=== PATIENT | male | born 1940 | race Caucasian/White ===

== ENCOUNTER → 2016-05-26 | Outpatient (CLI) | payer OTHER ==
[~2016-05-26] MED LIST: CARV6.252 PO; CHOL1TAB42 PO; CHOL20009 PO; CHOLCAP5 PO; ESCI1TAB10 PO; FURO20TA PO; GLC/500 PO; GLIM4TAB PO; GLIM4TAB2 PO; LPT/40 PO; METF1TAB53 PO; RAMI5CAP PO; ZLF/50 PO
--- NOTE | 2016-05-26 15:14 | DIAGNOSTIC IMAGING REPORT ---
TWO VIEW CHEST CLINICAL HISTORY: Hypertension. Diabetes. Cardiomyopathy. FINDINGS: PA and lateral chest radiographs are compared to study dated 02/04/2016. The PA view is degraded by patient rotation. The heart is enlarged and there is atherosclerotic calcification of the thoracic aorta. The pulmonary vasculature is noncongested. Chronic interstitial thickening is similar to previous. There is mild eventration of the right hemidiaphragm. Minimal bibasilar atelectasis is observed. There is no airspace consolidation or pleural effusion. There is no pneumothorax. The skeletal structures are osteopenic. The bony thorax appears intact. IMPRESSION: Cardiomegaly with no active disease in the chest. Electronically signed by: Yousif Basilio M.D. 05/26/2016 3:12 PM Dictated Date/Time: 05/26/2016 3:11 PM
[2016-05-26 17:19] LABS: BLOOD UREA NITROGEN 18 mg/dl (7-18); BUN/CREATININE RATIO 16.1 (10-20); CALCIUM 9.2 mg/dl (8.5-10.1); CARBON DIOXIDE 32 mmol/L (21-32); CHLORIDE 101 mmol/L (98-107); GLUCOSE 165 mg/dl (70-99); SODIUM 139 mmol/L (136-145)
== END | disposition home or self-care (01) ==
LOC: C.RADBC 14:48
PROVIDERS: ATTEND Internal Medicine Geriatric Medicine
DX: E11.9 Type 2 diabetes mellitus without complications (principal); I10 Essential (primary) hypertension; I42.9 Cardiomyopathy, unspecified; R06.02 Shortness of breath; I51.7 Cardiomegaly

== ENCOUNTER 2016-06-14 03:13 | Emergency (ER) | payer OTHER ==
[~2016-06-14] VITALS: Ht 185.4 cm; Wt 109.0 kg
[~2016-06-14 03:13] MED LIST changes: -CHOL1TAB42 PO; -CHOLCAP5 PO; -ESCI1TAB10 PO; -GLIM4TAB2 PO; -METF1TAB53 PO
[2016-06-14 03:19] VITALS: TEMP 36.8; Ht 185.4 cm; Wt 109.0 kg
[2016-06-14] MEDS ORDERED: HYDROCODONE/HOMATROPINE SYRUP 5MG/1.5MG 5ML UDP PO STA (03:29)
[2016-06-14] MEDS ORDERED: ALBUT/IPRATROP 3MG/0.5MG NEB 3 ML VIAL INH STA (03:29)
--- NOTE | 2016-06-14 03:33 | EMERGENCY ROOM VISIT NOTE ---
History Report prepared by Jeremías: Carina Dorantes Under the Supervision of: Dr. Vinh Pelayo M.D. 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 The patient states that he saw his PCP about 1 week ago for a cough and had a chest x-ray with no pneumonia seen on the X-Ray. The patient states he saw his PCP again today and he believed that the patient has pneumonia and prescribe him a Z-pac. The patient states that due to his coughing and wheezing he has been unable to sleep the last 2-3 days causing him to come into the ED tonight. The patient denies any chest pain or swelling or pain in his legs. The patient denies any history of bronchitis or asthma. Source of History: patient Onset: 1 week DELIVERY STOCK CLERK Position: chest Timing: worsening Associated Symptoms: No chest pain Note: Associated symptoms: unable to sleep. Patient denies swelling or pain in legs. Review of Systems See HPI for pertinent positives & negatives. A total of 10 systems reviewed and were otherwise negative. Past Medical & Surgical Medical Problems: (1) Benign hypertension (2) Diabetes mellitus (3) Hyperlipidemia (4) Kidney stone Family History Diabetes mellitus Hypertension Kidney disease Kidney stones Social History Smoking Status: Never Smoker Alcohol Use: none Marital Status: Housing Status: lives with family Occupation Status: retired Current/Historical Medications Scheduled Atorvastatin (Lipitor), 40 MG PO QPM Carvedilol (Coreg), 1 TAB PO DAILY Cholecalciferol (Vitamin D), 2,000 MG PO BID Furosemide (Lasix), 1 TAB PO DAILY Glimepiride (Amaryl), 4 MG PO QAM Metformin Hcl (Glucophage), 500 MG PO QPM Ramipril (Ramipril), 5 MG PO DAILY AT NOON Sertraline HCl (Sertraline HCl), 50 MG PO DAILY Allergies Coded Allergies: Penicillins (Verified Allergy, Mild, 35 YRS AGO DEVELOPED RASH, 07/13/15) Physical Exam Vital Signs Date Time Temp Pulse Resp B/P Pulse Ox O2 Delivery O2 Flow Rate FiO2 06/14/16 03:58 106 18 123/75 94 Room Air 06/14/16 03:19 36.8 92 18 142/78 92 Room Air Physical Exam GENERAL: Patient is well appearing and in no acute distress. HEENT: No acute trauma, normocephalic atraumatic, mucous membranes moist, no nasal congestion, no scleral icterus. NECK: No stridor, no adenopathy, no meningismus, trachea is midline. LUNGS: Bilateral expiratory wheezing in both bases. HEART: Regular rate and rhythm. No murmurs, rubs, gallops appreciated. ABDOMEN: Soft, nontender, bowel sounds positive, no masses appreciated, no peritonitis. BACK: No midline tenderness, no CVA tenderness EXTREMITIES: Normal motion all extremities, no cyanosis, no edema. NEUROLOGIC: Alert and oriented, no acute motor or sensory deficits, no focal weakness, cranial nerves grossly intact. SKIN: No rash, no jaundice, no diaphoresis. Medical Decision & Procedures Medications Administered Medications (Trade) Dose Ordered Sig/Anastasiya Route Start Time Stop Time Status Last Admin Dose Admin Hydrocodone Bit/ Homatropine Methylb (Hycodan Syrup) 10 ml NOW STAT PO 06/14/16 03:29 06/14/16 03:30 DC 06/14/16 03:34 10 ML Albuterol/ Ipratropium (Duoneb) 6 ml NOW STAT INH 06/14/16 03:29 06/14/16 03:30 DC 06/14/16 03:34 6 ML Hydrocodone Bit/ Homatropine Methylb (Hycodan Elix Homepack 5/1.5MG/ 5ML) 1 homepack UD ONCE PO 06/14/16 04:15 06/14/16 04:16 DC 06/14/16 04:15 1 HOMEPACK ED Course 0323: The patient was evaluated in room A4. A complete history and physical exam was performed. 0329: Ordered DuoNeb 6 ml INH, Hycodan Syrup 10 ml PO. 0410: I reevaluated the patient and he states he is feeling much better and his breathing has improved. He has no more wheezing and wants to go home to sleep. The patient states he will follow up with his primary doctor in a few days. I discussed the discharge instructions: He verbalized understanding and agreement. The patient is ready for discharge. 0415: Ordered Albuterol 2 puffs INH, Hydrocodone Bit/ Homatropine methylb1 homepack PO. Medical Decision Differential: Infectious, Reactive Airway Disease, Pneumonia, Pneumothorax, COPD , CHF, ACS, Pulmonary Embolism, MSK, GI, Dissection, amongst other etiologies entertained. 75 yr old male arrives with persistent shob despite use of Tessalon pearls. Clearly bronchitis by exam though just started zpack. Hold steroids as he is diabetic. vast improvement with neb thus will send home with inhaler. He has great improvement in cough with hycodan. Discussed use and restrictions of both of these. No indication nor history to work up for PE and he has no hallmark of CHF. As he is feeling much improved will hold on any testing as he plans on following up with PCP in next few days. Discussed rted if worsening or other concerns. Impression Primary Impression: Acute bronchitis Scribe Attestation The scribe's documentation has been prepared under my direction and personally reviewed by me in its entirety. I confirm that the note above accurately reflects all work, treatment, procedures, and medical decision making performed by me. Departure Information Dispostion Home / Self-Care Referrals No Doctor, Assigned (PCP) Forms HOME CARE DOCUMENTATION FORM, IMPORTANT VISIT INFORMATION, WORK / SCHOOL INSTRUCTIONS Patient Instructions Bronchitis Acute, My [facility] Additional Instructions You have received a sedative cough medication. These medications may cause drowsiness and should not be used with other sedative medications. Do not drive , drink alcohol, perform dangerous activities, nor make important decisions after taking these medications. Problem Qualifiers Primary Impression: Acute bronchitis Bronchitis organism: unspecified organism Qualified Codes: J20.9 - Acute bronchitis, unspecified
[2016-06-14 03:58] VITALS: BP 123/75; PULSE 106; O2SAT 94
[2016-06-14] MEDS ORDERED: ALBUTEROL HFA 8 GM INHALER INH ONE (04:15)
[2016-06-14] MEDS ORDERED: HYCODAN 60ML BOTTLE HOMEPACK PO ONE (04:15)
[2016-09-08] MEDS ORDERED: METF1TAB53 PO (12:35)
[2016-09-08] MEDS ORDERED: FURO20TA PO (12:35)
[2016-09-08] MEDS ORDERED: GLIM4TAB2 PO (12:35)
[2016-09-08] MEDS ORDERED: CHOL1TAB42 PO (12:35)
[2016-09-08] MEDS ORDERED: ESCI1TAB10 PO (12:35)
== END 2016-06-14 04:31 | disposition home or self-care (01) ==
LOC: C.EDB 03:13 → C.EDA 04:31
DX: J20.9 Acute bronchitis, unspecified (principal); I10 Essential (primary) hypertension; E11.9 Type 2 diabetes mellitus without complications; E78.5 Hyperlipidemia, unspecified; Z83.3 Family history of diabetes mellitus; Z84.1 Family history of disorders of kidney and ureter

== ENCOUNTER → 2016-06-20 | Outpatient (CLI) | payer OTHER ==
[~2016-06-20] MED LIST changes: +CHOL1TAB42 PO; +CHOLCAP5 PO; +ESCI1TAB10 PO; +GLIM4TAB2 PO; +METF1TAB53 PO; +OPTIRAY 320 IV PRN
--- NOTE | 2016-06-20 14:54 | DIAGNOSTIC IMAGING REPORT ---
CT OF THE CHEST WITH IV CONTRAST CLINICAL HISTORY: Persistent cough. COMPARISON STUDY: Chest x-ray dated 05/26/2016 TECHNIQUE: Following the IV administration of 94 mL of Optiray-320, CT of the thorax was performed from the thoracic inlet to the lung bases. Images are reviewed in the axial, sagittal, and coronal planes. IV contrast was administered without complication. CT DOSE: 625.30 mGycm FINDINGS: Thyroid: Imaged portions of the thyroid gland are normal in appearance. Thoracic aorta: The thoracic aorta is normal in course and caliber, noting standard 3-vessel arch anatomy. No aneurysm or dissection is seen. Pulmonary vasculature: The pulmonary trunk is normal in caliber. There are no central filling defects identified to suggest pulmonary embolus. Note that this examination was not protocoled for the evaluation of pulmonary emboli. HEART: The heart is mildly enlarged. There is no evidence of a pericardial effusion. Lungs and pleural spaces: There are no pleural effusions. There is no lobar consolidation. There is mild lower lobe bronchial wall thickening. There are basilar atelectatic changes. There are several low suspicion subcentimeter 06/19/2016 fissure nodules. Mediastinum: There are mildly enlarged lymph nodes in the subcarinal region and as ago esophageal recess. Ruth: There are calcified right hilar lymph nodes. There are borderline enlarged bilateral hilar lymph nodes Axilla: There is no evidence of pathologic axillary lymphadenopathy Upper abdomen: There is a calcified gallstone. There is a 5 mm right renal calculus. Skeletal structures: There are no lytic or blastic osseous lesions. IMPRESSION: 1. No evidence of lobar consolidation 2. Lower lobe bronchial wall thickening and basilar atelectasis 3. Mild adenopathy 4. Cholelithiasis 5. Right-sided nephrolithiasis Electronically signed by: Chase Choi M.D. 06/20/2016 2:52 PM Dictated Date/Time: 06/20/2016 2:47 PM
== END | disposition home or self-care (01) ==
LOC: C.CTS 14:33
PROVIDERS: ATTEND Internal Medicine Geriatric Medicine
DX: R05 Cough (principal); R91.8 Other nonspecific abnormal finding of lung field; K80.20 Calculus of gallbladder without cholecystitis without obstruction; N20.0 Calculus of kidney

== ENCOUNTER → 2016-08-16 | Outpatient (CLI) | payer OTHER ==
[~2016-08-16] MED LIST changes: -OPTIRAY 320 IV PRN
[2016-08-16 13:03] LABS: BASO % 0.1 %; BASO ABS # 0.01 K/uL (0-0.2); COMPLETE YES; HEMATOCRIT 42.6 % (42-52); IG% 0.2 %; LYMPH % 11.9 %; LYMPH ABS # 1.13 K/uL (1.2-3.4); MEAN CELL VOLUME 86.8 fL (80-100); MEAN CORPUSCULAR HEMOGLOBIN 29.7 pg (25-34); MEAN CORPUSCULAR HGB CONC 34.3 g/dl (32-36); NEUT % 79.8 %; PLATELET COUNT 156 K/uL (130-400); RED BLOOD COUNT 4.91 M/uL (4.7-6.1); WHITE BLOOD COUNT 9.53 K/uL (4.8-10.8)
[2016-08-16 13:08] LABS: BLOOD UREA NITROGEN 15 mg/dl (7-18); BUN/CREATININE RATIO 17.7 (10-20); CALCIUM 9.1 mg/dl (8.5-10.1); CARBON DIOXIDE 33 mmol/L (21-32); CHLORIDE 102 mmol/L (98-107); CREATININE 0.86 mg/dl (0.60-1.40); GLUCOSE 208 mg/dl (70-99); POTASSIUM 3.9 mmol/L (3.5-5.1); SODIUM 140 mmol/L (136-145)
[2016-08-16 13:57] LABS: ESTIMATED AVERAGE GLUCOSE 169 mg/dl; HA1C FLAG Normal (Normal)
== END | disposition home or self-care (01) ==
LOC: C.LABPBG 09:45
PROVIDERS: ATTEND Internal Medicine Geriatric Medicine
DX: E11.9 Type 2 diabetes mellitus without complications (principal)

== ENCOUNTER → 2016-08-18 | Outpatient (CLI) | payer OTHER ==
--- NOTE | 2016-08-18 14:12 | DIAGNOSTIC IMAGING REPORT ---
CHEST 2 VIEWS ROUTINE CLINICAL HISTORY: TYPE 2 DIABETES MELLITUS dyspnea COMPARISON STUDY: 05/26/2016 FINDINGS: The bones soft tissues and hemidiaphragms are normal. The cardiomediastinal silhouette is normal. The lungs are clear. The pulmonary vasculature is normal. IMPRESSION: Negative chest. Electronically signed by: Theron Rodriguez M.D. 08/18/2016 2:10 PM Dictated Date/Time: 08/18/2016 2:10 PM
== END | disposition home or self-care (01) ==
LOC: C.RADBC 13:28
PROVIDERS: ATTEND Internal Medicine Geriatric Medicine
DX: E11.9 Type 2 diabetes mellitus without complications (principal)

== ENCOUNTER → 2016-09-15 | Day surgery (SDC) | payer OTHER ==
[2016-09-08 12:36] VITALS: Ht 185.4 cm; Wt 106.4 kg
[~2016-09-15] VITALS: Ht 185.4 cm; Wt 106.4 kg
[~2016-09-15] MED LIST changes: -CHOL20009 PO; -GLC/500 PO; -GLIM4TAB PO; +KETAMINE HCL INJ 50 MG/ML 10 ML VIAL ONE; +LIDOCAINE HCL 2% 2 ML VIAL (20MG/ML) ONE; +MIDAZOLAM HCL 1 MG/ML 2ML VIAL ONE; +PROPOFOL IV EMULSION 10 MG/ML 20 ML VIAL IV ONE; -RAMI5CAP PO; +SODIUM CHLORIDE 0.9% 500ML 500 ML IV ONE; -ZLF/50 PO
--- NOTE | 2016-09-15 14:30 | Endo History and Physical ---
History & Physical Date of Service: September 15, 2016. Chief Complaint: GERD,constipation Referring Physician: Dr. Dewey Guzman History of Present Illness constipation/GERD Past Medical History Diabetes, Arthritis, High Cholesterol, Hypertension Past Surgical History Hx Cardiac Surgery: Yes (HEART CATH X 3 (NO STENTS)) Hx Internal Defibrillator: No Hx Pacemaker: No Hx Abdominal Surgery: No Hx of Implantable Prosthesis: No Hx Post-Op Nausea and Vomiting: No Hx Cancer Surgery: No Hx Thoracic Surgery: No Hx Orthopedic: Yes (RT TKA, LEFT ACHILLES TENDON REPAIR) Hx Urinary Tract Surgery: Yes (LITHOTRIPSY) Family History None Social History Smoking Status: Never Smoker Hx Substance Use: No Hx Alcohol Use: Yes (1 BEER DAILY) Allergies Coded Allergies: Penicillins (Verified Allergy, Mild, 35 YRS AGO DEVELOPED RASH, 09/08/16) Sertraline (Verified Allergy, Unknown, DID NOT TOLERATE MED, 09/08/16) Current Medications Reported Home Medications Medications Dose Route/Sig Max Daily Dose Days Date Category Vitamin D (Cholecalciferol) 5,000 Unit Tab 1 Tab PO DAILY AT LUNCH 09/08/16 Reported Glimepiride 4 Mg Tab 1 Tab PO QAM 90 09/08/16 Reported Glucophage Ext Rel (Metformin Hcl) 1,000 Mg Tab 1,000 Mg PO DAILY AT LUNCH 09/08/16 Reported Lasix (Furosemide) 20 Mg Tab 20 Mg PO QAM 09/08/16 Reported Lexapro (Escitalopram Oxalate) 20 Mg Tab 20 Mg PO QAM 09/08/16 Reported Coreg (Carvedilol) 6.25 Mg Tab 1 Tab PO QPM 02/23/15 Reported Lipitor (Atorvastatin) 40 Mg Tab 40 Mg PO QPM 08/11/12 Reported Vital Signs Weight (Kilograms): 106.36 Height (Feet): 6 Height (Inches): 1 Date Time Temp Pulse Resp B/P Pulse Ox O2 Delivery O2 Flow Rate FiO2 09/15/16 13:30 36.5 54 20 139/87 95 Room Air Physical Exam AAO x3 Nl s1s2 Lungs CTA Abd soft NT/ND + BS - CCE Assessment and Plan EGD/colon
--- NOTE | 2016-09-15 15:38 | GI REPORT ---
Procedure Date: 09/15/2016 1:25 PM Procedure: Colonoscopy Indications: Heme positive stool Medicines: Propofol per Anesthesia Complications: No immediate complications. Estimated blood loss: None. Estimated Blood Loss: Estimated blood loss: none. Procedure: Pre-Anesthesia Assessment: - Prior to the procedure, a History and Physical was performed, and patient medications and allergies were reviewed. The patient's tolerance of previous anesthesia was also reviewed. The risks and benefits of the procedure and the sedation options and risks were discussed with the patient. All questions were answered, and informed consent was obtained. Prior Anticoagulants: The patient has taken no previous anticoagulant or antiplatelet agents. ASA Grade Assessment: III - A patient with severe systemic disease. After reviewing the risks and benefits, the patient was deemed in satisfactory condition to undergo the procedure. After I obtained informed consent, the scope was passed under direct vision. Throughout the procedure, the patient's blood pressure, pulse, and oxygen saturations were monitored continuously. The scope was introduced through the anus and advanced to the terminal ileum, with identification of the appendiceal orifice and IC valve. The colonoscopy was performed without difficulty. The patient tolerated the procedure well. The quality of the bowel preparation was good. Findings: The perianal and digital rectal examinations were normal. Pertinent negatives include normal sphincter tone, no palpable rectal lesions and no anal lesion or abnormality was detected. Two sessile polyps were found at 90 cm proximal to the anus. The polyps were 8 mm in size. These polyps were removed with a hot snare. Resection and retrieval were complete. Estimated blood loss was minimal. Verification of patient identification for the specimen was done by the physician and cathodic protection technician using the patient's name and medical record number. A 6 mm polyp was found at 40 cm proximal to the anus. The polyp was sessile. The polyp was removed with a cold snare. Resection and retrieval were complete. Estimated blood loss was minimal. Verification of patient identification for the specimen was done by the physician and cathodic protection technician using the patient's name and medical record number. The terminal ileum appeared normal. The exam was otherwise without abnormality. The retroflexed view of the distal rectum and anal verge was normal and showed no anal or rectal abnormalities. Non-bleeding internal hemorrhoids were found during retroflexion. The hemorrhoids were mild. Impression: - Two 8 mm polyps at 90 cm proximal to the anus, removed with a hot snare. Resected and retrieved. - One 6 mm polyp at 40 cm proximal to the anus, removed with a cold snare. Resected and retrieved. - The examined portion of the ileum was normal. - The examination was otherwise normal. - The distal rectum and anal verge are normal on retroflexion view. - Non-bleeding internal hemorrhoids. Recommendation: - Patient has a contact number available for emergencies. The signs and symptoms of potential delayed complications were discussed with the patient. Return to normal activities tomorrow. Written discharge instructions were provided to the patient. - Resume regular diet. - Repeat colonoscopy for surveillance based on pathology results. - Return to referring physician as previously scheduled. - Continue present medications. MD Brian Frost MD 09/15/2016 3:37:51 PM This report has been signed electronically. Note Initiated On: 09/15/2016 1:25 PM I attest to the content of the Intraoperative Record and orders documented therein, exceptions below
--- NOTE | 2016-09-15 15:42 | GI REPORT ---
Procedure Date: 09/15/2016 1:24 PM Procedure: Upper GI endoscopy Indications: Heme positive stool Medicines: Propofol per Anesthesia Complications: No immediate complications. Estimated Blood Loss: Estimated blood loss: none. Procedure: Pre-Anesthesia Assessment: - Prior to the procedure, a History and Physical was performed, and patient medications and allergies were reviewed. The patient's tolerance of previous anesthesia was also reviewed. The risks and benefits of the procedure and the sedation options and risks were discussed with the patient. All questions were answered, and informed consent was obtained. Prior Anticoagulants: The patient has taken no previous anticoagulant or antiplatelet agents. ASA Grade Assessment: III - A patient with severe systemic disease. After reviewing the risks and benefits, the patient was deemed in satisfactory condition to undergo the procedure. After obtaining informed consent, the endoscope was passed under direct vision. Throughout the procedure, the patient's blood pressure, pulse, and oxygen saturations were monitored continuously. The scope was introduced through the mouth, and advanced to the mid-jejunum. The upper GI endoscopy was accomplished without difficulty. The patient tolerated the procedure well. Findings: The examined esophagus was normal. The entire examined stomach was normal. The examined duodenum was normal. The examined jejunum was normal. The cardia and gastric fundus were normal on retroflexion. Retained gastric contents are not identified on this exam. The Z-line was irregular and was found 39 cm from the incisors. Impression: - Normal esophagus. - Normal stomach. - Normal examined duodenum. - Normal examined jejunum. - No specimens collected. Recommendation: - Discharge patient to home (ambulatory). - Patient has a contact number available for emergencies. The signs and symptoms of potential delayed complications were discussed with the patient. Return to normal activities tomorrow. Written discharge instructions were provided to the patient. - Perform a colonoscopy today. MD Brian Frost MD 09/15/2016 3:41:31 PM This report has been signed electronically. Note Initiated On: 09/15/2016 1:24 PM I attest to the content of the Intraoperative Record and orders documented therein, exceptions below
--- NOTE | 2016-09-15 15:43 | Anesthesiology Progress Note ---
Anesthesia Post Op Note Date & Time September 15, 2016 at 15:43 Vital Signs Pain Intensity: 0 Vital Signs Past 12 Hours Date Time Temp Pulse Resp B/P Pulse Ox O2 Delivery O2 Flow Rate FiO2 09/15/16 15:23 82 20 110/76 94 Room Air 09/15/16 13:30 36.5 54 20 139/87 95 Room Air Notes Mental Status: alert / awake / arousable, participated in evaluation Pt Amnestic to Procedure: Yes Nausea / Vomiting: adequately controlled Pain: adequately controlled Airway Patency, RR, SpO2: stable & adequate BP & HR: stable & adequate Hydration State: stable & adequate Anesthetic Complications: no major complications apparent
--- NOTE | 2016-09-15 15:49 | Discharge Instructions ---
Endoscopy Patient Instructions Date / Procedure(s) Performed September 15, 2016. Colonoscopy, EGD Allergy Information Coded Allergies: Penicillins (Verified Allergy, Mild, 35 YRS AGO DEVELOPED RASH, 09/08/16) Sertraline (Verified Allergy, Unknown, DID NOT TOLERATE MED, 09/08/16) Discharge Date / Findings September 15, 2016. Medication Instructions Stopped Medication(s): stopped Metformin on Monday Restart Stopped Medication(s): Reported Home Medications Medications Dose Route/Sig Max Daily Dose Days Date Category Vitamin D (Cholecalciferol) 5,000 Unit Tab 1 Tab PO DAILY AT LUNCH 09/08/16 Reported Glimepiride 4 Mg Tab 1 Tab PO QAM 90 09/08/16 Reported Glucophage Ext Rel (Metformin Hcl) 1,000 Mg Tab 1,000 Mg PO DAILY AT LUNCH 09/08/16 Reported Lasix (Furosemide) 20 Mg Tab 20 Mg PO QAM 09/08/16 Reported Lexapro (Escitalopram Oxalate) 20 Mg Tab 20 Mg PO QAM 09/08/16 Reported Coreg (Carvedilol) 6.25 Mg Tab 1 Tab PO QPM 02/23/15 Reported Lipitor (Atorvastatin) 40 Mg Tab 40 Mg PO QPM 08/11/12 Reported Reported Home Medications Medications Dose Route/Sig Max Daily Dose Days Date Category Vitamin D (Cholecalciferol) 5,000 Unit Tab 1 Tab PO DAILY AT LUNCH 09/08/16 Reported Glimepiride 4 Mg Tab 1 Tab PO QAM 90 09/08/16 Reported Glucophage Ext Rel (Metformin Hcl) 1,000 Mg Tab 1,000 Mg PO DAILY AT LUNCH 09/08/16 Reported Lasix (Furosemide) 20 Mg Tab 20 Mg PO QAM 09/08/16 Reported Lexapro (Escitalopram Oxalate) 20 Mg Tab 20 Mg PO QAM 09/08/16 Reported Coreg (Carvedilol) 6.25 Mg Tab 1 Tab PO QPM 02/23/15 Reported Lipitor (Atorvastatin) 40 Mg Tab 40 Mg PO QPM 08/11/12 Reported Provider Instructions Activity Restrictions - No exercising or heavy lifting for 24 hours. - Do not drink alcohol the day of the procedure. - Do not drive a car or operate machinery until the day after the procedure. - Do not make any important decisions or sign important papers in 24 hours after the procedure. Following Day: - Return to full activity which may include returning to work/school. Diet Start your diet with liquids and light foods (jello, soup, juice, toast). Then eat your usual diet if not nauseated. Treatment For Common After Affects For mild abdominal pain, bloating, or excessive gas: - Rest - Eat lightly - Lie on right side Reported Home Medications Medications Dose Route/Sig Max Daily Dose Days Date Category Vitamin D (Cholecalciferol) 5,000 Unit Tab 1 Tab PO DAILY AT LUNCH 09/08/16 Reported Glimepiride 4 Mg Tab 1 Tab PO QAM 90 09/08/16 Reported Glucophage Ext Rel (Metformin Hcl) 1,000 Mg Tab 1,000 Mg PO DAILY AT LUNCH 09/08/16 Reported Lasix (Furosemide) 20 Mg Tab 20 Mg PO QAM 09/08/16 Reported Lexapro (Escitalopram Oxalate) 20 Mg Tab 20 Mg PO QAM 09/08/16 Reported Coreg (Carvedilol) 6.25 Mg Tab 1 Tab PO QPM 02/23/15 Reported Lipitor (Atorvastatin) 40 Mg Tab 40 Mg PO QPM 08/11/12 Reported Follow-Up Information Follow-up with Dr. Dewey Guzman as scheduled Anesthesia Information What You Should Know You have had a procedure that required some medicine to reduce anxiety and discomfort. This treatment is called moderate sedation. After receiving the treatment, you may be sleepy, but you will be able to breathe on your own. The effects of the treatment may last for several hours. Follow these instructions along with Activity/Diet recommendations noted above: * Do NOT do anything where dizziness or clumsiness would be dangerous. * Rest quietly at home today, then you can be up and about tomorrow. * Have a responsible person stay with you the rest of today. * You may have had an I.V. today. If so, you may take the dressing off later today. Recommendations Call your doctor if: * Trouble breathing * Continuous vomiting for more than 24 hours * Temperature above 101 degrees * Severe abdominal pain or bloating * Pain not relieved by pain medicine ordered * There is increased drainage or redness from any incision * A large amount of rectal bleeding greater than 2-3 tablespoons. (If you had a polyp/s removed or have hemorrhoids, a small amount of blood - from the rectum is to be expected.) * You have any unanswered questions or concerns. IN THE EVENT OF A SERIOUS EMERGENCY, GO TO THE NEAREST EMERGENCY ROOM Your discharge instructions were prepared by provider Brian Guerrero. Patient Instructions Signature Page Michael Grimes Patient (or Guardian) Signature/Date: I have read and understand the instructions given to me by my caregivers. Caregiver/RN/Doctor Signature/Date: The above-named patient and/or guardian has received patient instructions on this date. + Original Patient Signature Page (only) stays with chart. Please make copy for patient.
[2016-09-15 16:25] VITALS: BP 112/67; PULSE 76; O2SAT 95
== END | disposition home or self-care (01) ==
LOC: C.GI 11:59
PROVIDERS: ATTEND Internal Medicine Gastroenterology
DX: R19.5 Other fecal abnormalities (principal); K59.00 Constipation, unspecified; K21.9 Gastro-esophageal reflux disease without esophagitis; D12.6 Benign neoplasm of colon, unspecified; K64.8 Other hemorrhoids; I25.10 Atherosclerotic heart disease of native coronary artery without angina pectoris; I10 Essential (primary) hypertension; E11.9 Type 2 diabetes mellitus without complications; I50.9 Heart failure, unspecified; F41.9 Anxiety disorder, unspecified; E78.00 Pure hypercholesterolemia, unspecified; F32.9 Major depressive disorder, single episode, unspecified; Z88.0 Allergy status to penicillin; Z96.651 Presence of right artificial knee joint; E66.9 Obesity, unspecified; Z68.30 Body mass index [BMI] 30.0-30.9, adult; Z98.890 Other specified postprocedural states

== ENCOUNTER 2016-09-28 06:31 | Emergency (ER) | payer OTHER ==
[~2016-09-28] VITALS: Ht 185.4 cm; Wt 106.3 kg
[~2016-09-28 06:31] MED LIST changes: -CHOLCAP5 PO; -KETAMINE HCL INJ 50 MG/ML 10 ML VIAL ONE; -LIDOCAINE HCL 2% 2 ML VIAL (20MG/ML) ONE; -MIDAZOLAM HCL 1 MG/ML 2ML VIAL ONE; -PROPOFOL IV EMULSION 10 MG/ML 20 ML VIAL IV ONE; -SODIUM CHLORIDE 0.9% 500ML 500 ML IV ONE
[2016-09-28 06:34] VITALS: TEMP 36.5; Ht 185.4 cm; Wt 106.3 kg
[2016-09-28] MEDS ORDERED: CHOLCAP5 PO (06:56)
--- NOTE | 2016-09-28 06:59 | EMERGENCY ROOM VISIT NOTE ---
History Report prepared by Jeremías: Ethan Vee Under the Supervision of: Dr. Tayler Whitaker M.D. First contact with patient: 06:41 Chief Complaint: SHORTNESS OF BREATH Stated Complaint: SHORTNESS OF BREATH Nursing Triage Summary: c/o SOB and tightness in bilateral shoulders and across chest since monday. intermittent sharp pains in mid chest. hx htn, chf History of Present Illness The patient is a 76 year old male with a history of CHF who presents to the Emergency Room with complaints of worsening shortness of breath for the past three days. The patient was sleeping fine last night in his bed, but when he got up at 0330 he was feeling very short of breath. His breathing is worse with exertion. He also complains bilateral shoulder soreness. He denies chest pain, radiation to the jaw, fevers, or cough. He has a history of CHF but notes that he currently feels different than when he was diagnosed with it. The patient is on Lasix. The patient is scheduled to see his facing baster in [place] tomorrow. He has had 2-3 cardiac catheterizations in the past with the last being 1-2 years ago. The patient saw Dr. Guzman's PA yesterday (Family Medicine) but did not have any imaging. The patient recently had a colonoscopy and EGD. Source of History: patient Onset: three days ago Position: other (respiratory) Quality: other (short of breath) Timing: worsening Modifying Factors (Worsening): exertion Associated Symptoms: No fevers, No cough, No chest pain Review of Systems See HPI for pertinent positives & negatives. A total of 10 systems reviewed and were otherwise negative. Past Medical & Surgical Medical Problems: (1) Benign hypertension (2) Diabetes mellitus (3) Hyperlipidemia (4) Kidney stone Family History Diabetes mellitus Hypertension Kidney disease Kidney stones Social History Smoking Status: Never Smoker Alcohol Use: none Marital Status: Housing Status: lives with family Occupation Status: retired Current/Historical Medications Scheduled Atorvastatin (Lipitor), 40 MG PO QPM Carvedilol (Coreg), 3.125 MG PO BID Cholecalciferol (Vitamin D3), 5,000 UNITS PO DAILY AT LUNCH Escitalopram Oxalate (Lexapro), 20 MG PO QAM Furosemide (Lasix), 20 MG PO QAM Furosemide (Lasix), 20-40 MG PO DAILY Glimepiride (Glimepiride), 1 TAB PO QAM Metformin Hcl (Glucophage Ext Rel), 1,000 MG PO DAILY AT LUNCH Allergies Coded Allergies: Penicillins (Verified Allergy, Mild, 35 YRS AGO DEVELOPED RASH, 09/28/16) Sertraline (Verified Allergy, Unknown, DID NOT TOLERATE MED, 09/28/16) Physical Exam Vital Signs Date Time Temp Pulse Resp B/P (MAP) Pulse Ox O2 Delivery O2 Flow Rate FiO2 09/28/16 08:49 75 16 128/84 94 09/28/16 07:53 87 24 129/78 94 Room Air 09/28/16 06:52 85 09/28/16 06:42 95 Room Air 09/28/16 06:34 36.5 78 18 127/81 94 Room Air Physical Exam Vital signs reviewed. General: Well-appearing male, in no significant distress. HEENT: No scleral icterus, PERRLA, neck supple. Atraumatic. Cardiovascular: Regular rate and rhythm, no extra sounds. Pulmonary: Crackles at the bases bilaterally, normal work of breathing. Abdomen: Soft, nontender, nondistended, positive bowel sounds. Musculoskeletal: Atraumatic, no peripheral edema. Neurologic: Patient awake alert and oriented x 3, full strength in all 4 extremities. Cranial nerves 2 through 12 grossly intact. Skin: Warm, dry, no rash. Medical Decision & Procedures ER Provider Diagnostic Interpretation: X-ray results as stated below per interpretation by me and the radiologist: CHEST 2 VIEWS ROUTINE CLINICAL HISTORY: Congestive heart failure. Shortness of breath. Wheezing. COMPARISON STUDY: Chest CT August 18, 2016. FINDINGS: There is no pneumothorax or pleural effusion. No consolidation is identified to suggest pneumonia. Star B lines indicate mild pulmonary edema. Moderate cardiomegaly is unchanged. IMPRESSION: 1. Mild interstitial pulmonary edema. 2. Moderate cardiomegaly. Electronically signed by: iVet Badillo M.D. 09/28/2016 7:32 AM Dictated Date/Time: 09/28/2016 7:30 AM Laboratory Results 09/28/16 07:05 Red Blood Count 4.77, Mean Corpuscular Volume 86.0, Mean Corpuscular Hemoglobin 28.3, Mean Corpuscular Hemoglobin Concent 32.9, Mean Platelet Volume 8.7, Neutrophils (%) (Auto) 74.4, Lymphocytes (%) (Auto) 16.6, Monocytes (%) (Auto) 6.9, Eosinophils (%) (Auto) 1.7, Basophils (%) (Auto) 0.2, Neutrophils # (Auto) 6.88, Lymphocytes # (Auto) 1.54, Monocytes # (Auto) 0.64, Eosinophils # (Auto) 0.16, Basophils # (Auto) 0.02 09/28/16 07:05 Test 09/28/16 07:05 09/28/16 07:10 White Blood Count 9.26 K/uL (4.8-10.8) Red Blood Count 4.77 M/uL (4.7-6.1) Hemoglobin 13.5 g/dL (14.0-18.0) Hematocrit 41.0 % (42-52) Mean Corpuscular Volume 86.0 fL (80-100) Mean Corpuscular Hemoglobin 28.3 pg (25-34) Mean Corpuscular Hemoglobin Concent 32.9 g/dl (32-36) Platelet Count 131 K/uL (130-400) Mean Platelet Volume 8.7 fL (7.4-10.4) Neutrophils (%) (Auto) 74.4 % Lymphocytes (%) (Auto) 16.6 % Monocytes (%) (Auto) 6.9 % Eosinophils (%) (Auto) 1.7 % Basophils (%) (Auto) 0.2 % Neutrophils # (Auto) 6.88 K/uL (1.4-6.5) Lymphocytes # (Auto) 1.54 K/uL (1.2-3.4) Monocytes # (Auto) 0.64 K/uL (0.11-0.59) Eosinophils # (Auto) 0.16 K/uL (0-0.5) Basophils # (Auto) 0.02 K/uL (0-0.2) RDW Standard Deviation 42.0 fL (36.4-46.3) RDW Coefficient of Variation 13.4 % (11.5-14.5) Immature Granulocyte % (Auto) 0.2 % Immature Granulocyte # (Auto) 0.02 K/uL (0.00-0.02) Anion Gap 6.0 mmol/L (3-11) Est Creatinine Clear Calc Drug Dose 88.4 ml/min Estimated GFR () 94.5 Estimated GFR (Non- 81.6 BUN/Creatinine Ratio 16.0 (10-20) Calcium Level 8.5 mg/dl (8.5-10.1) Magnesium Level 1.9 mg/dl (1.8-2.4) Total Bilirubin 3.3 mg/dl (0.2-1) Direct Bilirubin 0.2 mg/dl (0-0.2) Aspartate Amino Transf (AST/SGOT) 10 U/L (15-37) Alanine Aminotransferase (ALT/SGPT) 22 U/L (12-78) Alkaline Phosphatase 116 U/L (45-117) Total Creatine Kinase 41 U/L (39-308) Creatine Kinase MB 0.9 ng/ml (0.5-3.6) Creatine Kinase MB Ratio 2.2 (0-3.0) Total Protein 6.8 gm/dl (6.4-8.2) Albumin 3.5 gm/dl (3.4-5.0) Bedside Troponin I 0.000 ng/ml (0-0.045) RV-Vkb-U-Type Natriuretic Peptide 1212 pg/ml (0-1800) Laboratory results per my review. 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 The patient was evaluated in room B4b. A complete history and physical examination was performed. 0741: Lasix 40 mg IV. 0840: Reassessed the patient. I discussed findings with him. He verbalized agreement of the treatment plan. He was discharged home. Medical Decision Differential diagnosis: Etiologies such as infections, reactive airway disease, pneumonia, pneumothorax , COPD, CHF, cardiac ischemia, pulmonary embolism, musculoskeletal, gastrointestinal, as well as others were entertained. Blood Pressure Screening: Patient was found to have normal blood pressure on screening and does not require follow-up. Medication Reconciliation: I attest that I have personally reviewed the patient' s current medication list. This patient was evaluated and appeared to be in no significant distress. Physical examination reveals crackles to the Luke's bilaterally. The patient is in no acute respiratory distress. He does not have an oxygen requirement currently. Laboratory work is fairly unrevealing. Chest x-ray reveals congestive heart failure. He was given 40 mg of IV Lasix with some diuresis in the department. EKG reveals no evidence of acute ischemia. Cardiac enzymes are normal. The patient was discharged to increase his Lasix. He will take 40 mg later this afternoon and 40 mg again in the morning. He has a follow-up appointment with his facing baster tomorrow and will return to the ER for worsening of symptoms or any medical concerns. He and his are happy with the plan and agree. Impression Primary Impression: Congestive heart failure Scribe Attestation The scribe's documentation has been prepared under my direction and personally reviewed by me in its entirety. I confirm that the note above accurately reflects all work, treatment, procedures, and medical decision making performed by me. Departure Information Dispostion Home / Self-Care Prescriptions Furosemide (LASIX) 20 Mg Tab 20-40 MG PO DAILY, #60 TAB Prov: Tayler Whitaker M.D. 09/28/16 Referrals Dewey Guzman M.D. (PCP) Forms HOME CARE DOCUMENTATION FORM, IMPORTANT VISIT INFORMATION Patient Instructions My [facility] Additional Instructions Diagnosis: Congestive heart failure Take Lasix 40 mg later this afternoon. Increase your daily Lasix to 40 mg in the morning. Continue your other medications as prescribed. Follow-up with your facing baster tomorrow as scheduled. Return to the emergency department for worsening of symptoms or any medical concerns.
[2016-09-28 07:15] LABS: BASO % 0.2 %; BASO ABS # 0.02 K/uL (0-0.2); COMPLETE YES; EOS % 1.7 %; IG% 0.2 %; LYMPH % 16.6 %; LYMPH ABS # 1.54 K/uL (1.2-3.4); MEAN CORPUSCULAR HEMOGLOBIN 28.3 pg (25-34); MEAN CORPUSCULAR HGB CONC 32.9 g/dl (32-36); MEAN PLATELET VOLUME 8.7 fL (7.4-10.4); MONO % 6.9 %; NEUT % 74.4 %; PLATELET COUNT 131 K/uL (130-400); RED BLOOD COUNT 4.77 M/uL (4.7-6.1); WHITE BLOOD COUNT 9.26 K/uL (4.8-10.8)
[2016-09-28 07:33] LABS: CALCIUM 8.5 mg/dl (8.5-10.1); CREATININE 0.91 mg/dl (0.60-1.40); MAGNESIUM 1.9 mg/dl (1.8-2.4); POTASSIUM 4.1 mmol/L (3.5-5.1)
--- NOTE | 2016-09-28 07:33 | DIAGNOSTIC IMAGING REPORT ---
CHEST 2 VIEWS ROUTINE CLINICAL HISTORY: Congestive heart failure. Shortness of breath. Wheezing. COMPARISON STUDY: Chest CT August 18, 2016. FINDINGS: There is no pneumothorax or pleural effusion. No consolidation is identified to suggest pneumonia. Star B lines indicate mild pulmonary edema. Moderate cardiomegaly is unchanged. IMPRESSION: 1. Mild interstitial pulmonary edema. 2. Moderate cardiomegaly. Electronically signed by: Viet Badillo M.D. 09/28/2016 7:32 AM Dictated Date/Time: 09/28/2016 7:30 AM
[2016-09-28 07:39] LABS: CKMB/CK RATIO 2.2 (0-3.0)
[2016-09-28] MEDS ORDERED: FUROSEMIDE 40 MG/4 ML VIAL IV STA (07:41)
[2016-09-28] MEDS ORDERED: FURO20TA PO (08:41)
[2016-09-28 08:49] VITALS: BP 128/84; PULSE 75; O2SAT 94
== END 2016-09-28 08:50 | disposition home or self-care (01) ==
LOC: C.EDB 06:32
DX: I50.9 Heart failure, unspecified (principal); Z79.899 Other long term (current) drug therapy; I10 Essential (primary) hypertension; E11.9 Type 2 diabetes mellitus without complications; E78.5 Hyperlipidemia, unspecified; Z87.442 Personal history of urinary calculi; Z83.3 Family history of diabetes mellitus; Z82.49 Family history of ischemic heart disease and other diseases of the circulatory system; Z84.1 Family history of disorders of kidney and ureter

== ENCOUNTER → 2016-12-12 | Outpatient (CLI) | payer OTHER ==
[~2016-12-12] MED LIST changes: -CHOL1TAB42 PO; +CHOLCAP5 PO
[2016-12-12 12:43] LABS: ESTIMATED AVERAGE GLUCOSE 186 mg/dl; HA1C FLAG Normal (Normal)
[2016-12-12 12:45] LABS: ALT/SGPT 30 U/L (12-78); BLOOD UREA NITROGEN 22 mg/dl (7-18); BUN/CREATININE RATIO 19.6 (10-20); CALCIUM 9.1 mg/dl (8.5-10.1); CARBON DIOXIDE 31 mmol/L (21-32); CHLORIDE 101 mmol/L (98-107); CHOLESTEROL 154 mg/dl (0-200); GLUCOSE 247 mg/dl (70-99); POTASSIUM 4.2 mmol/L (3.5-5.1); SODIUM 137 mmol/L (136-145)
[2016-12-12 12:55] LABS: ALKALINE PHOSPHATASE 115 U/L (45-117); AST/SGOT 14 U/L (15-37); CHOLESTEROL/HDL RATIO 3.4; HDL CHOLESTEROL 45 mg/dl; LDL CHOLESTEROL CALCULATED 69 mg/dl; TRIGLYCERIDES 202 mg/dl (0-150); VERY LOW DENSITY LIPOPROT CALC 40 mg/dl
== END | disposition home or self-care (01) ==
LOC: C.LABPBG 08:41
PROVIDERS: ATTEND Internal Medicine Geriatric Medicine
DX: I10 Essential (primary) hypertension (principal); E11.9 Type 2 diabetes mellitus without complications; E78.5 Hyperlipidemia, unspecified; I42.9 Cardiomyopathy, unspecified; E55.9 Vitamin D deficiency, unspecified; R74.8 Abnormal levels of other serum enzymes; F41.8 Other specified anxiety disorders

== ENCOUNTER → 2017-01-13 | Outpatient (CLI) | payer OTHER ==
--- NOTE | 2017-01-13 12:49 | DIAGNOSTIC IMAGING REPORT ---
KUB HISTORY: N20.0 [id number] COMPARISON: KUB 02/04/2016. FINDINGS: The bowel gas pattern is unremarkable. There are no dilated loops of small bowel to suggest an obstruction. No left renal calculi. Possible punctate stone within the upper pole of the right kidney. There is a new 5 mm calcification within the midline of the deep pelvis. This favors a bladder stone. No left ureteral calculi. An 8 mm oval calcification overlying the right sacral. This is stable compared the prior studies and is likely vascular. No pneumoperitoneum or pneumatosis. IMPRESSION: 1. Suspect a punctate right renal stone. 2. No ureteral calculi. 3. A new 4 mm calcification within the midline of the deep pelvis. This likely represents a bladder stone. Electronically signed by: Martin Cisneros M.D. 01/13/2017 12:48 PM Dictated Date/Time: 01/13/2017 12:46 PM
--- NOTE | 2017-01-20 11:03 | CODING QUERY MEDICAL NECESSITY ---
SUPPORTING DIAGNOSIS NEEDED A supporting diagnosis is required for the test/procedure performed on this patient in order for us to be reimbursed by the patient's insurance. Please provide a supporting diagnosis for the following test/procedure listed below next to the test name along with your signature. *If there is no additional diagnosis for this patient that would support the following test/procedure please document that below next to the test/procedure. Test(s)/Procedure(s) that require a supporting diagnosis: * PSA DIAGNOSIS: Provider Signature: Date: Thank you Aylin Hernandez [employer] Once completed, please kindly fax back to [phone] For questions please call [phone]
== END | disposition home or self-care (01) ==
LOC: C.RAD 11:37
PROVIDERS: ATTEND Urology
DX: N20.0 Calculus of kidney (principal)

== ENCOUNTER → 2017-03-13 | Outpatient (CLI) | payer OTHER ==
[2017-03-13 18:04] LABS: BLOOD UREA NITROGEN 14 mg/dl (7-18); BUN/CREATININE RATIO 11.6 (10-20); CALCIUM 9.4 mg/dl (8.5-10.1); CARBON DIOXIDE 31 mmol/L (21-32); CHLORIDE 100 mmol/L (98-107); CREATININE 1.23 mg/dl (0.60-1.40); GLUCOSE 169 mg/dl (70-99); POTASSIUM 3.9 mmol/L (3.5-5.1); SODIUM 141 mmol/L (136-145)
[2017-03-14 06:01] LABS: ESTIMATED AVERAGE GLUCOSE 146 mg/dl; HA1C FLAG Normal (Normal)
== END | disposition home or self-care (01) ==
LOC: C.LABPBG 15:08
PROVIDERS: ATTEND Internal Medicine Geriatric Medicine
DX: I10 Essential (primary) hypertension (principal); E11.9 Type 2 diabetes mellitus without complications

== ENCOUNTER 2017-06-09 15:45 | Emergency (ER) | payer OTHER ==
[~2017-06-09] VITALS: Ht 185.4 cm; Wt 106.0 kg
[2017-06-09 15:49] VITALS: TEMP 36.3; Ht 185.4 cm; Wt 106.0 kg
--- NOTE | 2017-06-09 18:23 | EMERGENCY ROOM VISIT NOTE ---
History Report prepared by Jeremías: Saeed Birch Under the Supervision of: Dr. Yousif Morrison M.D. First contact with patient: 18:13 Chief Complaint: SHORTNESS OF BREATH Stated Complaint: SOB;LOW BLOOD PRESSURE;HIGH PULSE Nursing Triage Summary: c/o SOB no cough no pain no LE edema pt is not in any resp distress in triage speaking full sent History of Present Illness The patient is a 76 year old male who presents to the Emergency Room with complaints of worsening respiratory symptoms for the past two weeks. He has a past medical history of a previous episode of CHF that occurred 1 year ago and he has had bronchitis. He denies any other respiratory history, previous AK's, or personal/family history of blood clots. Over this time, the patient noticed that he has become more short of breath. He notes that his breathing especially worsens with exertion. Today, the patient's breathing was the worst it has been over these two weeks, so he used his inhaler that he had from his previous bronchitis. After taking two puffs earlier today, he thought that his breathing felt significantly improved. However, just to be sure, he presented to a medical clinic for further evaluation. His blood pressure was found to be decreased at 104/54 with a heart rate of 113 and he was referred to the ER for further evaluation. He denies any fevers, chills, coughing, rhinorrhea, sinus congestion, chest pain, abdominal pain, back pain, or any other abnormal symptoms at this time. He denies any recent long travel, but has been having some recent stressors for the past three weeks. Source of History: patient Onset: two weeks ago Position: other (Respiratory System) Symptom Intensity: moderate Quality: other (Shortness of breath) Timing: worsening Modifying Factors (Worsening): exertion Modifying Factors (Relieving): other (Inhalers) Associated Symptoms: No fevers, No chills, No cough, No chest pain, No abdominal pain, No back pain Note: He denies any other abnormal symptoms. Review of Systems See HPI for pertinent positives & negatives. A total of 10 systems reviewed and were otherwise negative. Past Medical & Surgical Medical Problems: (1) Benign hypertension (2) Diabetes mellitus (3) Hyperlipidemia (4) Kidney stone Family History Diabetes mellitus Hypertension Kidney disease Kidney stones Social History Smoking Status: Never Smoker Alcohol Use: none Marital Status: Housing Status: lives with family Occupation Status: retired Current/Historical Medications Scheduled Atorvastatin (Lipitor), 40 MG PO QPM Carvedilol (Carvedilol), 3.125 MG PO BID Cholecalciferol (Vitamin D3), 5,000 INTER.UNIT PO DAILY Escitalopram Oxalate (Escitalopram Oxalate), 20 MG PO QAM Glimepiride (Glimepiride), 4 MG PO QAM Lisinopril (Lisinopril), 2.5 MG PO DAILY Metformin Hcl (Glucophage Ext Rel), 1,000 MG PO BID Spironolactone (Spironolactone), 12.5 MG PO DAILY Scheduled PRN Furosemide (Furosemide), 40 MG PO DAILY PRN for Fluid Retention Allergies Coded Allergies: Penicillins (Verified Allergy, Mild, 35 YRS AGO DEVELOPED RASH, 09/28/16) Sertraline (Verified Allergy, Unknown, DID NOT TOLERATE MED, 09/28/16) Physical Exam Vital Signs Date Time Temp Pulse Resp B/P (MAP) Pulse Ox O2 Delivery O2 Flow Rate FiO2 06/09/17 21:10 76 18 138/81 96 Room Air 06/09/17 19:58 72 18 117/70 94 Room Air 06/09/17 18:57 76 20 119/72 95 Room Air 06/09/17 18:47 79 18 112/73 95 Room Air 06/09/17 18:40 72 06/09/17 18:37 95 Room Air 06/09/17 18:37 95 Room Air 06/09/17 15:49 36.3 92 18 112/67 95 Physical Exam GENERAL: Patient is in no acute distress. HEENT: No acute trauma, normocephalic atraumatic, mucous membranes moist, no nasal congestion, no scleral icterus. NECK: No stridor, no adenopathy, no meningismus, trachea is midline. LUNGS: Clear to auscultation bilaterally, no wheeze, no rhonchi, breath sounds equal. HEART: Without murmurs gallops or rubs, regular rate and rhythm. ABDOMEN: Soft, nontender, bowel sounds positive, no hernias, no peritonitis. EXTREMITIES: No cyanosis or edema, full range of motion of all the joints without pain or difficulty, no signs for acute trauma. NEUROLOGIC: Oriented x 3, no acute motor or sensory deficits, no focal weakness. SKIN: No rash, no jaundice, no diaphoresis. Medical Decision & Procedures ER Provider Diagnostic Interpretation: Radiology results as stated below per my review and radiologist interpretation: CHEST ONE VIEW PORTABLE CLINICAL HISTORY: EVALUATE RESPIRATORY DISTRESS.DYSPNEA dyspnea COMPARISON STUDY: 09/28/2016 FINDINGS: Stable cardiomegaly. Prominent pulmonary vasculature. Diaphragms smooth. IMPRESSION: Mild congestive failure. The above report was generated using voice recognition software. It may contain grammatical, syntax or spelling errors. Electronically signed by: Theron Rodriguez M.D. 06/09/2017 6:56 PM Dictated Date/Time: 06/09/2017 6:56 PM Laboratory Results 06/09/17 18:37 Red Blood Count 4.61, Mean Corpuscular Volume 85.9, Mean Corpuscular Hemoglobin 28.6, Mean Corpuscular Hemoglobin Concent 33.3, Mean Platelet Volume 9.5, Neutrophils (%) (Auto) 64.7, Lymphocytes (%) (Auto) 24.7, Monocytes (%) (Auto) 7.9, Eosinophils (%) (Auto) 2.3, Basophils (%) (Auto) 0.2, Neutrophils # (Auto) 5.67, Lymphocytes # (Auto) 2.17, Monocytes # (Auto) 0.69, Eosinophils # (Auto) 0.20, Basophils # (Auto) 0.02 06/09/17 18:37 Test 06/09/17 18:37 White Blood Count 8.77 K/uL (4.8-10.8) Red Blood Count 4.61 M/uL (4.7-6.1) Hemoglobin 13.2 g/dL (14.0-18.0) Hematocrit 39.6 % (42-52) Mean Corpuscular Volume 85.9 fL (80-100) Mean Corpuscular Hemoglobin 28.6 pg (25-34) Mean Corpuscular Hemoglobin Concent 33.3 g/dl (32-36) Platelet Count 168 K/uL (130-400) Mean Platelet Volume 9.5 fL (7.4-10.4) Neutrophils (%) (Auto) 64.7 % Lymphocytes (%) (Auto) 24.7 % Monocytes (%) (Auto) 7.9 % Eosinophils (%) (Auto) 2.3 % Basophils (%) (Auto) 0.2 % Neutrophils # (Auto) 5.67 K/uL (1.4-6.5) Lymphocytes # (Auto) 2.17 K/uL (1.2-3.4) Monocytes # (Auto) 0.69 K/uL (0.11-0.59) Eosinophils # (Auto) 0.20 K/uL (0-0.5) Basophils # (Auto) 0.02 K/uL (0-0.2) RDW Standard Deviation 43.4 fL (36.4-46.3) RDW Coefficient of Variation 14.0 % (11.5-14.5) Immature Granulocyte % (Auto) 0.2 % Immature Granulocyte # (Auto) 0.02 K/uL (0.00-0.02) Anion Gap 8.0 mmol/L (3-11) Est Creatinine Clear Calc Drug Dose 82.8 ml/min Estimated GFR () 87.5 Estimated GFR (Non- 75.5 BUN/Creatinine Ratio 14.3 (10-20) Calcium Level 9.5 mg/dl (8.5-10.1) Magnesium Level 1.8 mg/dl (1.8-2.4) Troponin I < 0.015 ng/ml (0-0.045) Pro-B-Type Natriuretic Peptide 3270 pg/ml (0-1800) Laboratory results reviewed by me. Medications Administered Medications (Trade) Dose Ordered Sig/Anastasiya Route Start Time Stop Time Status Last Admin Dose Admin Furosemide (Lasix Inj) 40 mg NOW STAT IV 06/09/17 20:29 06/09/17 20:30 DC 06/09/17 20:38 40 MG ECG Indication: SOB/dyspnea Rate (beats per minute): 78 Rhythm: sinus rhythm Findings: 1st degree AV block, other (No ST elevation or PVC) Comparison ECG Date: 28 Sep 2016 Change: no significant change Change: Patient's electrocardiogram interpreted by me. ED Course 1812: The patient was evaluated in room A9. A complete history and physical exam was performed. 2028: Ordered Lasix Inj 40 mg IV 2056: I discussed the patient's case with Dr. Garduno of Cardiology at this time. He recommended increasing the patient's Lasix and following up on Monday. 2125: Reevaluated the patient. Discussed results and discharge instructions: He verbalized understanding and agreement. The patient is ready for discharge. Medical Decision Differential diagnosis includes but is not limited to bronchitis, pneumonia, pneumothorax, CHF, cardiac ischemia, anemia, and electrolyte imbalance. There is no leukocytosis or concerning anemia. No significant electrolyte abnormalities, no kidney failure. EKG shows a sinus rhythm, no acute ischemia. Cardiac enzyme testing 1 is not consistent with acute cardiac injury. BNP is elevated consistent with CHF/fluid overload. Chest x-ray does show some mild CHF, no pneumonia or pneumothorax. The patient was not hypoxic or toxic. He was comfortable in the room. He was given a dose of IV Lasix. I spoke to cardiology. The patient was not felt in need of a hospitalization. He will be discharged to double his Lasix for the next 2 days. He will see his doctor on Monday or Monday for a recheck. If things are worsening for him, he has agreed to return for reassessment. It appears his dyspnea secondary to some mild CHF. Medication Reconcilliation Current Medication List: was personally reviewed by me Blood Pressure Screening Patient's blood pressure: Normal blood pressure Blood pressure disposition: Did not require urgent referral Consults Time Called: 2029 Consulting Physician: Dr. Garduno - Cardiology Returned Call: [phone] We discussed the patient's case. He recommended increasing the patient's Lasix and following up on Monday. Impression Primary Impression: Congestive heart failure Additional Impression: SOB (shortness of breath) Scribe Attestation The scribe's documentation has been prepared under my direction and personally reviewed by me in its entirety. I confirm that the note above accurately reflects all work, treatment, procedures, and medical decision making performed by me. Departure Information Dispostion Home / Self-Care Referrals Dewey Guzman M.D. (PCP) Jacky Garduno M.D. Forms HOME CARE DOCUMENTATION FORM, IMPORTANT VISIT INFORMATION Patient Instructions My [facility] [employer] Additional Instructions double up the lasix for monday and monday as we discussed return for worsening symptoms return for worsening breathing see your doctor monday or monday for a recheck Problem Qualifiers Primary Impression: Congestive heart failure Congestive heart failure type: unspecified Congestive heart failure chronicity: unspecified Qualified Codes: I50.9 - Heart failure, unspecified
[2017-06-09 18:37] VITALS: O2SAT 95
[2017-06-09 18:54] LABS: BASO % 0.2 %; BASO ABS # 0.02 K/uL (0-0.2); EOS % 2.3 %; HEMATOCRIT 39.6 % (42-52); HEMOGLOBIN 13.2 g/dL (14.0-18.0); IG# 0.02 K/uL (0.00-0.02); LYMPH % 24.7 %; LYMPH ABS # 2.17 K/uL (1.2-3.4); MEAN CELL VOLUME 85.9 fL (80-100); MEAN CORPUSCULAR HEMOGLOBIN 28.6 pg (25-34); MEAN CORPUSCULAR HGB CONC 33.3 g/dl (32-36); MEAN PLATELET VOLUME 9.5 fL (7.4-10.4); MONO % 7.9 %; MONO ABS # 0.69 K/uL (0.11-0.59); NEUT % 64.7 %; NEUT ABS # 5.67 K/uL (1.4-6.5); PLATELET COUNT 168 K/uL (130-400); RED CELL DISTRIBUTION WIDTH SD 43.4 fL (36.4-46.3); WHITE BLOOD COUNT 8.77 K/uL (4.8-10.8)
--- NOTE | 2017-06-09 18:58 | DIAGNOSTIC IMAGING REPORT ---
CHEST ONE VIEW PORTABLE CLINICAL HISTORY: EVALUATE RESPIRATORY DISTRESS.DYSPNEA dyspnea COMPARISON STUDY: 09/28/2016 FINDINGS: Stable cardiomegaly. Prominent pulmonary vasculature. Diaphragms smooth. IMPRESSION: Mild congestive failure. The above report was generated using voice recognition software. It may contain grammatical, syntax or spelling errors. Electronically signed by: Theron Rodriguez M.D. 06/09/2017 6:56 PM Dictated Date/Time: 06/09/2017 6:56 PM
[2017-06-09 19:14] LABS: BLOOD UREA NITROGEN 14 mg/dl (7-18); CALCIUM 9.5 mg/dl (8.5-10.1); CARBON DIOXIDE 28 mmol/L (21-32); CREATININE 0.97 mg/dl (0.60-1.40); GLUCOSE 70 mg/dl (70-99); POTASSIUM 3.9 mmol/L (3.5-5.1); SODIUM 140 mmol/L (136-145)
[2017-06-09] MEDS ORDERED: CRG3125 PO (19:28)
[2017-06-09] MEDS ORDERED: LSN25 PO (19:28)
[2017-06-09] MEDS ORDERED: LPT40 PO (19:28)
[2017-06-09] MEDS ORDERED: LXP/20 PO (19:28)
[2017-06-09] MEDS ORDERED: FURO40TA3 PO (19:28)
[2017-06-09] MEDS ORDERED: SPR25 PO (19:28)
[2017-06-09] MEDS ORDERED: LSX40 PO (19:31)
[2017-06-09] MEDS ORDERED: FUROSEMIDE 40 MG/4 ML VIAL IV STA (20:29)
[2017-06-09 21:10] VITALS: BP 138/81; PULSE 76; O2SAT 96
== END 2017-06-09 21:46 | disposition home or self-care (01) ==
LOC: C.EDB 15:48 → C.EDA 21:46
DX: R06.02 Shortness of breath (principal); I50.9 Heart failure, unspecified; I11.0 Hypertensive heart disease with heart failure; E11.9 Type 2 diabetes mellitus without complications; R79.89 Other specified abnormal findings of blood chemistry; Z87.09 Personal history of other diseases of the respiratory system; Z79.84 Long term (current) use of oral hypoglycemic drugs; Z88.0 Allergy status to penicillin; Z88.8 Allergy status to other drugs, medicaments and biological substances; Z83.3 Family history of diabetes mellitus; Z82.49 Family history of ischemic heart disease and other diseases of the circulatory system; Z84.1 Family history of disorders of kidney and ureter

== ENCOUNTER → 2017-09-05 | Outpatient (CLI) | payer OTHER ==
[~2017-09-05] MED LIST changes: -CARV6.252 PO; +CRG3125 PO; -ESCI1TAB10 PO; -FURO20TA PO; -LPT/40 PO; +LPT40 PO; +LSN25 PO; +LSX40 PO; +LXP/20 PO; +SPR25 PO
[2017-09-05 14:03] LABS: BASO % 0.1 %; BASO ABS # 0.01 K/uL (0-0.2); EOS % 1.6 %; EOS ABS # 0.11 K/uL (0-0.5); HEMATOCRIT 38.7 % (42-52); HEMOGLOBIN 12.8 g/dL (14.0-18.0); IG# 0.01 K/uL (0.00-0.02); LYMPH % 15.4 %; LYMPH ABS # 1.04 K/uL (1.2-3.4); MEAN CORPUSCULAR HEMOGLOBIN 28.4 pg (25-34); MEAN CORPUSCULAR HGB CONC 33.1 g/dl (32-36); MEAN PLATELET VOLUME 9.5 fL (7.4-10.4); MONO % 4.7 %; MONO ABS # 0.32 K/uL (0.11-0.59); NEUT % 78.1 %; NEUT ABS # 5.25 K/uL (1.4-6.5); PLATELET COUNT 139 K/uL (130-400); RED CELL DISTRIBUTION WIDTH CV 14.1 % (11.5-14.5); RED CELL DISTRIBUTION WIDTH SD 44.2 fL (36.4-46.3); WHITE BLOOD COUNT 6.74 K/uL (4.8-10.8)
[2017-09-05 14:07] LABS: PTT PATIENT 28.6 SECONDS (21.0-31.0)
[2017-09-05 14:24] LABS: HEMOGLOBIN A1C 7.1 % (4.5-5.6)
[2017-09-05 14:32] LABS: ALBUMIN 3.5 gm/dl (3.4-5.0); ALT/SGPT 26 U/L (12-78); AST/SGOT 13 U/L (15-37); BLOOD UREA NITROGEN 13 mg/dl (7-18); CALCIUM 8.9 mg/dl (8.5-10.1); CARBON DIOXIDE 31 mmol/L (21-32); GLUCOSE 234 mg/dl (70-99); POTASSIUM 4.2 mmol/L (3.5-5.1); SODIUM 136 mmol/L (136-145)
[2017-09-05 14:35] LABS: ALKALINE PHOSPHATASE 115 U/L (45-117)
== END | disposition home or self-care (01) ==
LOC: C.LABPBG 08:42
PROVIDERS: ATTEND Internal Medicine Clinical Cardiac Electrophysiology
DX: Z01.818 Encounter for other preprocedural examination (principal); I10 Essential (primary) hypertension; E11.9 Type 2 diabetes mellitus without complications; M19.90 Unspecified osteoarthritis, unspecified site; I42.9 Cardiomyopathy, unspecified

== ENCOUNTER 2018-09-24 13:51 | Inpatient (IN) ==
[2018-09-24] MEDS ORDERED: SODIUM CHLORIDE 0.9% 500 ML IV SCH (14:15)
--- NOTE | 2018-09-24 14:25 | XRay Report ---
XR chest 1V portable CLINICAL HISTORY: Dyspnea dyspnea COMPARISON STUDY: 05/31/2018 FINDINGS: Mild stable cardiomegaly. Permanent bipolar cardiac pacemaker. Diaphragms are smooth. Chron ic interstitial change left base. IMPRESSION: Mild stable cardiomegaly. Chronic change. No acute process. The above report was generated using voice recognition software. It may contain grammatical, syntax or spelling errors. Electronically signed by: Theron Rodriguez M.D. 09/24/2018 2:23 PM
[2018-09-24 14:34] LABS: Basophils # (auto) 0.01 K/uL (0-0.2); Basophils % (auto) 0.2 %; Eosinophils # (auto) 0.07 K/uL (0-0.5); Eosinophils % (auto) 1.6 %; Hematocrit (blood only) 31.2 % (42-52); Hemoglobin 10.3 g/dL (14.0-18.0); INR 1.2 (0.9-1.1); Immature Granulocytes # (auto) 0.01 K/uL (0.00-0.02); Immature Granulocytes % (auto) 0.2 %; Lymphocytes # (auto) 0.53 K/uL (1.2-3.4); Lymphocytes % (auto) 12.5 %; Mean Corpuscular Volume 83.6 fL (80-100); Mean Platelet Volume 9.1 fL (7.4-10.4); Monocytes # (auto) 0.42 K/uL (0.11-0.59); Monocytes % (auto) 9.9 %; Neutrophils # (auto) 3.21 K/uL (1.4-6.5); Neutrophils % (auto) 75.6 %; Partial Thromboplastin Time 27.1 Seconds (21.0-31.0); Platelet Count 129 K/uL (130-400); Prothrombin Time 11.9 Seconds (9.0-12.0); RDW Coefficient of Variation 15.2 % (11.5-14.5); RDW Standard Deviation 46.8 fL (36.4-46.3); Red Blood Count 3.73 M/uL (4.7-6.1); White Blood Count 4.25 K/uL (4.8-10.8)
[2018-09-24 14:43] LABS: Alanine Aminotransferase 17 U/L (12-78); Albumin Level 3.2 gm/dl (3.4-5.0); Aspartate Aminotransferase 13 U/L (15-37); BUN Creatinine Ratio 13.5 (10-20); Blood Urea Nitrogen 19 mg/dl (7-18); Calcium 9.3 mg/dl (8.5-10.1); Carbon Dioxide 30 mmol/L (21-32); Chloride 102 mmol/L (98-107); Creatinine Clr Calc Pharmacy 49.5 ml/min; Est GFR (African American) 55.9; Est GFR (Non-African American) 48.2; Glucose 204 mg/dl (70-99); Potassium 3.9 mmol/L (3.5-5.1); Sodium 140 mmol/L (136-145)
[2018-09-24 14:48] LABS: Albumin Globulin Ratio 0.9 (0.9-2); Alkaline Phosphatase 124 U/L (45-117); Bilirubin,Total 2.7 mg/dl (0.2-1); Globulin 3.5 gm/dl (2.5-4.0); Total Protein 6.7 gm/dl (6.4-8.2); Troponin I < 0.015 ng/ml (0-0.045)
[2018-09-24 15:05] LABS: Influenza A virus by PCR Neg for Influ A (Neg); Influenza B virus by PCR Neg for Influ B (Neg)
[2018-09-24] MEDS ORDERED: LEVOFLOXACIN/D5W 750 MG/150 ML BAG IV STA (16:31)
[2018-09-24] MEDS ORDERED: ALBUTEROL 0.083% NEBU SOLN 3 ML VIAL NEB STA (16:39)
--- NOTE | 2018-09-24 17:23 | History & Physical Report ---
Date of Service September 24, 2018 Assessment & Plan (1) Asthmatic bronchitis: Obtain sputum culture. Administer intravenous Levaquin and Solu-Medrol. Nebulizer treatments Present on Admission?: Yes (2) Hypoxia: Oxygen by nasal cannula to maintain saturation greater than 90%. Wean off as tolerated Present on Admission?: Yes (3) Chronic systolic CHF (congestive heart failure): Currently stable. Continue current medical management (4) Systolic CHF, chronic: (5) Cardiomyopathy, nonischemic: Currently stable. Continue current medical management (6) DM2 (diabetes mellitus, type 2): Diabetic diet. Sliding scale insulin coverage. Continue glimepiride. Hold metformin History of Present Illness Chief Complaint: Productive cough, wheezing, shortness of breath Primary Care Provider: Barbara Calles, 78-year-old male with a 2 to 3-day history of productive cough of yellow phlegm associated with shortness of breath and wheezing. He presented to the ED for evaluation. Oxygen saturation was as low as 88% on room air. Chest x-ray is clear. He has asthmatic bronchitis associated with hypoxia. He was started on intravenous Levaquin in the ED and given respiratory treatments. He does meet admission criteria. He is admitted for further evaluation and treatment. His chronic systolic CHF is currently stable. Allergies Allergy/AdvReac Type Severity Reaction Status Date / Time Penicillins Allergy Mild 35 YRS AGO Verified 09/24/18 14:56 DEVELOPED RASH sertraline Allergy Unknown DID NOT Verified 09/24/18 14:56 TOLERATE MED Home Medications Home Medications Medication Instructions Recorded Confirmed Type atorvastatin [Lipitor] 40 mg PO QPM 02/13/18 09/24/18 History carvedilol [Coreg] 3.125 mg PO BID 02/13/18 09/24/18 History cholecalciferol (vitamin D3) 5,000 unit PO QAM 02/13/18 09/24/18 History escitalopram oxalate [Lexapro] 20 mg PO QAM 02/13/18 09/24/18 History furosemide [Lasix] 40 mg PO QAM 02/13/18 09/24/18 History lisinopril [Zestril] 2.5 mg PO QPM 02/13/18 09/24/18 History finasteride 5 mg PO DAILY 04/27/18 09/24/18 History alprazolam 1 mg PO TID PRN #14 tab 05/20/18 09/24/18 Rx fluoxetine 10 mg PO QAM 05/20/18 09/24/18 History acetaminophen [Pain Reliever] 1,000 mg PO Q8 PRN 06/01/18 09/24/18 History cyanocobalamin (vit B-12) 1,000 1,000 mcg PO DAILY #90 tab 09/18/18 09/24/18 History mcg tablet docusate sodium 100 mg tablet 100 mg PO DAILY tab 09/18/18 09/24/18 History ferrous sulfate 325 mg (65 mg 325 mg PO QAM tab 09/18/18 09/24/18 History iron) tablet metformin ER 500 mg 500 mg PO QAM #360 tab 09/18/18 09/24/18 History tablet,extended release 24 hr eszopiclone 3 mg PO HS PRN 09/24/18 09/24/18 History melatonin 0 mg PO HS PRN 09/24/18 09/24/18 History [id number] 2 tab PO Q6H 09/24/18 09/24/18 History [Cold Multi-Symptom] Past Med/Surg History Medical History DM2 (diabetes mellitus, type 2) Hypoxia (Acute) Asthmatic bronchitis (Acute) Vitamin D deficiency (Acute) Vitamin B12 deficiency (Acute) Tubular adenoma of colon (Acute) Psoriasis (Acute) Obesity, Class I, BMI 30-34.9 (Acute) Non-sustained ventricular tachycardia (Acute) Mild sleep apnea (Acute) Insomnia (Acute) Hepatic steatosis (Acute) Gastroesophageal reflux disease (Acute) Erectile dysfunction (Acute) Dyslipidemia (Acute) Diabetic retinopathy, nonproliferative (Acute) Depression with anxiety (Acute) Chronic osteoarthritis (Acute) Carotid artery plaque (Acute) Cardiomyopathy, nonischemic (Acute) BPH with obstruction/lower urinary tract symptoms (Acute) Arteriosclerotic coronary artery disease (Acute) Depression DM II (diabetes mellitus, type II), controlled Systolic CHF, chronic (Chronic) HLD (hyperlipidemia) HTN (hypertension) Cardiomyopathy Osteoarthritis of left knee Dyspnea (Inactive) Diabetes mellitus, type 2 NIDDM Hyperlipidemia Hypertension ICD (implantable cardioverter-defibrillator) in place Kidney stones Osteoarthritis Pacemaker 4-5 months ago - [facility] - chf/arrhythmia - unsure of type? - last checked 1 month ago - follows w/ dr. leticia Ramos historian Surgical History S/P total knee arthroplasty History of Achilles tendon repair LEFT History of cardiac cath x3 [facility] - most recent beginning of 2018 r/t failed stress tests - no stents/angioplasty 2017 - abn stress test - no stents/angioplasty 2016 - abd stress test - no stents/angioplasty History of cataract surgery B/L History of colonoscopy History of esophagogastroduodenoscopy (EGD) History of lithotripsy History of total knee replacement RT Social History Preferred Language: Bengali Communication Ability: Effective Visual Impairment: No Limitations Beliefs That Will Affect Care: None marital status: Current Living Situation: Spouse Feels Safe at Home: Yes Smoking Status: Never smoker Second Hand Exposure: No Hx Alcohol Use: Yes Alcohol type: beer Hx Substance Use: No Review of Systems Review of Systems: All systems reviewed & are unremarkable except as noted in HPI & below Respiratory: + cough, + dyspnea, + sputum production and + wheezing Physical Exam Constitutional: WD/WN, vitals as above Eyes: PERRL, conjunctivae normal, anicteric sclerae ENMT: external ear and nose normal, oropharynx normal Neck: trachea midline, no thyromegaly Respiratory: Midline rhonchi. Bilateral and expiratory wheezes. No dullness to percussion. No inspiratory rales Cardiovascular: Rate/Rhythm: regular rate and regular rhythm Heart Sounds: normal S1, normal S2 and + murmur (Grade 1/6 systolic murmur at the apex) Gastrointestinal (Abdomen): normal bowel sounds, soft, nontender, no hepatosplenomegaly Musculoskeletal: no cyanosis or clubbing, extremities motor strength 5/5 Skin: no rashes, warm and dry Neurologic: CN's II-XI intact bilaterally and moves all extremities; no focal motor deficits Results & Data Vital Signs (Past 12 Hours) Vital Signs Temp Pulse Pulse Resp BP BP Pulse Ox 09/24/18 16:10 75 20 90 09/24/18 16:01 75 17 100/51 L 90 09/24/18 16:00 77 21 93 09/24/18 15:50 81 19 94 09/24/18 15:48 96 09/24/18 15:40 98 09/24/18 15:30 70 21 113/65 95 09/24/18 15:20 71 21 96 09/24/18 15:10 70 21 97 09/24/18 15:01 72 21 112/66 97 09/24/18 15:00 73 21 97 09/24/18 14:50 73 21 97 09/24/18 14:48 74 16 113/70 96 09/24/18 14:47 73 26 H 113/70 97 09/24/18 14:40 71 20 96 09/24/18 14:30 71 21 96 09/24/18 14:21 80 21 96 09/24/18 14:10 94 09/24/18 13:53 36.9 C 81 20 91/40 L 89 L Laboratory Results 09/24/18 14:10 09/24/18 14:10
[2018-09-24] MEDS ORDERED: ACETAMINOPHEN 325 MG TAB ONE (18:29)
[2018-09-24] MEDS ORDERED: ONDANSETRON INJ 2 MG/ML 2 ML VIAL IV PRN (18:32)
[2018-09-24] MEDS ORDERED: ACETAMINOPHEN 325 MG TAB PO PRN (18:32)
[2018-09-24] MEDS ORDERED: ALUMINUM/MAGNESIUM SUSP 30 ML UDC PO PRN (18:32)
[2018-09-24] MEDS ORDERED: ALPRAZolam 0.5 MG TABLET PO PRN (18:32)
[2018-09-24] MEDS ORDERED: ALBUT/IPRATROP 3MG/0.5MG NEB 3 ML VIAL NEB PRN (18:42)
[2018-09-24] MEDS: ALBUT/IPRATROP 3MG/0.5MG NEB 3 ML VIAL NEB SCH (19:24)
[2018-09-24 19:50] LABS: Appearance Urine Clear (Clear); Bacteria Urine Automated Negative (Negative); Bilirubin Urine Negative (Negative); Blood Urine 1+ (Negative); Color Urine Yellow; Epithelial Cell Urine Auto 0-5 /lpf (0-5); Glucose Urine UA Negative (Negative); Ketones Urine Negative (Negative); Leukocyte Esterase Urine Negative (Negative); Nitrite Urine Negative (Negative); Protein Urine Negative (Negative); Specific Gravity Urine 1.014 (1.000-1.030); Urobilinogen Urine Negative (Negative); WBC Urine Automated 0 /hpf (0-5)
--- NOTE | 2018-09-24 20:12 | Emergency Department Note ---
Entered by Siomara Feliciano acting as a scribe for Vidal Asif DO History of Present Illness General Chief complaint: Cough Stated complaint: COUGH, HEADACHE, SOB Source: patient and RN notes reviewed Limitations: no limitations History of Present Illness Provider complaint: cough Onset (ago): day(s) 3 Location: chest Associated symptoms: + denies other symptoms (-pain with urination), + shortness of breath and + other (+runny nose, +dizziness); no fever/chills and no nausea/vomiting The patient is a 78 year old male who presents to the Emergency Room with complaints of a cough that began 3 days prior to arrival. The patient states that his cough is productive sometimes and states that he brings up yellow sputum. The patient states that he has a runny nose, shortness of breath, and dizziness. The patient denies any fevers, chills, nausea, vomiting, diarrhea, or pain with urination. Per nursing staff, the patient was 88% on room air in triage. The patient denies being on oxygen normally. The patient states that he takes baby Aspirin. The patient states that his blood pressure is normally 90/60. The patient states that he has a history of CHF. Home Medications Home Medications Medication Instructions Recorded Confirmed Type atorvastatin [Lipitor] 40 mg PO QPM 02/13/18 09/24/18 History carvedilol [Coreg] 3.125 mg PO BID 02/13/18 09/24/18 History cholecalciferol (vitamin D3) 5,000 unit PO QAM 02/13/18 09/24/18 History escitalopram oxalate [Lexapro] 20 mg PO QAM 02/13/18 09/24/18 History furosemide [Lasix] 40 mg PO QAM 02/13/18 09/24/18 History lisinopril [Zestril] 2.5 mg PO QPM 02/13/18 09/24/18 History finasteride 5 mg PO DAILY 04/27/18 09/24/18 History alprazolam 1 mg PO TID PRN #14 tab 05/20/18 09/24/18 Rx fluoxetine 10 mg PO QAM 05/20/18 09/24/18 History acetaminophen [Pain Reliever] 1,000 mg PO Q8 PRN 06/01/18 09/24/18 History cyanocobalamin (vit B-12) 1,000 1,000 mcg PO DAILY #90 tab 09/18/18 09/24/18 History mcg tablet docusate sodium 100 mg tablet 100 mg PO DAILY tab 09/18/18 09/24/18 History ferrous sulfate 325 mg (65 mg 325 mg PO QAM tab 09/18/18 09/24/18 History iron) tablet metformin ER 500 mg 500 mg PO QAM #360 tab 09/18/18 09/24/18 History tablet,extended release 24 hr eszopiclone 3 mg PO HS PRN 09/24/18 09/24/18 History melatonin 0 mg PO HS PRN 09/24/18 09/24/18 History khnviaixetqgh-KZ-ovzuounkcgdfd 2 tab PO Q6H 09/24/18 09/24/18 History [Cold Multi-Symptom] Allergies Allergy/AdvReac Type Severity Reaction Status Date / Time Penicillins Allergy Mild 35 YRS AGO Verified 09/24/18 14:56 DEVELOPED RASH sertraline Allergy Unknown DID NOT Verified 09/24/18 14:56 TOLERATE MED Past Med/Surg History Medical History DM2 (diabetes mellitus, type 2) Hypoxia (Acute) Asthmatic bronchitis (Acute) Vitamin D deficiency (Acute) Vitamin B12 deficiency (Acute) Tubular adenoma of colon (Acute) Psoriasis (Acute) Obesity, Class I, BMI 30-34.9 (Acute) Non-sustained ventricular tachycardia (Acute) Mild sleep apnea (Acute) Insomnia (Acute) Hepatic steatosis (Acute) Gastroesophageal reflux disease (Acute) Erectile dysfunction (Acute) Dyslipidemia (Acute) Diabetic retinopathy, nonproliferative (Acute) Depression with anxiety (Acute) Chronic osteoarthritis (Acute) Carotid artery plaque (Acute) Cardiomyopathy, nonischemic (Acute) BPH with obstruction/lower urinary tract symptoms (Acute) Arteriosclerotic coronary artery disease (Acute) Depression DM II (diabetes mellitus, type II), controlled Systolic CHF, chronic (Chronic) HLD (hyperlipidemia) HTN (hypertension) Cardiomyopathy Osteoarthritis of left knee Dyspnea (Inactive) Diabetes mellitus, type 2 NIDDM Hyperlipidemia Hypertension ICD (implantable cardioverter-defibrillator) in place Kidney stones Osteoarthritis Pacemaker 4-5 months ago - [facility] - chf/arrhythmia - unsure of type? - last checked 1 month ago - follows w/ dr. leticia Ramos historian Surgical History S/P total knee arthroplasty History of Achilles tendon repair LEFT History of cardiac cath x3 - all at [facility] - most recent beginning of 2018 r/t failed stress tests - no stents/angioplasty 2017 - abn stress test - no stents/angioplasty 2016 - abd stress test - no stents/angioplasty History of cataract surgery B/L History of colonoscopy History of esophagogastroduodenoscopy (EGD) History of lithotripsy History of total knee replacement RT Social History Preferred Language: Macedonian Communication Ability: Effective Visual Impairment: No Limitations Beliefs That Will Affect Care: None marital status: Current Living Situation: Spouse Other Information That Helps Us Care for You: No Feels Safe at Home: Yes Smoking Status: Former smoker Do You Dip or Chew Tobacco: No Second Hand Exposure: No Tobacco Cessation Education Requested by Patient: No Hx Alcohol Use: No Hx Substance Use: No Review of Systems See HPI for pertinent positives & negatives. and A total of 10 systems reviewed and were otherwise negative Physical Exam Vital Signs Vital Signs - 24 hr 09/24/18 13:53 09/24/18 14:10 09/24/18 14:21 Temperature 36.9 C Temperature Source Oral Sepsis Recent Fever Within 48 Hours No Sepsis Action Taken by Nursing No Action Required Pulse Rate 81 80 Pulse Rate [Apical] Pulse Rate from SpO2 Sensor 79 Respiratory Rate 20 21 Blood Pressure 91/40 L Blood Pressure [Right Arm] Blood Pressure Mean 57 Blood Pressure Mean [Right Arm] Blood Pressure Position Sitting Pulse Oximetry 89 L 94 96 Oxygen Delivery Method Room Air Nasal Cannula Oxygen Flow Rate 3 09/24/18 14:30 09/24/18 14:40 09/24/18 14:47 Temperature Temperature Source Sepsis Recent Fever Within 48 Hours Sepsis Action Taken by Nursing Pulse Rate 71 71 73 Pulse Rate [Apical] Pulse Rate from SpO2 Sensor 72 72 73 Respiratory Rate 21 20 26 H Blood Pressure 113/70 Blood Pressure [Right Arm] Blood Pressure Mean 84 Blood Pressure Mean [Right Arm] Blood Pressure Position Pulse Oximetry 96 96 97 Oxygen Delivery Method Oxygen Flow Rate 09/24/18 14:48 09/24/18 14:50 09/24/18 15:00 Temperature Temperature Source Sepsis Recent Fever Within 48 Hours Sepsis Action Taken by Nursing Pulse Rate 73 73 Pulse Rate [Apical] 74 Pulse Rate from SpO2 Sensor 73 74 Respiratory Rate 16 21 21 Blood Pressure Blood Pressure [Right Arm] 113/70 Blood Pressure Mean Blood Pressure Mean [Right Arm] 84 Blood Pressure Position Pulse Oximetry 96 97 97 Oxygen Delivery Method Room Air Oxygen Flow Rate 09/24/18 15:01 09/24/18 15:10 09/24/18 15:20 Temperature Temperature Source Sepsis Recent Fever Within 48 Hours Sepsis Action Taken by Nursing Pulse Rate 72 70 71 Pulse Rate [Apical] Pulse Rate from SpO2 Sensor 72 71 71 Respiratory Rate 21 21 21 Blood Pressure 112/66 Blood Pressure [Right Arm] Blood Pressure Mean 81 Blood Pressure Mean [Right Arm] Blood Pressure Position Pulse Oximetry 97 97 96 Oxygen Delivery Method Oxygen Flow Rate 09/24/18 15:30 09/24/18 15:40 09/24/18 15:48 Temperature Temperature Source Sepsis Recent Fever Within 48 Hours Sepsis Action Taken by Nursing Pulse Rate 70 Pulse Rate [Apical] Pulse Rate from SpO2 Sensor 71 76 Respiratory Rate 21 Blood Pressure 113/65 Blood Pressure [Right Arm] Blood Pressure Mean 81 Blood Pressure Mean [Right Arm] Blood Pressure Position Pulse Oximetry 95 98 96 Oxygen Delivery Method Room Air Oxygen Flow Rate 09/24/18 15:50 09/24/18 16:00 09/24/18 16:01 Temperature Temperature Source Sepsis Recent Fever Within 48 Hours Sepsis Action Taken by Nursing Pulse Rate 81 77 75 Pulse Rate [Apical] Pulse Rate from SpO2 Sensor 81 77 75 Respiratory Rate 19 21 17 Blood Pressure 100/51 L Blood Pressure [Right Arm] Blood Pressure Mean 67 Blood Pressure Mean [Right Arm] Blood Pressure Position Pulse Oximetry 94 93 90 Oxygen Delivery Method Room Air Room Air Oxygen Flow Rate 09/24/18 16:10 09/24/18 16:20 09/24/18 16:30 Temperature Temperature Source Sepsis Recent Fever Within 48 Hours Sepsis Action Taken by Nursing Pulse Rate 75 74 74 Pulse Rate [Apical] Pulse Rate from SpO2 Sensor 75 75 73 Respiratory Rate 20 21 23 Blood Pressure Blood Pressure [Right Arm] Blood Pressure Mean Blood Pressure Mean [Right Arm] Blood Pressure Position Pulse Oximetry 90 91 91 Oxygen Delivery Method Oxygen Flow Rate 09/24/18 16:31 09/24/18 16:40 09/24/18 16:50 Temperature Temperature Source Sepsis Recent Fever Within 48 Hours Sepsis Action Taken by Nursing Pulse Rate 73 73 72 Pulse Rate [Apical] Pulse Rate from SpO2 Sensor 73 74 73 Respiratory Rate 18 23 18 Blood Pressure 99/62 L Blood Pressure [Right Arm] Blood Pressure Mean 74 Blood Pressure Mean [Right Arm] Blood Pressure Position Pulse Oximetry 89 L 96 97 Oxygen Delivery Method Room Air Nasal Cannula Oxygen Flow Rate 2 09/24/18 17:00 09/24/18 17:01 09/24/18 17:02 Temperature Temperature Source Sepsis Recent Fever Within 48 Hours Sepsis Action Taken by Nursing Pulse Rate 70 71 71 Pulse Rate [Apical] Pulse Rate from SpO2 Sensor 70 70 71 Respiratory Rate 17 18 20 Blood Pressure 99/64 L Blood Pressure [Right Arm] Blood Pressure Mean 75 Blood Pressure Mean [Right Arm] Blood Pressure Position Pulse Oximetry 95 100 99 Oxygen Delivery Method Oxygen Flow Rate 09/24/18 17:10 09/24/18 17:20 Temperature Temperature Source Sepsis Recent Fever Within 48 Hours Sepsis Action Taken by Nursing Pulse Rate 69 73 Pulse Rate [Apical] Pulse Rate from SpO2 Sensor 69 73 Respiratory Rate 17 17 Blood Pressure Blood Pressure [Right Arm] Blood Pressure Mean Blood Pressure Mean [Right Arm] Blood Pressure Position Pulse Oximetry 98 98 Oxygen Delivery Method Oxygen Flow Rate GENERAL: alert, disheveled, non-toxic, sitting up in bed. EYE EXAM: normal conjunctiva. OROPHARYNX: no exudate, no erythema, lips, buccal mucosa, and tongue normal and mucous membranes are moist. NECK: supple, no nuchal rigidity, no adenopathy, non-tender. LUNGS: Coarse breath sounds at bilateral bases. HEART: no murmurs, S1 normal and S2 normal. CHEST: Pacer located in the left upper chest wall. ABDOMEN: abdomen soft, non-tender, normo-active bowel sounds, no masses, no re bound or guarding. BACK: Back is symmetrical on inspection and there is no deformity, no midline te nderness, no CVA tenderness. SKIN: no rashes and no bruising. UPPER EXTREMITIES: upper extremities are grossly normal. LOWER EXTREMITIES: Calve muscles are bilateral in size. NEURO EXAM: Normal sensorium, cranial nerves II-XII intact, normal speech, no weakness of arms, no weakness of legs. Course 1404: The patient was evaluated in room B9, and a complete history and physical examination were performed. 1600: I checked on the patient and updated him on his results. 1630: I discussed the [facility] will [facility] the patient for further hospitalization. Consultations Consultation #1: Dr. Griffin [facility] Hospitalist Time: 16:30 Administered Medications Albuterol (Duoneb) 3 ml NEB QIDR ELIANA Stop: 10/24/18 19:59 Last Admin: 09/24/18 19:24 Dose: 3 ml Documented by: [id number] Discontinued Medications Acetaminophen (Tylenol) Confirm Administered Dose 650 mg .ROUTE .STK-MED ONE Stop: 09/24/18 18:30 Last Admin: 09/24/18 18:34 Dose: 650 mg Documented by: [id number] Albuterol (Ventolin 0.083% 2.5mg/3ml) 2.5 mg NEB NOW STA Stop: 09/24/18 16:40 Last Admin: 09/24/18 16:57 Dose: 2.5 mg Documented by: [id number] Sodium Chloride (Nss) 500 mls @ 999 mls/hr IV .Q31M ELIANA Stop: 09/24/18 14:45 Last Infusion: 09/24/18 15:04 Dose: 0 mls/hr Documented by: [id number] Admin: 09/24/18 14:35 Dose: 999 mls/hr Documented by: [id number] Levofloxacin/Dextrose (Levaquin/D5w) 750 mg in 150 mls @ 100 mls/hr IV ONE STA Stop: 09/24/18 18:00 Last Infusion: 09/24/18 19:10 Dose: 0 mls/hr Documented by: [id number] Infusion: 09/24/18 18:55 Dose: 0 mls/hr Documented by: [id number] Admin: 09/24/18 16:59 Dose: 100 mls/hr Documented by: [id number] Medical Decision Making Differential Diagnosis Differential diagnosis includes etiologies such as benign positional vertigo, dehydration, hypovolemia, anemia, tumor, infection, hypoglycemia, electrolyte a bnormalities, cardiac sources, intracerebral event, toxicologic, neurologic, as well as others were entertained. Medical Records Attestation: I reviewed the patient's medical records. Home Medications Current Medication List: was personally reviewed by me Laboratory Data Attestation: I reviewed the patient's lab results. Result diagrams: 09/24/18 14:10 09/24/18 14:10 Lab Results 09/24/18 09/24/18 09/24/18 Range/Units 14:10 14:10 14:10 WBC 4.25 L (4.8-10.8) K/uL RBC 3.73 L (4.7-6.1) M/uL Hgb 10.3 L (14.0-18.0) g/dL Hct 31.2 L (42-52) % MCV 83.6 (80-100) fL MCH 27.6 (25-34) pg MCHC 33.0 (32-36) g/dL RDW Std Deviation 46.8 H (36.4-46.3) fL RDW Coeff of Skyler 15.2 H (11.5-14.5) % Plt Count 129 L (130-400) K/uL MPV 9.1 (7.4-10.4) fL Immature Gran % (Auto) 0.2 % Neut % (Auto) 75.6 % Lymph % (Auto) 12.5 % Martin % (Auto) 9.9 % Eos % (Auto) 1.6 % Baso % (Auto) 0.2 % Immature Gran # (Auto) 0.01 (0.00-0.02) K/uL Neut # (Auto) 3.21 (1.4-6.5) K/uL Lymph # (Auto) 0.53 L (1.2-3.4) K/uL Martin # (Auto) 0.42 (0.11-0.59) K/uL Eos # (Auto) 0.07 (0-0.5) K/uL Baso # (Auto) 0.01 (0-0.2) K/uL PT 11.9 (9.0-12.0) Seconds INR 1.2 H (0.9-1.1) APTT 27.1 (21.0-31.0) Seconds PTT Ratio 1.0 Sodium 140 (136-145) mmol/L Potassium 3.9 (3.5-5.1) mmol/L Chloride 102 (98-107) mmol/L Carbon Dioxide 30 (21-32) mmol/L Anion Gap 8.0 (3-11) BUN 19 H (7-18) mg/dl Creatinine 1.39 (0.6-1.4) mg/dl Est Cr Clr Drug Dosing 49.5 ml/min Est GFR ( Amer) 55.9 Est GFR (Non-Af Amer) 48.2 BUN/Creatinine Ratio 13.5 (10-20) Glucose 204 H (70-99) mg/dl POC Lactic Acid Buddy (0.90-1.70) mmol/L Calcium 9.3 (8.5-10.1) mg/dl Total Bilirubin 2.7 H (0.2-1) mg/dl AST 13 L (15-37) U/L ALT 17 (12-78) U/L Alkaline Phosphatase 124 H (45-117) U/L Troponin I < 0.015 (0-0.045) ng/ml Total Protein 6.7 (6.4-8.2) gm/dl Albumin 3.2 L (3.4-5.0) gm/dl Globulin 3.5 (2.5-4.0) gm/dl Albumin/Globulin Ratio 0.9 (0.9-2) Influenza Type A (PCR) (Neg) Influenza Type B (PCR) (Neg) 09/24/18 09/24/18 Range/Units 14:18 14:19 WBC (4.8-10.8) K/uL RBC (4.7-6.1) M/uL Hgb (14.0-18.0) g/dL Hct (42-52) % MCV (80-100) fL MCH (25-34) pg MCHC (32-36) g/dL RDW Std Deviation (36.4-46.3) fL RDW Coeff of Skyler (11.5-14.5) % Plt Count (130-400) K/uL MPV (7.4-10.4) fL Immature Gran % (Auto) % Neut % (Auto) % Lymph % (Auto) % Martin % (Auto) % Eos % (Auto) % Baso % (Auto) % Immature Gran # (Auto) (0.00-0.02) K/uL Neut # (Auto) (1.4-6.5) K/uL Lymph # (Auto) (1.2-3.4) K/uL Martin # (Auto) (0.11-0.59) K/uL Eos # (Auto) (0-0.5) K/uL Baso # (Auto) (0-0.2) K/uL PT (9.0-12.0) Seconds INR (0.9-1.1) APTT (21.0-31.0) Seconds PTT Ratio Sodium (136-145) mmol/L Potassium (3.5-5.1) mmol/L Chloride (98-107) mmol/L Carbon Dioxide (21-32) mmol/L Anion Gap (3-11) BUN (7-18) mg/dl Creatinine (0.6-1.4) mg/dl Est Cr Clr Drug Dosing ml/min Est GFR ( Amer) Est GFR (Non-Af Amer) BUN/Creatinine Ratio (10-20) Glucose (70-99) mg/dl POC Lactic Acid Buddy 1.52 (0.90-1.70) mmol/L Calcium (8.5-10.1) mg/dl Total Bilirubin (0.2-1) mg/dl AST (15-37) U/L ALT (12-78) U/L Alkaline Phosphatase (45-117) U/L Troponin I (0-0.045) ng/ml Total Protein (6.4-8.2) gm/dl Albumin (3.4-5.0) gm/dl Globulin (2.5-4.0) gm/dl Albumin/Globulin Ratio (0.9-2) Influenza Type A (PCR) Neg for Influ A (Neg) Influenza Type B (PCR) Neg for Influ B (Neg) Imaging Data Radiologist's Impression: Radiology results as stated below per my review and the radiologist's interpretation: XR chest 1V portable CLINICAL HISTORY: Dyspnea dyspnea COMPARISON STUDY: 05/31/2018 FINDINGS: Mild stable cardiomegaly. Permanent bipolar cardiac pacemaker. Diaphragms are smooth. Chronic interstitial change left base. IMPRESSION: Mild stable cardiomegaly. Chronic change. No acute process. The above report was generated using voice recognition software. It may contain grammatical, syntax or spelling errors. Electronically signed by: Theron Rodriguez M.D. 09/24/2018 2:23 PM ECG Data Attestation: I personally reviewed and interpreted this ECG as follows: Indication: other (+dizziness ) Rate (beats per minute): 71 Rhythm: sinus rhythm Findings: + other (T wave flattening in the high lateral and TWI leads ), + T- wave inversion (anterior and lateral) and + left axis deviation Comparison ECG Date: from (04/16/2018) Change: the following changes noted (lateral and TWI new ) Blood Pressure Blood Pressure Findings: Low blood pressure MDM Narrative Patient is a 78-year-old male who presents the ER for cough runny nose and a mild headache which is been present for the past 3 days associated with yellow productive sputum. Patient has a past medical history of a cardiomyopathy with an EF of 20 to 25% and a type II diabetic. He denies any history of asthma or COPD. Upon presentation is found to be hypoxic at 87 to 91% on room air. Afebrile. Systolic blood pressures were 90. Labs were obtained showed a leukopenia at 4 with no significant anemia. INR was at 1.2. BMP with slightly elevated BUN. T bili was slightly elevated at 2.7 which is in the range of previous bilirubins for him. No significant transaminitis. Troponin was negative. UA was unremarkable. Influenza was negative. Patient was given IV fluids. He has no true chest pain. Doubt PE do favor that this is most likely bronchitis as history is consistent with infectious etiology. Patient was given a dose of Levaquin neb treatment IV fluids and updated bedside. Discussed with the hospitalist for observation. Impression & Plan Bronchitis, Hypoxia, Acute hypotension Discharge Plan Visit Data *Final* Discharge Date/Time: 09/24/18 17:57 Chief Complaint: Cough Stated Complaint: COUGH, HEADACHE, SOB ED Provider: Vidal Asif Discharge Problem: Bronchitis, Hypoxia, Acute hypotension Patient Disposition: Admitted As Inpatient Discharge Instructions Interventions: ED Discharge Assessment Last Done: 09/24/18 17:57 The scribe's documentation has been prepared under my direction and personally reviewed by me in its entirety. I confirm that the note above accurately reflects all work, treatment, procedures, and medical decision making performed by me.
[2018-09-24] MEDS: INSULIN ASPART 100 UNITS/ML 3 ML PEN SC SCH (20:31)
[2018-09-24] MEDS: methylPREDNISolone 40 MG in SYRINGE 0 ML IV SCH (20:32)
[2018-09-24] MEDS: ENOXAPARIN INJ 40 MG/0.4 ML SYR SQ SCH (20:32)
[2018-09-24] MEDS: CARVEDILOL 3.125 MG TAB PO SCH (20:34)
[2018-09-24] MEDS: ATORVASTATIN 40 MG TAB PO SCH (20:34)
[2018-09-24] MEDS: LISINOPRIL 2.5 MG TAB PO SCH (20:34)
[2018-09-24] MEDS ORDERED: LORATADINE 10 MG TAB PO ONE (21:09)
[2018-09-24] MEDS: guaiFENesin 600 MG TABCR PO SCH (21:34)
[2018-09-24] MEDS: ESZOPICLONE 3 MG TAB PO PRN (21:34)
[2018-09-25] MEDS: methylPREDNISolone 40 MG in SYRINGE 0 ML IV SCH (03:23)
[2018-09-25] MEDS: ALBUT/IPRATROP 3MG/0.5MG NEB 3 ML VIAL NEB SCH ×4 (06:57→18:54)
[2018-09-25] MEDS: guaiFENesin 600 MG TABCR PO SCH ×2 (08:06→21:03)
[2018-09-25] MEDS: FLUOXETINE HCL 10 MG CAP PO SCH (08:06)
[2018-09-25] MEDS: FUROSEMIDE 40 MG TAB PO SCH (08:07)
[2018-09-25] MEDS: CHOLECALCIFEROL 1,000 UNITS TAB PO SCH (08:07)
[2018-09-25] MEDS: CYANOCOBALAMIN 500 MCG TABLET (VITAMIN B-12) PO SCH (08:07)
[2018-09-25] MEDS: FINASTERIDE 5 MG TAB PO SCH (08:07)
[2018-09-25] MEDS: ESCITALOPRAM OXALATE 20 MG TAB PO SCH (08:07)
[2018-09-25] MEDS: CARVEDILOL 3.125 MG TAB PO SCH (08:07)
[2018-09-25] MEDS: DOCUSATE SODIUM 100 MG CAP PO SCH (08:07)
[2018-09-25] MEDS: FERROUS SULFATE 325 MG TAB PO SCH (08:07)
[2018-09-25] MEDS: INSULIN ASPART 100 UNITS/ML 3 ML PEN SC SCH ×4 (08:10→21:01)
[2018-09-25] MEDS: INSULIN GLARGINE SOLOSTAR 100 UNITS/ML 3 ML PEN SC SCH ×2 (08:14→21:00)
--- NOTE | 2018-09-25 10:04 | Hospitalist Progress Note ---
Date of Service September 25, 2018 Assessment & Plan (1) Asthmatic bronchitis: sputum culture pending no wheezing on exam today change to Prednisone today, stop Solu Medrol change Levaquin to PO (2) Hypoxia: Oxygen by nasal cannula to maintain saturation greater than 90%. Wean off as tolerated still having some desaturations off oxygen, dropped to 80's on room air with exertion try to wean off again tomorrow (3) Chronic systolic CHF (congestive heart failure): Currently stable. Continue current medical management examines euvolemic (4) Cardiomyopathy, nonischemic: Currently stable continue Lisinopril, Lasix 40mg, Coreg (hold temporarily due to asthmatic bronchitis) (5) DM2 (diabetes mellitus, type 2): now with hyperglycemia due to steroids started on Lantus 15 units q12 but behind give additional 15 units at noon tighten novolog coverage transfer to medical floor he is independent in the room, no plans for therapy evals Subjective patient feeling well, breathing easier, asked if he could go home discussed that he was still requiring oxygen RN took oxygen off this morning and he desaturated to 80's on room air no wheezing on exam, minimal cough, bringing up a little brown sputum reviewed labs and imaging since admission sugars really high due to steroids started on Lantus 15 q12 this morning but sugars still high around noon give extra Lantus, tightened coverage Review of Systems Review of Systems: All systems reviewed & are unremarkable except as noted in HPI & below Respiratory: + cough, + dyspnea, + dyspnea on exertion and + sputum production Cardiovascular: no chest pain Gastrointestinal: + vomiting (last night, one episode, no further); no abdominal pain, no nausea, no constipation and no diarrhea/loose stools Physical Exam Constitutional: WD/WN, vitals as above Eyes: PERRL, conjunctivae normal, anicteric sclerae ENMT: external ear and nose normal, oropharynx normal Neck: trachea midline, no thyromegaly Respiratory: normal respiratory effort, lungs clear to auscultation (no wheezing in all lung brito) Cardiovascular: RRR, no murmur, no edema Gastrointestinal (Abdomen): normal bowel sounds, soft, nontender, no hepatosplenomegaly Musculoskeletal: no cyanosis or clubbing, extremities motor strength 5/5 Skin: no rashes, warm and dry Neurologic: patellar DTR's 2+ bilat, sensation intact and PERRL, EOMI, accommodation nl, no face palsy, no dysarthria Psychiatric: A+Ox3, euthymic affect Lymphatic: no cervical or axillary lymphadenopathy Results & Data Vital Signs (Past 12 Hours) Vital Signs Temp Pulse Pulse Pulse Resp BP Pulse Ox 09/25/18 07:02 36.8 C 83 18 94/54 L 98 09/25/18 06:57 88 18 92 09/25/18 03:32 74 18 94 09/25/18 03:14 36.9 C 81 18 95/59 L 90 09/25/18 00:00 94 H 09/24/18 23:28 37.0 C 85 18 92/49 L 90 Laboratory Results Laboratory Results - last 24 hr 09/24/18 09/24/18 09/24/18 14:10 14:10 14:10 WBC 4.25 L RBC 3.73 L Hgb 10.3 L Hct 31.2 L MCV 83.6 MCH 27.6 MCHC 33.0 RDW Std Deviation 46.8 H RDW Coeff of Skyler 15.2 H Plt Count 129 L MPV 9.1 Immature Gran % (Auto) 0.2 Neut % (Auto) 75.6 Lymph % (Auto) 12.5 [place] % (Auto) 9.9 Eos % (Auto) 1.6 Baso % (Auto) 0.2 Immature Gran # (Auto) 0.01 Neut # (Auto) 3.21 Lymph # (Auto) 0.53 L [place] # (Auto) 0.42 Eos # (Auto) 0.07 Baso # (Auto) 0.01 PT 11.9 INR 1.2 H APTT 27.1 PTT Ratio 1.0 Sodium 140 Potassium 3.9 Chloride 102 Carbon Dioxide 30 Anion Gap 8.0 BUN 19 H Creatinine 1.39 Est Cr Clr Drug Dosing 49.5 Est GFR ( Amer) 55.9 Est GFR (Non-Af Amer) 48.2 BUN/Creatinine Ratio 13.5 Glucose 204 H POC Glucose POC Lactic Acid Buddy Calcium 9.3 Total Bilirubin 2.7 H AST 13 L ALT 17 Alkaline Phosphatase 124 H Troponin I < 0.015 Total Protein 6.7 Albumin 3.2 L Globulin 3.5 Albumin/Globulin Ratio 0.9 Urine Color Urine Appearance Urine pH Ur Specific [place] Urine Protein Urine Glucose (UA) Urine Ketones Urine Blood Urine Nitrite Urine Bilirubin Urine Urobilinogen Ur Leukocyte Esterase Urine WBC (Auto) Urine RBC (Auto) U Hyaline Cast (Auto) U Epithel Cells (Auto) Urine Bacteria (Auto) Influenza Type A (PCR) Influenza Type B (PCR) 09/24/18 09/24/18 09/24/18 14:18 14:19 18:33 WBC RBC Hgb Hct MCV MCH MCHC RDW Std Deviation RDW Coeff of Skyler Plt Count MPV Immature Gran % (Auto) Neut % (Auto) Lymph % (Auto) [place] % (Auto) Eos % (Auto) Baso % (Auto) Immature Gran # (Auto) Neut # (Auto) Lymph # (Auto) [place] # (Auto) Eos # (Auto) Baso # (Auto) PT INR APTT PTT Ratio Sodium Potassium Chloride Carbon Dioxide Anion Gap BUN Creatinine Est Cr Clr Drug Dosing Est GFR ( Amer) Est GFR (Non-Af Amer) BUN/Creatinine Ratio Glucose POC Glucose 165 H POC Lactic Acid Buddy 1.52 Calcium Total Bilirubin AST ALT Alkaline Phosphatase Troponin I Total Protein Albumin Globulin Albumin/Globulin Ratio Urine Color Urine Appearance Urine pH Ur Specific [place] Urine Protein Urine Glucose (UA) Urine Ketones Urine Blood Urine Nitrite Urine Bilirubin Urine Urobilinogen Ur Leukocyte Esterase Urine WBC (Auto) Urine RBC (Auto) U Hyaline Cast (Auto) U Epithel Cells (Auto) Urine Bacteria (Auto) Influenza Type A (PCR) Neg for Influ A Influenza Type B (PCR) Neg for Influ B 09/24/18 09/24/18 09/25/18 19:15 20:29 07:06 WBC RBC Hgb Hct MCV MCH MCHC RDW Std Deviation RDW Coeff of Skyler Plt Count MPV Immature Gran % (Auto) Neut % (Auto) Lymph % (Auto) [place] % (Auto) Eos % (Auto) Baso % (Auto) Immature Gran # (Auto) Neut # (Auto) Lymph # (Auto) [place] # (Auto) Eos # (Auto) Baso # (Auto) PT INR APTT PTT Ratio Sodium Potassium Chloride Carbon Dioxide Anion Gap BUN Creatinine Est Cr Clr Drug Dosing Est GFR ( Amer) Est GFR (Non-Af Amer) BUN/Creatinine Ratio Glucose POC Glucose 245 H 335 H* POC Lactic Acid Buddy Calcium Total Bilirubin AST ALT Alkaline Phosphatase Troponin I Total Protein Albumin Globulin Albumin/Globulin Ratio Urine Color Yellow Urine Appearance Clear Urine pH 5.0 Ur Specific [place] 1.014 Urine Protein Negative Urine Glucose (UA) Negative Urine Ketones Negative Urine Blood 1+ H Urine Nitrite Negative Urine Bilirubin Negative Urine Urobilinogen Negative Ur Leukocyte Esterase Negative Urine WBC (Auto) 0 Urine RBC (Auto) 5-10 H U Hyaline Cast (Auto) 1-5 U Epithel Cells (Auto) 0-5 Urine Bacteria (Auto) Negative Influenza Type A (PCR) Influenza Type B (PCR) 09/25/18 09/25/18 11:03 11:05 WBC RBC Hgb Hct MCV MCH MCHC RDW Std Deviation RDW Coeff of Skyler Plt Count MPV Immature Gran % (Auto) Neut % (Auto) Lymph % (Auto) [place] % (Auto) Eos % (Auto) Baso % (Auto) Immature Gran # (Auto) Neut # (Auto) Lymph # (Auto) [place] # (Auto) Eos # (Auto) Baso # (Auto) PT INR APTT PTT Ratio Sodium Potassium Chloride Carbon Dioxide Anion Gap BUN Creatinine Est Cr Clr Drug Dosing Est GFR ( Amer) Est GFR (Non-Af Amer) BUN/Creatinine Ratio Glucose POC Glucose 442 H* 328 H* POC Lactic Acid Buddy Calcium Total Bilirubin AST ALT Alkaline Phosphatase Troponin I Total Protein Albumin Globulin Albumin/Globulin Ratio Urine Color Urine Appearance Urine pH Ur Specific [place] Urine Protein Urine Glucose (UA) Urine Ketones Urine Blood Urine Nitrite Urine Bilirubin Urine Urobilinogen Ur Leukocyte Esterase Urine WBC (Auto) Urine RBC (Auto) U Hyaline Cast (Auto) U Epithel Cells (Auto) Urine Bacteria (Auto) Influenza Type A (PCR) Influenza Type B (PCR) Medications Administered Current Inpatient Medications Acetaminophen (Tylenol) 650 mg PO Q4H PRN PRN Reason: Pain or Fever Stop: 10/24/18 18:31 Last Admin: 09/24/18 20:38 Dose: 650 mg Documented by: Al Hydrox/Mg Hydrox/Simethicone (Maalox) 15 ml PO Q4H PRN PRN Reason: Dyspepsia Stop: 10/24/18 18:31 Albuterol (Duoneb) 3 ml NEB QIDR ELIANA Stop: 10/24/18 19:59 Last Admin: 09/25/18 11:25 Dose: 3 ml Documented by: Albuterol (Duoneb) 3 ml NEB Q2H PRN PRN Reason: SOB/WHEEZING Stop: 10/24/18 18:41 Last Admin: 09/25/18 03:30 Dose: 3 ml Documented by: Alprazolam (Xanax) 1 mg PO TID PRN PRN Reason: anxiety Stop: 10/24/18 18:31 Atorvastatin Calcium (Lipitor) 40 mg PO QPM ELIANA Stop: 10/24/18 20:59 Last Admin: 09/24/18 20:34 Dose: 40 mg Documented by: Cyanocobalamin (Vitamin B-12) 1,000 mcg PO DAILY ELIANA Stop: 10/25/18 08:59 Last Admin: 09/25/18 08:07 Dose: 1,000 mcg Documented by: Docusate Sodium (Colace) 100 mg PO DAILY ELIANA Stop: 10/25/18 08:59 Last Admin: 09/25/18 08:07 Dose: 100 mg Documented by: Enoxaparin Sodium (Lovenox) 40 mg SQ Q24H ELIANA Stop: 10/24/18 18:59 Last Admin: 09/24/18 20:32 Dose: 40 mg Documented by: Escitalopram Oxalate (Lexapro) 20 mg PO QAM ELIANA Stop: 10/25/18 08:59 Last Admin: 09/25/18 08:07 Dose: 20 mg Documented by: Eszopiclone (Lunesta) 3 mg PO HS PRN PRN Reason: Sleep Stop: 10/24/18 18:31 Last Admin: 09/24/18 21:34 Dose: 3 mg Documented by: Ferrous Sulfate (Feosol) 325 mg PO DAILY ELIANA Stop: 10/25/18 08:59 Last Admin: 09/25/18 08:07 Dose: 325 mg Documented by: Finasteride (Proscar) 5 mg PO DAILY ELIANA Stop: 10/25/18 08:59 Last Admin: 09/25/18 08:07 Dose: 5 mg Documented by: Fluoxetine HCl (Prozac) 10 mg PO QAM EILANA Stop: 10/25/18 08:59 Last Admin: 09/25/18 08:06 Dose: 10 mg Documented by: Furosemide (Lasix) 40 mg PO QAM ELIANA Stop: 10/25/18 08:59 Last Admin: 09/25/18 08:07 Dose: 40 mg Documented by: Guaifenesin (Mucinex) 1,200 mg PO Q12 ELIANA Stop: 10/24/18 21:09 Last Admin: 09/25/18 08:06 Dose: 1,200 mg Documented by: Insulin Aspart (Novolog Flexpen) 0 units SC ACHS [facility] Stop: 10/24/18 20:59 Last Admin: 09/25/18 12:09 Dose: 12 units Documented by: Insulin Glargine (Lantus Solostar Pen) 15 units SC Q12 [facility] Stop: 10/25/18 08:59 Last Admin: 09/25/18 08:14 Dose: 15 units Documented by: Levofloxacin (Levaquin) 750 mg PO DAILY@1100 [facility] Stop: 10/01/18 10:59 Last Admin: 09/25/18 11:08 Dose: 750 mg Documented by: Lisinopril (Zestril) 2.5 mg PO QPM [facility] Stop: 10/24/18 20:59 Last Admin: 09/24/18 20:34 Dose: 2.5 mg Documented by: Ondansetron HCl (Zofran) 4 mg IV Q6H PRN PRN Reason: Nausea Stop: 10/24/18 18:31 Last Admin: 09/24/18 21:53 Dose: 4 mg Documented by: Prednisone (Prednisone) 40 mg PO [facility] Stop: 10/25/18 10:14 Last Admin: 09/25/18 11:07 Dose: 40 mg Documented by: Vitamin D (Vitamin D3) 5,000 units PO [facility] Stop: 10/25/18 08:59 Last Admin: 09/25/18 08:07 Dose: 5,000 units Documented by:
[2018-09-25] MEDS: predniSONE 20 MG TAB PO SCH (11:07)
[2018-09-25] MEDS: levoFLOXacin 750 MG TAB PO SCH (11:08)
[2018-09-25] MEDS ORDERED: INSULIN GLARGINE SOLOSTAR 100 UNITS/ML 3 ML PEN SC ONE (12:15)
[2018-09-25] MEDS ORDERED: LEVOFLOXACIN/D5W 750 MG/150 ML BAG IV SCH (17:00)
[2018-09-25] MEDS: ENOXAPARIN INJ 40 MG/0.4 ML SYR SQ SCH (18:28)
[2018-09-25] MEDS: ATORVASTATIN 40 MG TAB PO SCH (21:03)
[2018-09-25] MEDS: LISINOPRIL 2.5 MG TAB PO SCH (21:06)
[2018-09-25] MEDS: ESZOPICLONE 3 MG TAB PO PRN (21:17)
[2018-09-26] MEDS: ALBUT/IPRATROP 3MG/0.5MG NEB 3 ML VIAL NEB SCH ×2 (07:16→11:04)
[2018-09-26] MEDS: guaiFENesin 600 MG TABCR PO SCH (07:50)
[2018-09-26] MEDS: ESCITALOPRAM OXALATE 20 MG TAB PO SCH (07:50)
[2018-09-26] MEDS: FUROSEMIDE 40 MG TAB PO SCH (07:50)
[2018-09-26] MEDS: DOCUSATE SODIUM 100 MG CAP PO SCH (07:50)
[2018-09-26] MEDS: FERROUS SULFATE 325 MG TAB PO SCH (07:50)
[2018-09-26] MEDS: predniSONE 20 MG TAB PO SCH (07:50)
[2018-09-26] MEDS: CHOLECALCIFEROL 1,000 UNITS TAB PO SCH (07:51)
[2018-09-26] MEDS: FINASTERIDE 5 MG TAB PO SCH (07:51)
[2018-09-26] MEDS: FLUOXETINE HCL 10 MG CAP PO SCH (07:51)
[2018-09-26] MEDS: CYANOCOBALAMIN 500 MCG TABLET (VITAMIN B-12) PO SCH (07:51)
[2018-09-26] MEDS: INSULIN GLARGINE SOLOSTAR 100 UNITS/ML 3 ML PEN SC SCH (08:43)
[2018-09-26] MEDS: INSULIN ASPART 100 UNITS/ML 3 ML PEN SC SCH ×2 (08:44→12:31)
[2018-09-26] MEDS: levoFLOXacin 750 MG TAB PO SCH (11:16)
--- NOTE | 2018-09-26 14:42 | Discharge Summary ---
Date of Service September 26, 2018 Admission HPI Per Admitting Provider 78-year-old male with a 2 to 3-day history of productive cough of yellow phlegm associated with shortness of breath and wheezing. He presented to the ED for evaluation. Oxygen saturation was as low as 88% on room air. Chest x-ray is clear. He has asthmatic bronchitis associated with hypoxia. He was started on intravenous Levaquin in the ED and given respiratory treatments. He does meet admission criteria. He is admitted for further evaluation and treatment. His chronic systolic CHF is currently stable. Admission Exam Per Admitting Provider Constitutional: WD/WN, vitals as above Eyes: PERRL, conjunctivae normal, anicteric sclerae ENMT: external ear and nose normal, oropharynx normal Neck: trachea midline, no thyromegaly Respiratory: Midline rhonchi. Bilateral and expiratory wheezes. No dullness to percussion. No inspiratory rales Cardiovascular: Rate/Rhythm: regular rate and regular rhythm Heart Sounds: normal S1, normal S2 and + murmur (Grade 1/6 systolic murmur at the apex) Gastrointestinal (Abdomen): normal bowel sounds, soft, nontender, no hepatosplenomegaly Musculoskeletal: no cyanosis or clubbing, extremities motor strength 5/5 Skin: no rashes, warm and dry Neurologic: CN's II-XI intact bilaterally and moves all extremities; no focal motor deficits Principal Diagnosis Acute hypoxia Discharge Exam Constitutional WD/WN, vitals as above Eyes PERRL, conjunctivae normal, anicteric sclerae ENMT external ear and nose normal, oropharynx normal Neck trachea midline, no thyromegaly Respiratory normal respiratory effort, lungs clear to auscultation (no wheezing in all lung brito) Cardiovascular RRR, no murmur, no edema Gastrointestinal (Abdomen) normal bowel sounds, soft, nontender, no hepatosplenomegaly Musculoskeletal no cyanosis or clubbing, extremities motor strength 5/5 Skin no rashes, warm and dry Neurologic patellar DTR's 2+ bilat, sensation intact and PERRL, EOMI, accommodation nl, no face palsy, no dysarthria Psychiatric A+Ox3, euthymic affect Lymphatic no cervical or axillary lymphadenopathy Discharge Data Allergies Allergy/AdvReac Type Severity Reaction Status Date / Time Penicillins Allergy Mild 35 YRS AGO Verified 09/24/18 14:56 DEVELOPED RASH sertraline Allergy Unknown DID NOT Verified 09/24/18 14:56 TOLERATE MED Consultations 09/24/18 16:43 ED Decision to Admit Stat Hospital Course (1) Asthmatic bronchitis: sputum culture - no growth no wheezing on exam for two days will complete 7 days total of Levaquin 750mg PO daily will taper Prednisone to 30mg, decrease by 10mg every three days close follow up with Dr. Calles in one week (2) Hypoxia: Oxygen by nasal cannula to maintain saturation greater than 90%. Wean off as tolerated still having some desaturations off oxygen, dropped to 80's on room air with exertion on 09/25 resolved completely on 09/26, breathing comfortably and no hypoxia (3) Chronic systolic CHF (congestive heart failure): Currently stable. Continue current medical management examines euvolemic (4) Cardiomyopathy, nonischemic: Currently stable continue Lisinopril, Lasix 40mg, Coreg (hold temporarily due to asthmatic bronchitis) (5) DM2 (diabetes mellitus, type 2): now with hyperglycemia due to steroids started on Lantus 15 units q12 but behind give additional 15 units at noon tighten novolog coverage sugars much better controlled after the Lantus will only be on Prednisone for 9 days and only on 30mg for three days no plans for insulin on discharge Total Time Total Time Spent Total Time Spent (In Minutes): 35 Total Time Includes: Examination of the Patient, Discharge Planning and Medication Reconciliation Discharge Plan Discharge Items Patient Disposition: Home - Self-Care Reason For Visit: ASTHMA BRONCHITIS,HYPOXIA Discharge Diagnosis: Asthmatic bronchitis Hypoxia Condition: Good Discharge Goals: Decrease discomfort and Improve disease control Activity: Resume your previous activity Non-emergency contact: Primary Care Provider Call non-emergency contact if: you have any medication questions, your symptoms worsen and you have a fever Follow-up/Referrals: Barbara Calles DO [Primary Care Provider] - Diet: Carb Consistent or DM2 and Heart Healthy Addtl Provider Instructions: Medications: - LEVOFLOXACIN: 750mg daily, next dose due tomorrow, take for 4 more days - PREDNISONE: starting tomorrow, take 30mg (3 tabs) for three days, then 20mg daily for three days, then 10mg daily for three days - ALBUTEROL: 2 puffs every six hours as needed for shortness of breath Asthmatic bronchitis, no evidence of pneumonia on chest x-ray, associated with some mild hypoxia much improved with antibiotics and steroids continue the above regimen recommend that you get rest, stay well hydrated next several days follow up with Dr. Calles next week, call her office to schedule an appt Prescriptions: New levofloxacin 750 mg Tablet 750 mg PO DAILY@1100 4 Days Qty: 4 RF: 0 prednisone 10 mg tablet 10 mg PO UD 9 Days Qty: 18 RF: 0 albuterol sulfate 90 mcg/actuation HFA aerosol inhaler 2 puffs INH Q6H PRN (Reason: shortness of breath or wheezing) Qty: 8 RF: 1 Continued ferrous sulfate 325 mg (65 mg iron) tablet 325 mg PO QAM RF: 0 docusate sodium 100 mg tablet 100 mg PO DAILY RF: 0 cyanocobalamin (vitamin B-12) 1,000 mcg tablet 1,000 mcg PO DAILY Qty: 90 RF: 0 metformin 500 mg tablet extended release 24 hr 500 mg PO QAM Qty: 360 RF: 0 atorvastatin [Lipitor] 40 mg Tablet 40 mg PO QPM RF: 0 carvedilol [Coreg] 3.125 mg Tablet 3.125 mg PO BID RF: 0 cholecalciferol (vitamin D3) 5,000 unit Capsule 5,000 unit PO QAM RF: 0 escitalopram oxalate [Lexapro] 20 mg Tablet 20 mg PO QAM RF: 0 furosemide [Lasix] 40 mg Tablet 40 mg PO QAM RF: 0 lisinopril [Zestril] 2.5 mg Tablet 2.5 mg PO QPM RF: 0 melatonin 1 mg Tablet PO HS PRN (Reason: Sleep) RF: 0 eszopiclone 3 mg tablet 3 mg PO HS PRN (Reason: Sleep) RF: 0 Cold Multi-Symptom 5-10-325 mg Tablet 2 tab PO Q6H RF: 0 finasteride 5 mg Tablet 5 mg PO DAILY RF: 0 alprazolam 1 mg tablet 1 mg PO TID PRN (Reason: anxiety) Qty: 14 RF: 0 fluoxetine 10 mg Tablet 10 mg PO QAM RF: 0 acetaminophen [Pain Reliever] 500 mg tablet 1,000 mg PO Q8 PRN (Reason: pain) RF: 0 Stand-Alone Forms: [facility] Discharge Orders: Discharge Order (Routine); Ordered 09/26/18 Ordered By: Gerald Zaman Admission Data Admit Date/Time: 09/24/18 17:21 Attending Provider: Gerald Zaman Admit Provider: Roque Dozier Primary Care Provider: Barbara Calles Other Providers: Roque Dozier Service: Medical Other Interventions: Discharge Summary Assessment (RN) Last Done: 09/26/18 12:17 DC Date/Time DO NOT enter until pt leaves facility: 09/26/18 12:49
== END 2018-09-26 12:49 | disposition home or self-care (01) | DRG 202 ==
LOC: ED 13:51 → SUATTDRO 17:21 → 2E 17:21 → 4E 09-25 10:05

== ENCOUNTER 2020-01-05 19:25 | Observation (INO) ==
[2020-01-05] MEDS ORDERED: SODIUM CHLORIDE 0.9% 1000ML 1,000 ML IV STA (19:54)
[2020-01-05 20:42] LABS: Eosinophils # (auto) 0.05 K/uL (0-0.5); Eosinophils % (auto) 0.9 %; Hematocrit (blood only) 27.1 % (42-52); Hemoglobin 8.8 g/dL (14.0-18.0); Immature Granulocytes # (auto) 0.01 K/uL (0.00-0.02); Immature Granulocytes % (auto) 0.2 %; Lymphocytes % (auto) 5.2 %; Mean Corpuscular Hemoglobin 27.2 pg (25-34); Mean Corpuscular Hgb Conc 32.5 g/dL (32-36); Mean Corpuscular Volume 83.9 fL (80-100); Mean Platelet Volume 8.9 fL (7.4-10.4); Monocytes # (auto) 0.16 K/uL (0.11-0.59); Monocytes % (auto) 2.8 %; Neutrophils # (auto) 5.26 K/uL (1.4-6.5); Neutrophils % (auto) 90.9 %; Platelet Count 120 K/uL (130-400); RDW Coefficient of Variation 16.5 % (11.5-14.5); RDW Standard Deviation 50.9 fL (36.4-46.3); Red Blood Count 3.23 M/uL (4.7-6.1); White Blood Count 5.78 K/uL (4.8-10.8)
--- NOTE | 2020-01-05 20:45 | Emergency Department Note ---
Impression & Plan Hypoxia, SOB (shortness of breath), CHF (congestive heart failure) ED Provider Note INFORMANT: Patient ED PROVIDER(S): Carroll Crook MD CHIEF COMPLAINT: Shortness of breath PLAN: Disposition: Admitted Condition: Good MEDICAL DECISION MAKING: Patient presented complains of breathing problems. He has known cancer. The patient was requiring nasal cannula oxygen as he was mildly hypoxic. He has low blood pressure but record review indicated similar measurements in the past. The patient otherwise was doing well. An ECG was performed and he had a sinus rhythm with some lateral T wave inversions. His CBC showed a mild to moderate anemia. This has decreased slightly from his last value. The patient had a negative troponin. BNP was significantly elevated concerning for CHF. Patient had a mild elevation of his lactate. He did not have a fever. He underwent CT imaging of the chest which shows his known nodules, some with cavitation. Radiology noted these were unchanged. He does have pulmonary edema. I believe his issue is related to his CHF. He is doing well with supplemental oxygen. He was given a dose of IV Lasix. He will need further management in the hospital. Consultation was made with the [facility]. He was evaluated in the ER and admitted. Triage Nursing notes reviewed and agree them. Additional history obtained from patient's Prior medical records reviewed, chronic hypotension Vital Signs: reviewed and remarkable for hypoxia. The patient and mildly low blood pressure. Records review indicates patient frequently has low blood pressure measuring similar values. Differential diagnosis: Infection, dehydration, metabolic abnormality, hypo/hyperglycemia, electrolyte disturbance, anemia, hypoxia, cardiac sources, intracerebral event, toxicologic, neurologic, as well as other pathologies. Diagnostics interpreted by me: ECG: Twelve-lead ECG reveals a sinus rhythm with a first-degree AV block at 97 bpm. There is a nonspecific ST. Lateral T wave inversions. Prolonged QT present. No PVCs. Cardiac Monitoring: Cardiac monitoring ordered by me: The patient was placed on continuous cardiac monitoring and observed. It revealed a normal sinus rhythm at 90 beats per minute without ectopy or evidence of dysrhythmia. Imaging studies: CT imaging for PE as noted above. No pulmonary list. Known metastatic disease. I refer you to the EMR for further details. Consultation(s): Dr. Kurt Lopez of the [facility] HPI: The patient is a 79 year old male who presents to the Emergency Room with complaints of dizziness. This started this morning and is persisting. The patient also notes the following associated symptoms, SOB, nausea, resolved headache, weakness. The patient has found no relieving factors. Current pain is rated as 0/10. No sick contacts. He is receiving chemo for pancreatic cancer . Pt denies LOC, fevers, chills, diaphoresis, visual changes, neck pain, chest pain, vomiting, abdominal pain, back pain, melena, hematochezia, urinary symptoms, numbness, weakness, lymphadenopathy, rash, or other complaints. ROS: See above HPI for pertinent positives & negatives. A total of 10 systems reviewed and were otherwise negative. PAST MEDICAL HISTORY:See Below, pancreatic CA, CHF PAST SURGICAL HISTORY:See Below, mediport FAMILY HISTORY:See Below SOCIAL HISTORY:See Below, HOME MEDICATIONS:See Below ALLERGIES:See Below VITALS:See Below PHYSICAL EXAMINATION: GENERAL: Awake, alert, tired-appearing, in no distress HENT: Normocephalic, atraumatic. Oropharynx unremarkable. EYES: Normal conjunctiva. Sclera non-icteric. NECK: Inspection normal. Non-tender. Supple. No nuchal rigidity. FROM. No masses. RESPIRATORY: Clear to auscultation. No wheezes. No rales. Normal respiratory effort. CARDIAC: Normal rate. Normal rhythm. No murmurs. No rubs. Extremities warm and well perfused. Pulses equal. No JVD. GI: Soft, non-distended. No tenderness to palpation. No rebound or guarding. No masses. RECTAL: Deferred. MUSCULOSKELETAL: Atraumatic. Chest examination reveals no tenderness, port right upper chest. The back is symmetrical on inspection without obvious abnormality. There is no CVA tenderness to palpation. No joint edema. LOWER EXTREMITIES: Calves are equal size bilaterally and non-tender. trace edema. No discoloration. NEURO: Normal sensorium. No sensory or motor deficits noted. SKIN: No rash or jaundice noted. Carroll Crook MD Past Med/Surg History Medical History (Updated 01/06/20 @ 01:48 by Carroll Crook MD) Asthmatic bronchitis BPH with obstruction/lower urinary tract symptoms CAD (coronary atherosclerotic disease) Cardiomyopathy, nonischemic s/p dual chamber AICD implantation 08/2017. EF 20-25% on most recent echo 06/2019. Chronic systolic CHF (congestive heart failure) Depression with anxiety DM2 (diabetes mellitus, type 2) Dyslipidemia Dyspnea on exertion Hepatic steatosis History of kidney stones HTN (hypertension) Hypoxia Insomnia Malignant neoplasm of pancreas With mets to lungs Mild sleep apnea Nephrolithiasis Non-sustained ventricular tachycardia Obesity, Class I, BMI 30-34.9 Osteoarthritis Psoriasis Vitamin B12 deficiency Vitamin D deficiency Surgical History H/O arthroplasty ankle History of Achilles tendon repair LEFT History of arthroplasty of right knee History of cardiac cath x3 - all at [facility] - most recent beginning of 2017 r/t failed stress tests - no stents/angioplasty 2016 - abn stress test - no stents/angioplasty 2015 - abd stress test - no stents/angioplasty History of cataract surgery B/L History of colonoscopy History of esophagogastroduodenoscopy (EGD) History of lithotripsy History of PTCA History of total knee replacement LEFT/RT Port-A-Cath in place (~08/28/19) Insertion of Mediport with Fluoroscopy(Right) - Tobin Schneider DO, FACS 08/28/19 S/P internal cardiac defibrillator procedure (09/19/17) Dual-chamber Medtronic ICD, August 2017 (FOLLOWS WITH DR. BARAJAS) PLACED D/T IRREGULAR HEARTBEAT Family History Father Acute myocardial infarction Heart disease Myocardial infarction Mother Cancer Family history of diabetes mellitus Denies family history of Ovarian cancer Prostate cancer Breast cancer Colorectal cancer Social History Smoking Status: Never smoker Cigarettes Per Day: QUIT OVER 60YRS AGO; Second Hand Exposure: No; Hx Alcohol Use: No Hx Substance Use: No Preferred Language: Spanish Communication Ability: Effective Visual Impairment: No Limitations Hearing Ability: Normal Supervisor Contingents Required: No Beliefs That Will Affect Care: None marital status: Current Living Situation: Spouse current occupational status: retired Feels Safe at Home: Yes Childhood Exposure to Second-Hand Smoke: No caffeine: No during the past year weight has: remained stable Dental Care, Regularly: Yes Physical Activity Frequency: Does not Exercise Seatbelt Use: always Sunscreen Use: No Allergies Allergies Allergy/AdvReac Type Severity Reaction Status Date / Time Penicillins Allergy Mild 35 YRS AGO Verified 01/05/20 20:56 DEVELOPED RASH sertraline Allergy Unknown DID NOT Verified 01/05/20 20:56 TOLERATE MED Home Meds Home Medications Medication Instructions Recorded Confirmed cholecalciferol (vitamin D3) 5,000 unit PO QAM 02/13/18 01/05/20 acetaminophen [Pain Reliever] 500 mg PO Q8 PRN 06/01/18 01/05/20 cyanocobalamin (vitamin B-12) 1,000 mcg PO QAM #90 tab 09/18/18 01/05/20 1,000 mcg tablet ferrous sulfate 325 mg (65 mg 325 mg PO QAM tab 09/18/18 01/05/20 iron) tablet aspirin 81 mg tablet,delayed 81 mg PO QAM tab 10/30/18 01/05/20 release Tradjenta 5 mg PO QAM 08/26/19 01/05/20 lorazepam 0.5 mg tablet 0.5 mg PO HS PRN tab 11/05/19 01/05/20 Previous Rx's Medication Instructions Recorded metformin 500 mg tablet,extended 1,000 mg PO BID #360 tab 05/17/19 release 24 hr atorvastatin 40 mg tablet 40 mg PO HS #90 tab 08/02/19 fluoxetine 20 mg tablet 40 mg PO QAM #270 tab 09/03/19 carvedilol 3.125 mg tablet 3.125 mg PO BIDM #180 tab 09/10/19 lisinopril 2.5 mg tablet 2.5 mg PO QAM #90 tab 09/13/19 trazodone 100 mg tablet 100 mg PO HS #30 tab 11/19/19 furosemide 40 mg tablet 40 mg PO QAM #90 tab 12/03/19 tiotropium bromide 2.5 2 puff INHALATION DAILY #4 g 12/12/19 mcg/actuation mist for inhalation Results & Data (ED) Vital Signs Vital Signs - 24 hr 01/05/20 19:27 01/05/20 20:30 01/05/20 20:32 Temperature 36.8 C Temperature Source Oral Pulse Rate 113 H 98 H 97 H Pulse Rate from SpO2 Sensor 98 H 97 H Pulse Rhythm Regular Respiratory Rate 20 23 26 H Respiratory Effort / Characteristics Non-Labored Spontaneous Respiratory Depth Normal Respiratory Pattern Regular Blood Pressure 87/50 L 94/58 L Blood Pressure Mean 62 68 Pulse Oximetry 88 L 96 95 Oxygen Delivery Method Room Air Oxygen Flow Rate Sepsis Recent Fever Within 48 Hours No Sepsis New/Unexplained Change in Mental Status No Sepsis Action Taken by Nursing No Action Required 01/05/20 21:00 01/05/20 21:01 01/05/20 21:30 Temperature Temperature Source Pulse Rate 95 H 91 H 86 Pulse Rate from SpO2 Sensor 94 H 92 H 86 Pulse Rhythm Respiratory Rate 23 14 17 Respiratory Effort / Characteristics Respiratory Depth Respiratory Pattern Blood Pressure 89/50 L 92/59 L Blood Pressure Mean 62 76 Pulse Oximetry 98 98 98 Oxygen Delivery Method Oxygen Flow Rate Sepsis Recent Fever Within 48 Hours Sepsis New/Unexplained Change in Mental Status Sepsis Action Taken by Nursing 01/05/20 21:31 01/05/20 22:00 01/05/20 22:16 Temperature Temperature Source Pulse Rate 87 86 86 Pulse Rate from SpO2 Sensor 88 86 87 Pulse Rhythm Respiratory Rate 10 L 19 21 Respiratory Effort / Characteristics Respiratory Depth Respiratory Pattern Blood Pressure 89/53 L 86/47 L Blood Pressure Mean 62 53 Pulse Oximetry 98 97 98 Oxygen Delivery Method Oxygen Flow Rate Sepsis Recent Fever Within 48 Hours Sepsis New/Unexplained Change in Mental Status Sepsis Action Taken by Nursing 01/05/20 22:30 01/05/20 23:00 01/05/20 23:01 Temperature Temperature Source Pulse Rate 120 H 87 85 Pulse Rate from SpO2 Sensor 120 H 86 84 Pulse Rhythm Respiratory Rate 23 20 Respiratory Effort / Characteristics Respiratory Depth Respiratory Pattern Blood Pressure 76/52 L 81/51 L Blood Pressure Mean 55 62 Pulse Oximetry 98 97 97 Oxygen Delivery Method Oxygen Flow Rate Sepsis Recent Fever Within 48 Hours Sepsis New/Unexplained Change in Mental Status Sepsis Action Taken by Nursing 01/05/20 23:30 01/05/20 23:31 01/05/20 23:33 Temperature Temperature Source Pulse Rate 87 85 80 Pulse Rate from SpO2 Sensor 88 85 Pulse Rhythm Regular Respiratory Rate 26 H 23 23 Respiratory Effort / Characteristics Non-Labored Spontaneous Respiratory Depth Respiratory Pattern Blood Pressure 95/62 L Blood Pressure Mean 79 Pulse Oximetry 98 98 98 Oxygen Delivery Method Nasal Cannula Oxygen Flow Rate 2 Sepsis Recent Fever Within 48 Hours Sepsis New/Unexplained Change in Mental Status Sepsis Action Taken by Nursing 01/06/20 00:00 01/06/20 00:30 01/06/20 00:58 Temperature Temperature Source Pulse Rate 94 H 76 Pulse Rate from SpO2 Sensor 95 H 75 Pulse Rhythm Respiratory Rate 18 20 Respiratory Effort / Characteristics Non-Labored Spontaneous Respiratory Depth Respiratory Pattern Blood Pressure 91/59 L 95/65 L Blood Pressure Mean 68 81 Pulse Oximetry 97 99 97 Oxygen Delivery Method Nasal Cannula Oxygen Flow Rate 2 Sepsis Recent Fever Within 48 Hours Sepsis New/Unexplained Change in Mental Status Sepsis Action Taken by Nursing 01/06/20 01:00 Temperature Temperature Source Pulse Rate 82 Pulse Rate from SpO2 Sensor 82 Pulse Rhythm Respiratory Rate 18 Respiratory Effort / Characteristics Respiratory Depth Respiratory Pattern Blood Pressure 95/64 L Blood Pressure Mean 76 Pulse Oximetry 96 Oxygen Delivery Method Oxygen Flow Rate Sepsis Recent Fever Within 48 Hours Sepsis New/Unexplained Change in Mental Status Sepsis Action Taken by Nursing Laboratory Data Result diagrams: 01/05/20 20:22 01/05/20 20:22 Lab Results 01/05/20 01/05/20 01/05/20 Range/Units 20:22 20:22 20:22 WBC 5.78 (4.8-10.8) K/uL RBC 3.23 L (4.7-6.1) M/uL Hgb 8.8 L (14.0-18.0) g/dL Hct 27.1 L (42-52) % MCV 83.9 (80-100) fL MCH 27.2 (25-34) pg MCHC 32.5 (32-36) g/dL RDW Std Deviation 50.9 H (36.4-46.3) fL RDW Coeff of Skyler 16.5 H (11.5-14.5) % Plt Count 120 L (130-400) K/uL MPV 8.9 (7.4-10.4) fL Immature Gran % (Auto) 0.2 % Neut % (Auto) 90.9 % Lymph % (Auto) 5.2 % Glynn % (Auto) 2.8 % Eos % (Auto) 0.9 % Baso % (Auto) 0.0 % Neut # (Auto) 5.26 (1.4-6.5) K/uL Lymph # (Auto) 0.30 L (1.2-3.4) K/uL Glynn # (Auto) 0.16 (0.11-0.59) K/uL Eos # (Auto) 0.05 (0-0.5) K/uL Baso # (Auto) 0.00 (0-0.2) K/uL Immature Gran # (Auto) 0.01 (0.00-0.02) K/uL PT (9.0-12.0) Seconds INR (0.9-1.1) APTT (21.0-31.0) Seconds PTT Ratio Sodium 137 (136-145) mmol/L Potassium 4.2 (3.5-5.1) mmol/L Chloride 101 (98-107) mmol/L Carbon Dioxide 29 (21-32) mmol/L Anion Gap 7.0 (3-11) BUN 24 H (7-18) mg/dl Creatinine 1.20 (0.6-1.4) mg/dl Est Cr Clr Drug Dosing 54.8 ml/min Est GFR ( Amer) 66.3 Est GFR (Non-Af Amer) 57.2 BUN/Creatinine Ratio 19.6 (10-20) Glucose 212 H (70-99) mg/dl Lactate (0.4-2.0) mmol/L Calcium 9.2 (8.5-10.1) mg/dl Magnesium 1.4 L (1.8-2.4) mg/dl Total Bilirubin 1.8 H (0.2-1) mg/dl AST 10 L (15-37) U/L ALT 21 (12-78) U/L Alkaline Phosphatase 82 (45-117) U/L Troponin I 0.039 (0-0.045) ng/ml NT-Pro-B Natriuret Pep 52753 H (0-1800) pg/ml Total Protein 5.9 L (6.4-8.2) gm/dl Albumin 2.6 L (3.4-5.0) gm/dl Globulin 3.3 (2.5-4.0) gm/dl Albumin/Globulin Ratio 0.8 L (0.9-2) Procalcitonin 0.06 (0-0.5) ng/ml Urine Color Urine Appearance (Clear) Urine pH (4.5-7.5) Ur Specific [place] (1.000-1.030) Urine Protein (Negative) Urine Glucose (UA) (Negative) Urine Ketones (Negative) Urine Blood (Negative) Urine Nitrite (Negative) Urine Bilirubin (Negative) Urine Urobilinogen (Negative) Ur Leukocyte Esterase (Negative) 09/06/20 09/06/20 09/06/20 Range/Units 20:22 20:22 22:23 WBC (4.8-10.8) K/uL RBC (4.7-6.1) M/uL Hgb (14.0-18.0) g/dL Hct (42-52) % MCV (80-100) fL MCH (25-34) pg MCHC (32-36) g/dL RDW Std Deviation (36.4-46.3) fL RDW Coeff of Skyler (11.5-14.5) % Plt Count (130-400) K/uL MPV (7.4-10.4) fL Immature Gran % (Auto) % Neut % (Auto) % Lymph % (Auto) % Glynn % (Auto) % Eos % (Auto) % Baso % (Auto) % Neut # (Auto) (1.4-6.5) K/uL Lymph # (Auto) (1.2-3.4) K/uL Glynn # (Auto) (0.11-0.59) K/uL Eos # (Auto) (0-0.5) K/uL Baso # (Auto) (0-0.2) K/uL Immature Gran # (Auto) (0.00-0.02) K/uL PT 12.7 H (9.0-12.0) Seconds INR 1.2 H (0.9-1.1) APTT 32.8 H (21.0-31.0) Seconds PTT Ratio 1.2 Sodium (136-145) mmol/L Potassium (3.5-5.1) mmol/L Chloride (98-107) mmol/L Carbon Dioxide (21-32) mmol/L Anion Gap (3-11) BUN (7-18) mg/dl Creatinine (0.6-1.4) mg/dl Est Cr Clr Drug Dosing ml/min Est GFR ( Amer) Est GFR (Non-Af Amer) BUN/Creatinine Ratio (10-20) Glucose (70-99) mg/dl Lactate 2.5 H* 1.4 (0.4-2.0) mmol/L Calcium (8.5-10.1) mg/dl Magnesium (1.8-2.4) mg/dl Total Bilirubin (0.2-1) mg/dl AST (15-37) U/L ALT (12-78) U/L Alkaline Phosphatase (45-117) U/L Troponin I (0-0.045) ng/ml NT-Pro-B Natriuret Pep (0-1800) pg/ml Total Protein (6.4-8.2) gm/dl Albumin (3.4-5.0) gm/dl Globulin (2.5-4.0) gm/dl Albumin/Globulin Ratio (0.9-2) Procalcitonin (0-0.5) ng/ml Urine Color Urine Appearance (Clear) Urine pH (4.5-7.5) Ur Specific [place] (1.000-1.030) Urine Protein (Negative) Urine Glucose (UA) (Negative) Urine Ketones (Negative) Urine Blood (Negative) Urine Nitrite (Negative) Urine Bilirubin (Negative) Urine Urobilinogen (Negative) Ur Leukocyte Esterase (Negative) 01/06/20 Range/Units 00:05 WBC (4.8-10.8) K/uL RBC (4.7-6.1) M/uL Hgb (14.0-18.0) g/dL Hct (42-52) % MCV (80-100) fL MCH (25-34) pg MCHC (32-36) g/dL RDW Std Deviation (36.4-46.3) fL RDW Coeff of Skyler (11.5-14.5) % Plt Count (130-400) K/uL MPV (7.4-10.4) fL Immature Gran % (Auto) % Neut % (Auto) % Lymph % (Auto) % Glynn % (Auto) % Eos % (Auto) % Baso % (Auto) % Neut # (Auto) (1.4-6.5) K/uL Lymph # (Auto) (1.2-3.4) K/uL Glynn # (Auto) (0.11-0.59) K/uL Eos # (Auto) (0-0.5) K/uL Baso # (Auto) (0-0.2) K/uL Immature Gran # (Auto) (0.00-0.02) K/uL PT (9.0-12.0) Seconds INR (0.9-1.1) APTT (21.0-31.0) Seconds PTT Ratio Sodium (136-145) mmol/L Potassium (3.5-5.1) mmol/L Chloride (98-107) mmol/L Carbon Dioxide (21-32) mmol/L Anion Gap (3-11) BUN (7-18) mg/dl Creatinine (0.6-1.4) mg/dl Est Cr Clr Drug Dosing ml/min Est GFR ( Amer) Est GFR (Non-Af Amer) BUN/Creatinine Ratio (10-20) Glucose (70-99) mg/dl Lactate (0.4-2.0) mmol/L Calcium (8.5-10.1) mg/dl Magnesium (1.8-2.4) mg/dl Total Bilirubin (0.2-1) mg/dl AST (15-37) U/L ALT (12-78) U/L Alkaline Phosphatase (45-117) U/L Troponin I (0-0.045) ng/ml NT-Pro-B Natriuret Pep (0-1800) pg/ml Total Protein (6.4-8.2) gm/dl Albumin (3.4-5.0) gm/dl Globulin (2.5-4.0) gm/dl Albumin/Globulin Ratio (0.9-2) Procalcitonin (0-0.5) ng/ml Urine Color Yellow Urine Appearance Clear (Clear) Urine pH 5.0 (4.5-7.5) Ur Specific [place] 1.042 H (1.000-1.030) Urine Protein Negative (Negative) Urine Glucose (UA) Negative (Negative) Urine Ketones Negative (Negative) Urine Blood Negative (Negative) Urine Nitrite Negative (Negative) Urine Bilirubin Negative (Negative) Urine Urobilinogen Negative (Negative) Ur Leukocyte Esterase Negative (Negative) Administered Medications Sodium Chloride (Nss 1000ml) 1,000 mls @ 125 mls/hr IV .Q8H STA Stop: 01/06/20 03:53 Last Infusion: 01/06/20 00:39 Dose: 125 mls/hr Documented by: [id number] Admin: 01/05/20 20:42 Dose: 125 mls/hr Documented by: [id number] Discontinued Medications Furosemide (Furosemide 40 Mg/4 Ml Vial) 20 mg IV NOW STA Stop: 01/05/20 23:23 Last Admin: 09/06/20 23:32 Dose: 20 mg Documented by: [id number] Magnesium Sulfate/Dextrose (Magnesium Sulfate / D5w) 1 gm in 100 mls @ 100 mls/hr IV NOW STA Stop: 01/05/20 22:20 Last Infusion: 01/05/20 23:12 Dose: 0 mls/hr Documented by: [id number] Admin: 01/05/20 21:39 Dose: 100 mls/hr Documented by: [id number] Ioversol (Optiray 320 125ml) 119 ml IV ONCE ONE Stop: 01/05/20 22:07 Last Admin: 01/05/20 22:07 Dose: 119 ml Documented by: [id number] Discharge Plan Visit Data Chief Complaint: Vertigo Stated Complaint: DIZZY ED Provider: Carroll Crook Discharge Problem: Hypoxia, SOB (shortness of breath), CHF (congestive heart failure) Patient Disposition: Admitted As Inpatient Discharge Instructions Interventions: ED Discharge Assessment Last Done: 01/06/20 01:22
[2020-01-05 20:53] LABS: INR 1.2 (0.9-1.1); Partial Thromboplastin Ratio 1.2; Partial Thromboplastin Time 32.8 Seconds (21.0-31.0); Prothrombin Time 12.7 Seconds (9.0-12.0)
[2020-01-05 21:05] LABS: Albumin Level 2.6 gm/dl (3.4-5.0); BUN Creatinine Ratio 19.6 (10-20); Calcium 9.2 mg/dl (8.5-10.1); Creatinine Clr Calc Pharmacy 54.8 ml/min; Est GFR (African American) 66.3; Est GFR (Non-African American) 57.2; Magnesium 1.4 mg/dl (1.8-2.4); Potassium 4.2 mmol/L (3.5-5.1)
[2020-01-05 21:10] LABS: Albumin Globulin Ratio 0.8 (0.9-2); Bilirubin,Total 1.8 mg/dl (0.2-1); Globulin 3.3 gm/dl (2.5-4.0); Total Protein 5.9 gm/dl (6.4-8.2); Troponin I 0.039 ng/ml (0-0.045)
[2020-01-05] MEDS ORDERED: MAGNESIUM SULFATE / D5W 1 GM/100 ML BAG IV STA (21:21)
[2020-01-05] MEDS ORDERED: OPTIRAY 320 125ml IV ONE (22:06)
[2020-01-05] MEDS ORDERED: FUROSEMIDE 40 MG/4 ML VIAL IV STA (23:22)
[2020-01-06 00:20] LABS: Appearance Urine Clear (Clear); Bilirubin Urine Negative (Negative); Blood Urine Negative (Negative); Color Urine Yellow; Glucose Urine UA Negative (Negative); Ketones Urine Negative (Negative); Leukocyte Esterase Urine Negative (Negative); Nitrite Urine Negative (Negative); Protein Urine Negative (Negative); Specific Gravity Urine 1.042 (1.000-1.030); Urobilinogen Urine Negative (Negative)
--- NOTE | 2020-01-06 01:08 | History & Physical Report ---
Date of Service January 06, 2020 Assessment & Plan (1) Hypoxia: Michael Grimes is a 79 year old man with PMH of metastatic pancreatic cancer and CHF who presents with shortness of breath and weakness Acute CHF exacerbation Patient appears to be having a CHF exacerbation[place] [address] higher than any of his previous admissions Will give lasix with albumin to diurese one dose of lasix in ED, 40 more for am so as not to keep him up all night Holding his beta gilmar and marjorie inhibitor due to his hypotension Will need to restart on discharge. PICU for cardiac monitoring and strict I's and O's Metastatic Pancreatic Cancer Finished his course of abraxane gemcitibine, likely exacerbating his nausea and weakness Appt with Dr. Celestin scheduled for Monday Weakness Likely secondary to his cancer and chemotherapy, no evidence on laboratory imaging or exam of infection Will consult nutrition, will supppement albumin Dizziness/lightheadedness Appears to have chronic history of vertiginous symptoms, he describes room spinning, shiva hallpike negative also very possibly light headed as patient routinely runs low blood pressure Hypotension Will tread carefully with any fluid replacement given his degree of CHF MAP 98 during my exam will continue to monitor F/E/N: Holding fluids, low sodium diet DVT PPx: Lovenox subQ Dispo: PCU for diuresis and cardiac monitoring Full Code (2) SOB (shortness of breath): (3) CHF (congestive heart failure): (4) Insomnia: (5) Dyspnea: (6) Anemia: (7) Gastroesophageal reflux disease: (8) Malignant neoplasm of pancreas: (9) S/P internal cardiac defibrillator procedure: (10) DM2 (diabetes mellitus, type 2): History of Present Illness Chief Complaint: Shortness of Breath, Weakness, dizziness Primary Care Provider: Barbara Calles DO Michael Grimes is a 79 year old man with a past medical history significant for congestive heart failure, GERD, 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 eClestin. He has noticed a progressive shortness of breath with activity, while his activity has been minimal, getting up and walking to the bathroom he became more and more winded. He has also endorsed some tingling and pain of his right shoulder, weakness and some vertigo symptoms of the room spinning that he has had for some time. He has otherwise been well, does not endorse chest pain, increased leg swelling, He does sleep propped up. He has otherwise been well, has nausea with his chemo that is continuing, On presentation to ED patient continued to have shortness of breath that was resolved with 2 L O2. Patient's labwork significant for anemia of 8.8 (baseline appears to be around 10), Platelets of 120, INR of 1.2, Magnesium of 1.4, [place] 1[place] [address], Albumin 2.6. Imaging significant for Cardiomegaly, and multiple pulmonary nodules. Mild residual edema and trace pleural effusions. Patient lives with , had a fall over a month ago with abrasions on his leg, no more recent falls. Quit smoking fifty years ago, non drinker, no drug use. Follow up appointment with Dr. Celestin scheduled for Monday, Full code Allergies Allergy/AdvReac Type Severity Reaction Status Date / Time Penicillins Allergy Mild 35 YRS AGO Verified 01/05/20 20:56 DEVELOPED RASH sertraline Allergy Unknown DID NOT Verified 01/05/20 20:56 TOLERATE MED Home Medications Home Medications Medication Instructions Recorded Confirmed Type cholecalciferol (vitamin D3) 5,000 unit PO QAM 02/13/18 01/05/20 History acetaminophen [Pain Reliever] 500 mg PO Q8 PRN 06/01/18 01/05/20 History cyanocobalamin (vitamin B-12) 1,000 mcg PO QAM #90 tab 09/18/18 01/05/20 History 1,000 mcg tablet ferrous sulfate 325 mg (65 mg 325 mg PO QAM tab 09/18/18 01/05/20 History iron) tablet aspirin 81 mg tablet,delayed 81 mg PO QAM tab 10/30/18 01/05/20 History release metformin 500 mg tablet,extended 1,000 mg PO BID #360 tab 05/17/19 01/05/20 Rx release 24 hr atorvastatin 40 mg tablet 40 mg PO HS #90 tab 08/02/19 01/05/20 Rx Tradjenta 5 mg PO QAM 08/26/19 01/05/20 History fluoxetine 20 mg tablet 40 mg PO QAM #270 tab 09/03/19 01/05/20 Rx carvedilol 3.125 mg tablet 3.125 mg PO BIDM #180 tab 09/10/19 01/05/20 Rx lisinopril 2.5 mg tablet 2.5 mg PO QAM #90 tab 09/13/19 01/05/20 Rx lorazepam 0.5 mg tablet 0.5 mg PO HS PRN tab 11/05/19 01/05/20 History trazodone 100 mg tablet 100 mg PO HS #30 tab 11/19/19 01/05/20 Rx furosemide 40 mg tablet 40 mg PO QAM #90 tab 12/03/19 01/05/20 Rx tiotropium bromide 2.5 2 puff INHALATION DAILY #4 g 12/12/19 01/05/20 Rx mcg/actuation mist for inhalation Past Med/Surg History Medical History Asthmatic bronchitis BPH with obstruction/lower urinary tract symptoms CAD (coronary atherosclerotic disease) Cardiomyopathy, nonischemic s/p dual chamber AICD implantation 08/2017. EF 20-25% on most recent echo 06/2019. Chronic systolic CHF (congestive heart failure) Depression with anxiety DM2 (diabetes mellitus, type 2) Dyslipidemia Dyspnea on exertion Hepatic steatosis History of kidney stones HTN (hypertension) Hypoxia Insomnia Malignant neoplasm of pancreas With mets to lungs Mild sleep apnea Nephrolithiasis Non-sustained ventricular tachycardia Obesity, Class I, BMI 30-34.9 Osteoarthritis Psoriasis Vitamin B12 deficiency Vitamin D deficiency Surgical History H/O arthroplasty ankle History of Achilles tendon repair LEFT History of arthroplasty of right knee History of cardiac cath x3 - all at count includes the [facility] - most recent beginning of 2017 r/t failed stress tests - no stents/angioplasty 2017 - abn stress test - no stents/angioplasty 2016 - abd stress test - no stents/angioplasty History of cataract surgery B/L History of colonoscopy History of esophagogastroduodenoscopy (EGD) History of lithotripsy History of PTCA History of total knee replacement LEFT/RT Port-A-Cath in place (~08/28/19) Insertion of Mediport with Fluoroscopy(Right) - Tobin Schneider DO, FACS 08/28/19 S/P internal cardiac defibrillator procedure (05/22/18) Dual-chamber Med[employer]onic ICD, August 2017 (FOLLOWS WITH DR. BARAJAS) PLACED D/T IRREGULAR HEARTBEAT Family History Father Acute myocardial infarction Heart disease Myocardial infarction Mother Cancer Family history of diabetes mellitus Denies family history of Ovarian cancer Prostate cancer Breast cancer Colorectal cancer Social History Smoking Status: Never smoker Cigarettes Per Day: QUIT OVER 60YRS AGO; Second Hand Exposure: No; Hx Alcohol Use: No Hx Substance Use: No Preferred Language: Bahamian Communication Ability: Effective Visual Impairment: No Limitations Hearing Ability: Normal Reproductive Endocrinologist Required: No Beliefs That Will Affect Care: None marital status: Current Living Situation: Spouse current occupational status: retired Other Information That Helps Us Care for You: No Feels Safe at Home: Yes Childhood Exposure to Second-Hand Smoke: No caffeine: No during the past year weight has: remained stable Dental Care, Regularly: Yes Physical Activity Frequency: Does not Exercise Seatbelt Use: always Sunscreen Use: No Review of Systems Review of Systems: All systems reviewed & are unremarkable except as noted in HPI & below Physical Exam Constitutional: + ill appearing and + cachectic; + not well nourished, no acute distress and no altered mental status Eyes: PERRL, conjunctivae normal, anicteric sclerae ENMT: external ear and nose normal, oropharynx normal Respiratory: normal respiratory effort and + uses accessory muscles; no respiratory distress and no cough Auscultation: + crackles and + wheezes Cardiovascular: Rate/Rhythm: regular rate and regular rhythm Heart Sounds: + murmur Extremities: + edema (1+ edema b/l lower extremities) Gastrointestinal (Abdomen): normal bowel sounds, soft, nontender, no hepatosplenomegaly Skin: no rashes, warm and dry Results & Data Results & Data ([facility]) Vital Signs (Past 12 Hours) Vital Signs Temp Pulse Resp BP Pulse Ox 01/06/20 00:58 97 01/06/20 00:30 76 20 95/65 L 99 01/06/20 00:00 94 H 18 91/59 L 97 01/05/20 23:33 80 23 98 01/05/20 23:31 85 23 98 09/06/20 23:30 87 26 H 95/62 L 98 01/05/20 23:01 85 97 01/05/20 23:00 87 20 81/51 L 97 01/05/20 22:30 120 H 23 76/52 L 98 01/05/20 22:16 86 21 86/47 L 98 01/05/20 22:00 86 19 89/53 L 97 01/05/20 21:31 87 10 L 98 01/05/20 21:30 86 17 92/59 L 98 01/05/20 21:01 91 H 14 98 01/05/20 21:00 95 H 23 89/50 L 98 01/05/20 20:32 97 H 26 H 95 01/05/20 20:30 98 H 23 94/58 L 96 01/05/20 19:27 36.8 C 113 H 20 87/50 L 88 L Code Status & VTE Plan VTE Prophylaxis Plan VTE Prophylaxis will be ordered: Yes Supervising Physician Co-Signing Physician Notes Attending addendum: I have physically seen this patient, have supervised the medical residents activities, and agree with the H&P unless as otherwise noted. Assessment and Plan: Acute CHF exacerbation with hypoxia- Albumin with Lasix IV tonight, then IV Lasix 40 mg in a.m. Due to relative hypotension, will hold carvedilol and lisinopril Diabetes mellitus- Hold metformin. Place on Accu-Cheks before meals and at bedtime with NovoLog coverage per scale. Metastatic pancreatic cancer- Chemo side effects causing nausea and generalized weakness. Follows with Dr. Celestin. Remaining orders and notations as noted. Resident Activity Tracking Resident Involvement: Resident Care Provided Care Provided: Adult Hospital Medicine
[2020-01-06] MEDS ORDERED: LORazepam 0.5 MG TAB PO PRN (02:19)
[2020-01-06] MEDS ORDERED: ACETAMINOPHEN 500 MG TAB PO PRN (02:19)
[2020-01-06] MEDS ORDERED: GLUCOSE 10 TABS/TUBE PO PRN (02:19)
[2020-01-06] MEDS ORDERED: DEXTROSE 50% 50 ML SYRINGE IV PRN (02:19)
[2020-01-06] MEDS ORDERED: GLUCOSE 40% GEL 15 GM TUBE PO PRN (02:19)
[2020-01-06] MEDS ORDERED: GLUCAGON FOR INJ 1 MG VIAL SQ PRN (02:19)
[2020-01-06] MEDS ORDERED: CARBOHYDRATES FOR HYPOGLYCEMIA PO PRN (02:19)
[2020-01-06] MEDS: MAGNESIUM OXIDE 400 MG TAB PO SCH ×2 (04:09→07:57)
[2020-01-06] MEDS ORDERED: ALBUMIN 25% 50 ML IV ONE (06:00)
--- NOTE | 2020-01-06 07:15 | Electrocardiogram Report ---
Test Reason : Blood Pressure : / mmHG Vent. Rate : 097 BPM Atrial Rate : 097 BPM P-R Int : 212 ms QRS Dur : 112 ms QT Int : 366 ms P-R-T Axes : 071 -55 117 degrees QTc Int : 464 ms Sinus rhythm with 1st degree A-V block Left axis deviation Cannot rule out Inferior infarct Abnormal ECG When compared with ECG of 22-OCT-2019 19:23, T wave inversion now evident in Anterolateral leads Confirmed by Justino Jaime ([id number]) on 01/06/2020 7:15:03 AM Referred By: REFERRED SELF Confirmed By:Justino Jaime
[2020-01-06] MEDS ORDERED: FUROSEMIDE 40 MG in SYRINGE 0 ML IV SCH (07:30)
--- NOTE | 2020-01-06 08:20 | CT Scan Report ---
CT ANGIOGRAM OF THE CHEST CLINICAL HISTORY: Hypoxia. Pancreatic cancer. COMPARISON STUDY: Chest CT scans dated 10/22/2019 and 06/20/2016. TECHNIQUE: Following the IV administration of 119 cc of Optiray 320, CT angiogram of the chest was pe rformed from the upper abdomen to the thoracic inlet utilizing the pulmonary embolus protocol. Images are reviewed in the axial, sagittal, and coronal planes. 3-D MIPS images are created and assessed. I V contrast was administered without complication. A dose lowering technique was utilized adhering to the principles of ALARA. CT DOSE: 426.09 mGy.cm FINDINGS: Thyroid: Imaged portions of the thyroid gland are normal in size and attenuation. Thoracic aorta: There there is atherosclerotic calcification of the thoracic aorta, which is normal i n caliber and demonstrates standard 3-vessel arch anatomy. No dissection is seen. Pulmonary vasculature: The pulmonary trunk is normal in caliber. There are no filling defects identif ied in main, lobar, or segmental pulmonary branches to suggest pulmonary embolus. Heart: A 2-lead cardiac AICD is in place. A right subclavian central venous infusion port is noted. T he heart is enlarged and without pericardial effusion. There are coronary artery calcifications. Lungs and pleural spaces: Evaluation of the lung parenchyma is degraded by motion artifact. Trace ple ural effusions are noted. The trachea and central airways are clear. There are numerous cavitary pulm onary lesions, which are similar in appearance to the 10/22/2019 examination. The largest irregular le kurtis in the left lower lobe is seen on image #84 an measures up to 3 cm. at least 10 additional lesio ns are scattered throughout both lungs. Mild diffuse groundglass change is noted. Intralobular septal thickening is observed. Mediastinum: There are numerous mildly enlarged mediastinal lymph nodes. Ruth: There are calcified right hilar nodes. Enlarged bilateral hilar lymph nodes measure up to 2 cm in short axis. Axillae: There is no axillary lymphadenopathy. Upper abdomen: Partially visualized upper abdominal viscera is within normal limits. Skeletal structures: The skeletal structures are osteopenic. No lytic or blastic bony lesions are see n. IMPRESSION: 1. There is no evidence of pulmonary embolus in the main, lobar, or segmental pulmonary arteries. 2. Cardiomegaly and AICD. 3. Trace pleural effusions. These have decreased from 10/22/2019. 4. There are numerous cavitary pulmonary lesions scattered throughout both lungs. These are similar i n appearance to the 10/22/2019 examination. This carries a broad differential and correlation with the patient's medical and oncological history be required. 5. There is diffuse groundglass change as well as mild intralobular septal thickening. Correlate clin ically for evidence of superimposed congestive failure. 6. Additional findings as above. ACT 112: Negative or not required by law. Electronically signed by: Yousif Basilio M.D. 01/06/2020 8:18 AM
--- NOTE | 2020-01-06 08:47 | XRay Report ---
XR chest 1V portable HISTORY: 79 years-old Male SEPSIS acute sepsis COMPARISON: CTA chest of same day TECHNIQUE: Portable AP view of the chest FINDINGS: Cardiomegaly. Left subclavian pacer/AICD. Trace pleural effusions. Cavitary lung lesions are better s een on CTA chest of same day. Pulmonary vascular congestion with mild interstitial coarsening. No pne umothorax. Eventration of the right hemidiaphragm. Degenerative changes of the shoulders and spine. U nchanged right IJ central venous catheter. IMPRESSION: 1. Cardiomegaly with pulmonary vascular congestion and mild interstitial coarsening suspicious for pu lmonary edema. 2. Trace pleural effusions. 3. Bilateral cavitary lung lesions are better seen on comparison CTA of the chest. ACT 112: Negative or not required by law. The above report was generated using voice recognition software. It may contain grammatical, syntax o r spelling errors. Electronically signed by: Keven Harry M.D. 01/06/2020 8:45 AM
[2020-01-06] MEDS: INSULIN ASPART 100 UNITS/ML 3 ML PEN SC SCH ×2 (08:49→12:11)
[2020-01-06] MEDS ORDERED: UMECLIDINIUM BROMIDE 62.5MCG/BLISTER 7 PUFFS/INHALER INH SCH (09:00)
[2020-01-06] MEDS ORDERED: CYANOCOBALAMIN 500 MCG TABLET (VITAMIN B-12) PO SCH (09:00)
[2020-01-06] MEDS ORDERED: ASPIRIN 81 MG ECTAB PO SCH (09:00)
[2020-01-06] MEDS ORDERED: FLUOXETINE HCL 20 MG CAP PO SCH (09:00)
[2020-01-06] MEDS ORDERED: FUROSEMIDE 40 MG TAB PO SCH (09:00)
[2020-01-06] MEDS ORDERED: FERROUS SULFATE 325 MG TAB PO SCH (09:00)
[2020-01-06] MEDS ORDERED: ENOXAPARIN INJ 40 MG/0.4 ML SYR SQ SCH (09:00)
[2020-01-06] MEDS ORDERED: CHOLECALCIFEROL 1,000 UNITS 25 MCG TAB PO SCH (09:00)
--- NOTE | 2020-01-06 11:56 | Hospitalist Progress Note ---
Date of Service January 06, 2020 Assessment & Plan (1) Hypoxia: Michael Grimes is a 79 year old man with PMH of metastatic pancreatic cancer and CHF who presents with shortness of breath and weakness Acute on chronic CHF exacerbation Most recent cardiology visit was 10/25/[address] 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 He has a history of chronic CHF and has had multiple visits for this. On presentation to the emergency department he was having typical CHF symptoms, had a BNP elevated to 10,422, higher than any of his previous admissions. He has been hypotensive since admission, Lasix and albumin was given. He did well overnight, however remains persistently hypotensive. Per brief review of his records it appears that his pressures are always soft however normally in the 100s over 60s. Goal for this admission will be to gently diurese, while monitoring blood pressure. -Holding beta-gilmar and ALIYA I given his hypotension, restart when able -Admitted to the PICU for cardiac monitoring and strict I's and O's -Daily weights, strict I's and O's Metastatic Pancreatic Cancer Finished his course of abraxane gemcitibine, likely exacerbating his nausea and weakness -Appt with Dr. Celestin scheduled for Monday -No need for consult at present Weakness Likely secondary to his cancer and chemotherapy, no evidence on laboratory imaging or exam of infection. Total protein 5.9, albumin 2.6 -Will consult nutrition, will supplement albumin Dizziness/lightheadedness Chronic history of vertigo-like symptoms, describes the room spinning. Yordan- Hallpike negative, however given his hypotension this certainly could be a component of orthostasis. -Monitor for change in symptoms, or exacerbation. Hypotension Given his history of chronic CHF, and his current presentation with a BNP of 10,000, will be judicious with fluid administration. For the time being patient is asymptomatic from a blood pressure standpoint so no current need for fluid repletion. -Monitor blood pressure -Monitor for symptoms of hypotension DMII Long history of, not on home insulin. Requiring long-acting and sliding scale to keep his sugars under control in the hospital. -Sugars not well controlled overnight, tighten correction factor from 25-20 -Glycemic consult F/E/N: low sodium diet DVT PPx: Lovenox subQ Dispo: PCU for diuresis and cardiac monitoring Full Code (2) SOB (shortness of breath): (3) CHF (congestive heart failure): (4) Insomnia: (5) Dyspnea: (6) Anemia: (7) Gastroesophageal reflux disease: (8) Malignant neoplasm of pancreas: (9) S/P internal cardiac defibrillator procedure: (10) DM2 (diabetes mellitus, type 2): Admission and Anticipated Discharge Date Admission Date: January 06, 2020 Results & Data Results & Data ([facility]) Vital Signs (Past 12 Hours) Vital Signs Temp Pulse Pulse Resp BP BP BP 01/06/20 07:47 72 01/06/20 07:19 36.5 C 77 18 97/64 L 01/06/20 07:09 36.5 C 77 18 97/64 L 01/06/20 03:01 36.5 C 83 16 93/53 L 01/06/20 01:00 82 18 95/64 L 01/06/20 00:58 01/06/20 00:30 76 20 95/65 L 01/06/20 00:00 94 H 18 91/59 L Pulse Ox 01/06/20 07:47 01/06/20 07:19 97 01/06/20 07:09 97 01/06/20 03:01 92 01/06/20 01:00 96 01/06/20 00:58 97 01/06/20 00:30 99 01/06/20 00:00 97 Laboratory Results 01/06/20 01/06/20 01/06/20 Range/Units 11:44 07:26 00:05 WBC (4.8-10.8) K/uL RBC (4.7-6.1) M/uL Hgb (14.0-18.0) g/dL Hct (42-52) % MCV (80-100) fL MCH (25-34) pg MCHC (32-36) g/dL RDW Std Deviation (36.4-46.3) fL RDW Coeff of Skyler (11.5-14.5) % Plt Count (130-400) K/uL MPV (7.4-10.4) fL Immature Gran % (Auto) % Neut % (Auto) % Lymph % (Auto) % [place] % (Auto) % Eos % (Auto) % Baso % (Auto) % Neut # (Auto) (1.4-6.5) K/uL Lymph # (Auto) (1.2-3.4) K/uL [place] # (Auto) (0.11-0.59) K/uL Eos # (Auto) (0-0.5) K/uL Baso # (Auto) (0-0.2) K/uL Immature Gran # (Auto) (0.00-0.02) K/uL PT (9.0-12.0) Seconds INR (0.9-1.1) APTT (21.0-31.0) Seconds PTT Ratio Sodium (136-145) mmol/L Potassium (3.5-5.1) mmol/L Chloride (98-107) mmol/L Carbon Dioxide (21-32) mmol/L Anion Gap (3-11) BUN (7-18) mg/dl Creatinine (0.6-1.4) mg/dl Est Cr Clr Drug Dosing ml/min Est GFR ( Amer) Est GFR (Non-Af Amer) BUN/Creatinine Ratio (10-20) Glucose (70-99) mg/dl POC Glucose 158 H 252 H (70-99) mg/dl Lactate (0.4-2.0) mmol/L Calcium (8.5-10.1) mg/dl Magnesium (1.8-2.4) mg/dl Total Bilirubin (0.2-1) mg/dl AST (15-37) U/L ALT (12-78) U/L Alkaline Phosphatase (45-117) U/L Troponin I (0-0.045) ng/ml NT-Pro-B Natriuret Pep (0-1800) pg/ml Total Protein (6.4-8.2) gm/dl Albumin (3.4-5.0) gm/dl Globulin (2.5-4.0) gm/dl Albumin/Globulin Ratio (0.9-2) Procalcitonin (0-0.5) ng/ml Urine Color Yellow Urine Appearance Clear (Clear) Urine pH 5.0 (4.5-7.5) Ur Specific [place] 1.042 H (1.000-1.030) Urine Protein Negative (Negative) Urine Glucose (UA) Negative (Negative) Urine Ketones Negative (Negative) Urine Blood Negative (Negative) Urine Nitrite Negative (Negative) Urine Bilirubin Negative (Negative) Urine Urobilinogen Negative (Negative) Ur Leukocyte Esterase Negative (Negative) 01/05/20 01/05/20 01/05/20 Range/Units 22:23 20:22 20:22 WBC (4.8-10.8) K/uL RBC (4.7-6.1) M/uL Hgb (14.0-18.0) g/dL Hct (42-52) % MCV (80-100) fL MCH (25-34) pg MCHC (32-36) g/dL RDW Std Deviation (36.4-46.3) fL RDW Coeff of Skyelr (11.5-14.5) % Plt Count (130-400) K/uL MPV (7.4-10.4) fL Immature Gran % (Auto) % Neut % (Auto) % Lymph % (Auto) % [place] % (Auto) % Eos % (Auto) % Baso % (Auto) % Neut # (Auto) (1.4-6.5) K/uL Lymph # (Auto) (1.2-3.4) K/uL [place] # (Auto) (0.11-0.59) K/uL Eos # (Auto) (0-0.5) K/uL Baso # (Auto) (0-0.2) K/uL Immature Gran # (Auto) (0.00-0.02) K/uL PT 12.7 H (9.0-12.0) Seconds INR 1.2 H (0.9-1.1) APTT 32.8 H (21.0-31.0) Seconds PTT Ratio 1.2 Sodium (136-145) mmol/L Potassium (3.5-5.1) mmol/L Chloride (98-107) mmol/L Carbon Dioxide (21-32) mmol/L Anion Gap (3-11) BUN (7-18) mg/dl Creatinine (0.6-1.4) mg/dl Est Cr Clr Drug Dosing ml/min Est GFR ( Amer) Est GFR (Non-Af Amer) BUN/Creatinine Ratio (10-20) Glucose (70-99) mg/dl POC Glucose (70-99) mg/dl Lactate 1.4 2.5 H* (0.4-2.0) mmol/L Calcium (8.5-10.1) mg/dl Magnesium (1.8-2.4) mg/dl Total Bilirubin (0.2-1) mg/dl AST (15-37) U/L ALT (12-78) U/L Alkaline Phosphatase (45-117) U/L Troponin I (0-0.045) ng/ml NT-Pro-B Natriuret Pep (0-1800) pg/ml Total Protein (6.4-8.2) gm/dl Albumin (3.4-5.0) gm/dl Globulin (2.5-4.0) gm/dl Albumin/Globulin Ratio (0.9-2) Procalcitonin (0-0.5) ng/ml Urine Color Urine Appearance (Clear) Urine pH (4.5-7.5) Ur Specific [place] (1.000-1.030) Urine Protein (Negative) Urine Glucose (UA) (Negative) Urine Ketones (Negative) Urine Blood (Negative) Urine Nitrite (Negative) Urine Bilirubin (Negative) Urine Urobilinogen (Negative) Ur Leukocyte Esterase (Negative) 01/05/20 01/05/20 01/05/20 Range/Units 20:22 20:22 20:22 WBC 5.78 (4.8-10.8) K/uL RBC 3.23 L (4.7-6.1) M/uL Hgb 8.8 L (14.0-18.0) g/dL Hct 27.1 L (42-52) % MCV 83.9 (80-100) fL MCH 27.2 (25-34) pg MCHC 32.5 (32-36) g/dL RDW Std Deviation 50.9 H (36.4-46.3) fL RDW Coeff of Skyler 16.5 H (11.5-14.5) % Plt Count 120 L (130-400) K/uL MPV 8.9 (7.4-10.4) fL Immature Gran % (Auto) 0.2 % Neut % (Auto) 90.9 % Lymph % (Auto) 5.2 % [place] % (Auto) 2.8 % Eos % (Auto) 0.9 % Baso % (Auto) 0.0 % Neut # (Auto) 5.26 (1.4-6.5) K/uL Lymph # (Auto) 0.30 L (1.2-3.4) K/uL [place] # (Auto) 0.16 (0.11-0.59) K/uL Eos # (Auto) 0.05 (0-0.5) K/uL Baso # (Auto) 0.00 (0-0.2) K/uL Immature Gran # (Auto) 0.01 (0.00-0.02) K/uL PT (9.0-12.0) Seconds INR (0.9-1.1) APTT (21.0-31.0) Seconds PTT Ratio Sodium 137 (136-145) mmol/L Potassium 4.2 (3.5-5.1) mmol/L Chloride 101 (98-107) mmol/L Carbon Dioxide 29 (21-32) mmol/L Anion Gap 7.0 (3-11) BUN 24 H (7-18) mg/dl Creatinine 1.20 (0.6-1.4) mg/dl Est Cr Clr Drug Dosing 54.8 ml/min Est GFR ( Amer) 66.3 Est GFR (Non-Af Amer) 57.2 BUN/Creatinine Ratio 19.6 (10-20) Glucose 212 H (70-99) mg/dl POC Glucose (70-99) mg/dl Lactate (0.4-2.0) mmol/L Calcium 9.2 (8.5-10.1) mg/dl Magnesium 1.4 L (1.8-2.4) mg/dl Total Bilirubin 1.8 H (0.2-1) mg/dl AST 10 L (15-37) U/L ALT 21 (12-78) U/L Alkaline Phosphatase 82 (45-117) U/L Troponin I 0.039 (0-0.045) ng/ml NT-Pro-B Natriuret Pep 96993 H (0-1800) pg/ml Total Protein 5.9 L (6.4-8.2) gm/dl Albumin 2.6 L (3.4-5.0) gm/dl Globulin 3.3 (2.5-4.0) gm/dl Albumin/Globulin Ratio 0.8 L (0.9-2) Procalcitonin 0.06 (0-0.5) ng/ml Urine Color Urine Appearance (Clear) Urine pH (4.5-7.5) Ur Specific [place] (1.000-1.030) Urine Protein (Negative) Urine Glucose (UA) (Negative) Urine Ketones (Negative) Urine Blood (Negative) Urine Nitrite (Negative) Urine Bilirubin (Negative) Urine Urobilinogen (Negative) Ur Leukocyte Esterase (Negative) Medications Administered Current Inpatient Medications Acetaminophen (Acetaminophen 500 Mg Tab) 500 mg PO Q8 PRN PRN Reason: pain Stop: 02/05/20 02:18 Aspirin (Aspirin 81 Mg Ectab) [facility] [place] Stop: 02/05/20 08:59 Last Admin: 01/06/20 07:58 Dose: 81 mg Documented by: Atorvastatin Calcium (Atorvastatin 40 Mg Tab) 40 mg PO HS [facility] Stop: 02/05/20 20:59 Cyanocobalamin (Cyanocobalamin 500 Mcg Tablet (Vitamin B-12)) 1,000 mcg [facility] [place] Stop: 02/05/20 08:59 Last Admin: 01/06/20 08:00 Dose: 1,000 mcg Documented by: Dextrose (Dextrose 50% 50 Ml Syringe) 25 - 50 ml IV UD PRN; Protocol PRN Reason: Hypoglycemia Protocol Stop: 02/05/20 02:18 Enoxaparin Sodium (Enoxaparin Inj 40 Mg/0.4 Ml Syr) 40 mg SQ Q24H [facility] Stop: 02/05/20 02:18 Last Admin: 01/06/20 08:50 Dose: 40 mg Documented by: Ferrous Sulfate (Ferrous Sulfate 325 Mg Tab) 325 [facility] [place] Stop: 02/05/20 08:59 Last Admin: 01/06/20 07:58 Dose: 325 mg Documented by: Fluoxetine HCl (Fluoxetine Hcl 20 Mg Cap) 40 mg PO [facility] Stop: 02/05/20 08:59 Last Admin: 01/06/20 08:00 Dose: 40 mg Documented by: Furosemide (Furosemide 40 Mg Tab) 40 mg PO QAM [facility] Stop: 02/05/20 08:59 Last Admin: 01/06/20 08:00 Dose: 40 mg Documented by: Glucagon (Glucagon For Inj 1 Mg Vial) 1 mg SQ UD PRN; Protocol PRN Reason: Hypoglycemia Protocol Stop: 02/05/20 02:18 Glucose (Glucose 10 Tabs/Tube) 4 - 8 tabs PO UD PRN; Protocol PRN Reason: Hypoglycemia Protocol Stop: 02/05/20 02:18 Glucose (Glucose 40% Gel 15 Gm Tube) 15 - 30 gm PO UD PRN; Protocol PRN Reason: Hypoglycemia Protocol Stop: 02/05/20 02:18 Insulin Aspart (Insulin Aspart 100 Units/Ml 3 Ml Pen) 0 units SC ACHS [facility] Stop: 02/05/20 07:29 Last Admin: 01/06/20 08:49 Dose: 7 units Documented by: Lorazepam (Lorazepam 0.5 Mg Tab) 0.5 mg PO HS PRN PRN Reason: Sleep Stop: 02/05/20 02:18 Magnesium Oxide (Magnesium Oxide 400 Mg Tab) 400 mg PO BID [facility] Stop: 02/05/20 02:29 Last Admin: 01/06/20 07:57 Dose: 400 mg Documented by: Miscellaneous (Carbohydrates For Hypoglycemia ) 15 - 30 gm PO UD PRN PRN Reason: Hypoglycemia Protocol Stop: 02/05/20 02:18 Miscellaneous (Tradjenta - Order Awaiting Action) 1 ea N/A QS [facility] Stop: 02/05/20 07:59 Last Admin: 01/06/20 08:15 Dose: Not Given Documented by: Trazodone HCl (Trazodone Hcl 100 Mg Tab) 100 mg PO HS [facility] Stop: 02/05/20 20:59 Umeclidinium [place] (Umeclidinium [place] 62.5mcg/Blister 7 Puffs/Inhaler) 1 puffs INH DAILY [facility] Stop: 02/05/20 08:59 Last Admin: 01/06/20 08:47 Dose: 1 puffs Documented by: Vitamin D (Cholecalciferol 1,000 Units 25 Mcg Tab) 5,000 units PO QAM [facility] Stop: 02/05/20 08:59 Last Admin: 01/06/20 07:58 Dose: 5,000 units Documented by:
[2020-01-06] MEDS ORDERED: PHARMACY GLYCEMIC MGMT CONSULT PRN (12:15)
--- NOTE | 2020-01-06 13:52 | Pharmacy Report ---
Glycemic Control Consultation - Date of Service January 06, 2020 - Scope Scope: Glycemic Pharmacist consulted for glycemic control and to write orders per [facility] inpatient glycemic control protocol. - Objective Weight: 83.4 kg Accuchecks BSG (last 24hrs): 01/05/20 01/06/20 01/06/20 20:22 07:26 11:44 Glucose 212 H POC Glucose 252 H 158 H Laboratory Data (last 24hrs): 01/05/20 20:22 Potassium 4.2 Carbon Dioxide 29 Anion Gap 7.0 Creatinine 1.20 Est Cr Clr Drug Dosing 54.8 - Recent Pertinent Medications Outpatient Anti-diabetic Regimen: * tradjenta, metformin * A1c = 7.2 % 06/2019 The patient is currently receiving: * Correctional Insulin: Novolog Correction per scale ACHS Goal Range: Low 100 mg/dL - High 140 mg/dL Correction Factor: 20 mg/dL/unit * Prandial insulin: Per carb ratio of 1 unit per 7 grams CHO consumed Risk Factors for Insulin Resistance: * Diet: t2dm - Assessment & Plan Assessment & Plan: ASSESSMENT: * 79 year old male admitted with hypoxia/CHF exacerbation. PMHx significant for metastatic pancreatic cancer, type 2 diabetes. Managed only on oral diabetic agents at home. Pharmacy consulted for glycemic management * BSGs on admission elevated at 252 mg/dL - unclear reasoning / lunch time BSG trending down to 158 mg/dL * Will continue same CF/CR for now and enter scale for Lantus for HS PLAN FOR INPATIENT GLYCEMIC CONTROL: * Holding outpatient oral diabetes medications * Basal insulin * Lantus 0-15 units HS based upon BSG value - see eMar for more details * Bolus insulin * NovoLog per scale ACHS or Q6hrs while NPO * Goal Range: Low 110 mg/dL - High 150 mg/dL * Correction Factor: 20 mg/dL/unit * Nutritional / Prandial insulin per carb ratio of 1 unit per 7 grams CHO consumed * Please note that the plan above was derived based on current level of insulin resistance and hospital stress. These recommendations are appropriate for inpatient admission only. Plan of care upon discharge will need to be reassessed to avoid potential outpatient hypo/hyperglycemia. Thank you.
--- NOTE | 2020-01-06 15:13 | Discharge Summary ---
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 Celestin. He has noticed a progressive shortness of breath with activity, while his activity has been minimal, getting up and walking to the bathroom he became more and more winded. He has also endorsed some tingling and pain of his right shoulder, weakness and some vertigo symptoms of the room spinning that he has had for some time. He has otherwise been well, does not endorse chest pain, increased leg swelling, He does sleep propped up. He has otherwise been well, has nausea with his chemo that is continuing, On presentation to ED patient continued to have shortness of breath that was resolved with 2 L O2. Patient's labwork significant for anemia of 8.8 (baseline appears to be around 10), Platelets of 120, INR of 1.2, Magnesium of 1.4, total bili [place] 1.8[place] [address], Albumin 2.6. Imaging significant for Cardiomegaly, and multiple pulmonary nodules. Mild residual edema and trace pleural effusions. Patient lives with , had a fall over a month ago with abrasions on his leg, no more recent falls. Quit smoking fifty years ago, non drinker, no drug use. Follow up appointment with Dr. Celestin scheduled for Monday, Full code Admission Exam Per Admitting Provider Constitutional: + ill appearing and + cachectic; + not well nourished, no acute distress and no altered mental status Eyes: PERRL, conjunctivae normal, anicteric sclerae ENMT: external ear and nose normal, oropharynx normal Respiratory: normal respiratory effort and + uses accessory muscles; no respiratory distress and no cough Auscultation: + crackles and + wheezes Cardiovascular: Rate/Rhythm: regular rate and regular rhythm Heart Sounds: + murmur Extremities: + edema (1+ edema b/l lower extremities) Gastrointestinal (Abdomen): normal bowel sounds, soft, nontender, no hepatosplenomegaly Skin: no rashes, warm and dry Principal Diagnosis Acute on chronic CHF exacerbation complicated by hypotension in the setting of metastatic pancreatic cancer Discharge Data Allergies Allergy/AdvReac Type Severity Reaction Status Date / Time Penicillins Allergy Mild 35 YRS AGO Verified 01/05/20 20:56 DEVELOPED RASH sertraline Allergy Unknown DID NOT Verified 01/05/20 20:56 TOLERATE MED Consultations 01/05/20 23:21 ED Decision to Admit Stat Ordered Studies 01/05/20 21:21 CT angio chest PE protocol Urgent Hospital Course (1) Hypoxia: PCP to do: -Repeat CBC Michael Grimes is a 79 year old man with PMH of metastatic pancreatic cancer and CHF who presents with shortness of breath and weakness Acute on chronic CHF exacerbation Most recent cardiology visit was 10/25/[address] Levine for this visit he has a history of congestive heart failure (LVEF 20 to 25% on echo from 07/18) nonobstructive coronary disease dual-chamber ICD placed 09/20/2017 for cardiomyopathy. He has a history of chronic CHF and has had multiple visits for this. On presentation to the emergency department he was having typical CHF symptoms, had a BNP elevated to 10,422, higher than any of his previous admissions. He has been hypotensive since admission, Lasix and albumin was given.He did well overnight, however remains persistently hypotensive Per brief review of his records it appears that his pressures are always soft however normally in the 100s over 60s. Goal for this admission will be to gently diurese, while monitoring blood pressure. His beta-gilmar and ALIYA inhibitor's were held during the admission due to his hypotension. He was m onitored in the PICU without any arrhythmias. On the day of discharge I attempted to provoke an orthostatic response during my examination of the patient and was unable to do so. In fact he jumped out of bed and was able to walk around without any assistance. We discussed the importance of diet nutrition and it appears as if he understands the factors that led him to present to the hospital for this admission. Metastatic Pancreatic Cancer Finished his course of abraxane gemcitibine, likely exacerbating his nausea and weakness -Appt with Dr. Celestin scheduled for tomorrow Weakness Likely secondary to his cancer and chemotherapy, no evidence on laboratory imaging or exam of infection. Total protein 5.9, albumin 2.6 -Nutrition was consulted Dizziness/lightheadedness Chronic history of vertigo-like symptoms, describes the room spinning. Cameron- Hallpike negative, however given his hypotension this certainly could be a component of orthostasis. Attempted to provoke an orthostatic response on the day of discharge and was unable to. -Monitor for change in symptoms, or exacerbation. Hypotension Given his history of chronic CHF, and his current presentation with a BNP of 10,000, will be judicious with fluid administration. Per Dr. Levine's last office note, they were considering a trial of stopping his beta gilmar. DMII Long history of, not on home insulin. Requiring long-acting and sliding scale to keep his sugars under control in the hospital. F/E/N: low sodium diet DVT PPx: Lovenox subQ Dispo: Home self-care Full Code (2) SOB (shortness of breath): (3) CHF (congestive heart failure): (4) Insomnia: (5) Dyspnea: (6) Anemia: (7) Gastroesophageal reflux disease: (8) Malignant neoplasm of pancreas: (9) S/P internal cardiac defibrillator procedure: (10) DM2 (diabetes mellitus, type 2): Total Time Total Time Spent Total Time Spent (In Minutes): see attending attestation Discharge Plan Discharge Items Patient Disposition: Home - Self-Care Reason For Visit: CHF EXACERBATION, PANCREATIC CANCER, HYPOXEMIC RES Discharge Diagnosis: Acute on chronic CHF exacerbation complicated by hypotension in the setting of metastatic pancreatic cancer Activity: Resume your previous activity Non-emergency contact: Primary Care Provider Call non-emergency contact if: you have any medication questions, your symptoms worsen and your pain is not controlled Follow-up/Referrals: Barbara Calles DO [Primary Care Provider] - Diet: Carb Consistent or DM2 Addtl Attending Provider Instructions: Care instructions: You were admitted to [facility] for treatment of congestive heart failure exacerbation. You presented to the hospital with difficulty breathing, your labs, and imaging studies were consistent with a congestive heart failure exacerbation for fluid buildup around your lungs. You were given diuretics while hospitalized, and your blood pressure was monitored over the period of 24 hours you significantly improved and was subsequently discharged. Prior to discharge we provided some education regarding congestive heart failure. To summarize briefly: It is important that you watch your diet, limit your intake of salty foods. Salt is hidden in numerous common foods that you may be unaware. Examples of foods high in salt are daily needs, smoking makes, barbecue, pickled foods, most fried foods, most foods you should limit your consumption of these foods. -In addition to the above you should limit the amount of salt you use and home- cooked meals. -You should limit adding additional salt to your food prior to consumption -You should try to limit your water consumption, however not less than 1-1/2 quarts of water or 1.5 L/day. -You should meet with your primary care provider and develop a plan for medications you can take if he begins to feel symptoms of heart failure -In addition to the above exercise can significantly improve your symptoms and overall quality of life we recommend 30 minutes of exercise per day. Constipation: Please begin a regimen where you take 1 capful of MiraLAX per day -If this does not lead to a bowel movement please take 2 capfuls of MiraLAX on the next day -If this does not lead to a bowel movement please take 3 capfuls of MiraLAX on the next day -If this does not lead to a bowel movement please contact your primary care provider Please follow-up with your primary care provider within 1 week of discharge to discuss how you can implement these strategies to prevent readmissions to the hospital and improve your overall quality of life. Additionally you should discuss the following with your primary care provider: -Anemia, your hemoglobin the oxygen-carrying molecule in your cells was found to be low during her hospitalization, there are number of causes of anemia including chronic disease. You should have a complete blood count drawn by her primary care provider to further characterize the nature of this anemia. -Diabetes, well hospitalized you had a couple episodes of hyperglycemia or high blood sugar. You should discuss your blood sugar control with your primary care provider to ensure you are on the correct regimen A discharge summary will be sent to your primary care physician to ensure continuity of care. Please bring this discharge summary with you to your next office appointment so that your provider can review it at that time. Follow-up appointments: - Keep all your follow-up appointments as already scheduled. If you cannot make an appointment, notify your provider. - Please call to request a follow-up appointment with your primary care physician within one week of discharge. Please let us know if you are unable to obtain an appointment Medications: - Your medication list has been reviewed and reconciled upon discharge to ensure accuracy and continuity of care. - You are provided with a list of all your current medications at this time. Please review this list closely and make note of any changes. - Please take all of your medications exactly as prescribed. - Tell your primary care provider if you cannot afford your medications. - Call your primary care provider if you are having any side effects or any other problems. - Call your primary care provider before taking any over the counter medications or supplements, including herbals and vitamins, because some of these may interact with your current medications and/or make your symptoms worse. Symptoms: Please call your primary care provider for symptoms including, but not limited to: fevers (temperatures greater than 100.4), chills, intractable nausea or vomiting, diarrhea, rash, shortness of breath, bleeding, pain, or if you experience any worsening of the symptoms that brought you to the hospital. For EMERGENCY and VERY SERIOUS health-related issues, such as chest pain, shortness of breath, or sudden onset of the symptoms that brought you to the hospital, you may need to call 911 or go directly to the Emergency Room It has been our privilege to take care of you during your hospital stay. And Above All Else Feel Better! Best Wishes, Lj Han MD PGY3 Resident, Family & Community Medicine [facility] Residency at [facility] - [address], [address] MC: [address], [place] [address] Pending Studies at Discharge: No Stand-Alone Forms: My [facility], Smoking Cessation Medications and DC Order Prescriptions: Continued metformin 500 mg tablet extended release 24 hr 1,000 mg PO BID Qty: 360 RF: 1 atorvastatin [Lipitor] 40 mg tablet 40 mg PO HS Qty: 90 RF: 1 lisinopril [Zestril] 2.5 mg tablet 2.5 mg PO QAM Qty: 90 RF: 1 trazodone 100 mg tablet 100 mg PO HS Qty: 30 RF: 2 furosemide [Lasix] 40 mg tablet 40 mg PO QAM Qty: 90 RF: 1 Spiriva Respimat 2.5 mcg/actuation mist 2 puff inhalation DAILY Qty: 4 RF: 3 aspirin 81 mg tablet,delayed release (DR/EC) 81 mg PO QAM RF: 0 ferrous sulfate 325 mg (65 mg iron) tablet 325 mg PO QAM RF: 0 cyanocobalamin (vitamin B-12) 1,000 mcg tablet 1,000 mcg PO QAM Qty: 90 RF: 0 carvedilol [Coreg] 3.125 mg tablet 3.125 mg PO BIDM Qty: 180 RF: 1 lorazepam 0.5 mg tablet 0.5 mg PO HS PRN (Reason: Sleep) RF: 0 fluoxetine 20 mg tablet 40 mg PO QAM Qty: 270 RF: 1 cholecalciferol (vitamin D3) 5,000 unit Capsule 5,000 unit PO QAM RF: 0 Tradjenta 5 mg tablet 5 mg PO QAM RF: 0 acetaminophen [Pain Reliever] 500 mg tablet 500 mg PO Q8 PRN (Reason: pain) RF: 0 Discharge Orders: Discharge Order (Routine); Ordered 01/06/20 Ordered By: Lj Han Admission Data Admit Date/Time: 01/06/20 01:01 Attending Provider: Coco Rojas Admit Provider: Jhonathan Bates Primary Care Provider: Barbara Calles Other Providers: Kurt Lopez Other Interventions: Discharge Summary Assessment (RN) Last Done: 01/06/20 15:24 Supervising Physician Co-Signing Physician Notes Patient seen and examined with resident physician, Dr. Han. Agree with history, exam findings, assessment and plan of care as documented. Mr. Sydney hernandez is a 79 year old male with history of metastatic pancreatic cancer, CHF (EF 20-25% with dual chamber ICD) admitted with dyspnea and generalized weakness. He received 40mg IV lasix in the ED and diuresed well. On day of discharge he was weaned off O2 and did not have any dyspnea with walking at a brisk pace in the hallway. Denied dizziness with positional changes on the day of discharge. Will resume home lasix dosage on discharge. Other chronic issues were stable and home medications continued. Discharged home. Has appt with Dr. Celestin tomorrow. I personally spent 35 minutes discharge planning for this patient. Resident Activity Tracking Resident Involvement: Resident Care Provided Care Provided: Adult Hospital Medicine
--- NOTE | 2020-01-06 19:51 | Billing Data ---
Date of Service January 06, 2020 Coding Level of Care Code 08185 OBS Care - Level 3
[2020-01-06] MEDS ORDERED: ATORVASTATIN 40 MG TAB PO SCH (21:00)
[2020-01-06] MEDS ORDERED: TRAZODONE HCL 100 MG TAB PO SCH (21:00)
[2020-01-06] MEDS ORDERED: INSULIN GLARGINE SOLOSTAR 100 UNITS/ML 3 ML PEN SC SCH (21:00)
== END 2020-01-06 16:31 | disposition home or self-care (01) ==
LOC: ED 19:25 → 2N 01-06 01:01 → INTOOBSV 01-06 01:01 → SUATTDRO 01-06 01:01 → 2N 01-06 01:22

== ENCOUNTER 2020-03-17 10:12 | Observation (INO) ==
--- NOTE | 2020-03-17 10:44 | Emergency Department Note ---
History of Present Illness General Chief complaint: Shortness of Breath/Dyspnea Stated complaint: DIZZY, SHORT OF BREATH, WEAK Time Seen by Provider: 03/17/20 10:27 History of Present Illness Provider complaint: Shortness of breath Onset (ago): week(s) 1 (1.5) Location: chest Radiation: non-radiation Maximum Pain Intensity: 0 Associated symptoms: + headaches, + nausea/vomiting and + shortness of breath; no chest pain and no fever/chills 39-year-old male with history of pancreatic cancer presents emergency department for shortness of breath. Patient reports shortness of breath for the last week and a half. He reports no fevers. He also reports nausea and headache. Patient reports no loss of taste or smell. He reports no cough. No recent travel. No hemoptysis. Home Medications Medication Instructions Recorded Confirmed Type cholecalciferol (vitamin D3) 5,000 unit PO QAM 02/13/18 03/17/20 History cyanocobalamin (vitamin B-12) 1,000 mcg PO QAM #90 tab 09/18/18 03/17/20 History 1,000 mcg tablet ferrous sulfate 325 mg (65 mg 325 mg PO QAM tab 09/18/18 03/17/20 History iron) tablet aspirin 81 mg tablet,delayed 81 mg PO QAM tab 10/30/18 03/17/20 History release metformin 500 mg tablet,extended 1,000 mg PO BID #360 tab 05/17/19 03/17/20 Rx release 24 hr atorvastatin 40 mg tablet 40 mg PO HS #90 tab 08/02/19 03/17/20 Rx carvedilol 3.125 mg tablet 3.125 mg PO BIDM #180 tab 09/10/19 03/17/20 Rx lisinopril 2.5 mg tablet 2.5 mg PO QAM #90 tab 09/13/19 03/17/20 Rx lorazepam 0.5 mg tablet 0.5 mg PO HS PRN tab 11/05/19 03/17/20 History furosemide 40 mg tablet 40 mg PO QAM #90 tab 12/03/19 03/17/20 Rx docusate sodium 100 mg capsule 100 mg PO BID PRN 01/17/20 03/17/20 History pen needle, diabetic 31 gauge x #100 ea 02/05/20 02/28/20 Rx 09/13" fluoxetine 20 mg tablet 20 mg PO QAM #270 tab 02/24/20 03/17/20 Rx insulin glargine [Basaglar KwikPen 7 unit SUBCUT QAM 03/17/20 03/17/20 History U-100 Insulin] magnesium oxide 400 mg PO QAM 03/17/20 03/17/20 History tiotropium bromide [Spiriva 2 puff INHALATION QAM 03/17/20 03/17/20 History Respimat] Allergies Allergy/AdvReac Type Severity Reaction Status Date / Time Penicillins Allergy Mild 35 YRS AGO Verified 03/17/20 12:30 DEVELOPED RASH sertraline Allergy Unknown DID NOT Verified 03/17/20 12:30 TOLERATE MED Past Med/Surg History Medical History (Updated 03/17/20 @ 15:51 by Donaldo Dunbar) Asthmatic bronchitis BPH with obstruction/lower urinary tract symptoms CAD (coronary atherosclerotic disease) Cardiomyopathy, nonischemic s/p dual chamber AICD implantation 08/2017. EF 20-25% on most recent echo 06/2019. Chronic systolic CHF (congestive heart failure) Depression with anxiety DM2 (diabetes mellitus, type 2) Dyslipidemia Dyspnea on exertion Hepatic steatosis History of kidney stones HTN (hypertension) Hypoxia Hypoxia Insomnia Malignant neoplasm of pancreas With mets to lungs Mild sleep apnea Nephrolithiasis Non-sustained ventricular tachycardia Obesity, Class I, BMI 30-34.9 Osteoarthritis Psoriasis SOB (shortness of breath) Vitamin B12 deficiency Vitamin D deficiency Surgical History H/O arthroplasty ankle History of Achilles tendon repair LEFT History of arthroplasty of right knee History of cardiac cath x3 - all at [facility] - most recent beginning of 2017 r/t failed stress te sts - no stents/angioplasty 2017 - abn stress test - no stents/angioplasty 2016 - abd stress test - no stents/angioplasty History of cataract surgery B/L History of colonoscopy History of esophagogastroduodenoscopy (EGD) History of lithotripsy History of PTCA History of total knee replacement LEFT/RT Port-A-Cath in place (~08/28/19) Insertion of Mediport with Fluoroscopy(Right) - Tobin Schneider, DO, FACS 08/28/19 S/P internal cardiac defibrillator procedure (09/19/17) Dual-chamber Medtronic ICD, August 2017 (FOLLOWS WITH DR. BARAJAS) PLACED D/T IRREGULAR HEARTBEAT Family History Father Acute myocardial infarction Heart disease Myocardial infarction Mother Cancer Family history of diabetes mellitus Denies family history of Ovarian cancer Prostate cancer Breast cancer Colorectal cancer Social History Smoking Status: Never smoker Cigarettes Per Day: QUIT OVER 60YRS AGO; Second Hand Exposure: No; Hx Alcohol Use: No Hx Substance Use: No Preferred Language: Macedonian Communication Ability: Effective Visual Impairment: No Limitations Hearing Ability: Normal Wrecker Driver Required: No Beliefs That Will Affect Care: None marital status: Current Living Situation: Spouse current occupational status: retired Other Information That Helps Us Care for You: No Feels Safe at Home: Yes Safety Concerns: Feels Safe At This Time Childhood Exposure to Second-Hand Smoke: No caffeine: No during the past year weight has: remained stable Dental Care, Regularly: Yes Physical Activity Frequency: Daily Seatbelt Use: always Sunscreen Use: No Assistive Devices: Denture - Upper, Denture - Lower and Glasses Review of Systems A total of 10 systems reviewed and were otherwise negative Physical Exam Vital Signs Vital Signs - 24 hr 03/17/20 10:19 03/17/20 11:13 03/17/20 11:15 Temperature 36.3 C L Temperature Source Oral Pulse Rate 83 89 84 Pulse Rate [Apical] Pulse Rate from SpO2 Sensor 85 Respiratory Rate 22 7 L 23 Respiratory Effort / Characteristics Short of Breath SOB on Exertion Blood Pressure 96/58 L 97/65 L Blood Pressure [Left Arm] Blood Pressure Mean 70 74 Blood Pressure Mean [Left Arm] Blood Pressure Position Sitting Pulse Oximetry 96 94 Oxygen Delivery Method Room Air Sepsis Recent Fever Within 48 Hours No Sepsis New/Unexplained Change in Mental Status No Sepsis Action Taken by Nursing No Action Required 03/17/20 11:20 03/17/20 11:30 03/17/20 11:37 Temperature Temperature Source Pulse Rate 87 88 Pulse Rate [Apical] 81 Pulse Rate from SpO2 Sensor 84 88 Respiratory Rate 14 18 20 Respiratory Effort / Characteristics Blood Pressure 107/69 Blood Pressure [Left Arm] 107/69 Blood Pressure Mean 83 Blood Pressure Mean [Left Arm] 81 Blood Pressure Position Pulse Oximetry 95 91 95 Oxygen Delivery Method Room Air Sepsis Recent Fever Within 48 Hours Sepsis New/Unexplained Change in Mental Status Sepsis Action Taken by Nursing 03/17/20 11:39 03/17/20 11:40 03/17/20 11:50 Temperature Temperature Source Pulse Rate 89 80 Pulse Rate [Apical] Pulse Rate from SpO2 Sensor 86 81 Respiratory Rate 18 7 L 13 Respiratory Effort / Characteristics Non-Labored Blood Pressure Blood Pressure [Left Arm] Blood Pressure Mean Blood Pressure Mean [Left Arm] Blood Pressure Position Pulse Oximetry 95 96 94 Oxygen Delivery Method Room Air Sepsis Recent Fever Within 48 Hours Sepsis New/Unexplained Change in Mental Status Sepsis Action Taken by Nursing 03/17/20 12:00 03/17/20 12:10 03/17/20 12:20 Temperature Temperature Source Pulse Rate 83 95 H 86 Pulse Rate [Apical] Pulse Rate from SpO2 Sensor 93 H 95 H 88 Respiratory Rate 22 20 23 Respiratory Effort / Characteristics Blood Pressure 110/69 Blood Pressure [Left Arm] Blood Pressure Mean 86 Blood Pressure Mean [Left Arm] Blood Pressure Position Pulse Oximetry 94 98 96 Oxygen Delivery Method Sepsis Recent Fever Within 48 Hours Sepsis New/Unexplained Change in Mental Status Sepsis Action Taken by Nursing 03/17/20 12:30 03/17/20 12:40 03/17/20 12:50 Temperature Temperature Source Pulse Rate 82 86 88 Pulse Rate [Apical] Pulse Rate from SpO2 Sensor 82 87 88 Respiratory Rate 20 20 17 Respiratory Effort / Characteristics Blood Pressure 108/70 Blood Pressure [Left Arm] Blood Pressure Mean 79 Blood Pressure Mean [Left Arm] Blood Pressure Position Pulse Oximetry 100 96 98 Oxygen Delivery Method Sepsis Recent Fever Within 48 Hours Sepsis New/Unexplained Change in Mental Status Sepsis Action Taken by Nursing 03/17/20 13:00 03/17/20 13:10 03/17/20 13:20 Temperature Temperature Source Pulse Rate 94 H 110 H 74 Pulse Rate [Apical] Pulse Rate from SpO2 Sensor 92 H 110 H 74 Respiratory Rate 27 H 21 12 Respiratory Effort / Characteristics Blood Pressure 111/75 Blood Pressure [Left Arm] Blood Pressure Mean 83 Blood Pressure Mean [Left Arm] Blood Pressure Position Pulse Oximetry 94 95 94 Oxygen Delivery Method Sepsis Recent Fever Within 48 Hours Sepsis New/Unexplained Change in Mental Status Sepsis Action Taken by Nursing 03/17/20 13:30 03/17/20 13:40 03/17/20 13:50 Temperature Temperature Source Pulse Rate 83 Pulse Rate [Apical] Pulse Rate from SpO2 Sensor 84 81 82 Respiratory Rate 18 18 21 Respiratory Effort / Characteristics Blood Pressure 110/72 Blood Pressure [Left Arm] Blood Pressure Mean 88 Blood Pressure Mean [Left Arm] Blood Pressure Position Pulse Oximetry 96 94 97 Oxygen Delivery Method Sepsis Recent Fever Within 48 Hours Sepsis New/Unexplained Change in Mental Status Sepsis Action Taken by Nursing 03/17/20 14:00 03/17/20 14:01 03/17/20 14:10 Temperature Temperature Source Pulse Rate Pulse Rate [Apical] Pulse Rate from SpO2 Sensor 78 84 86 Respiratory Rate 14 16 20 Respiratory Effort / Characteristics Blood Pressure 110/67 Blood Pressure [Left Arm] Blood Pressure Mean 82 Blood Pressure Mean [Left Arm] Blood Pressure Position Pulse Oximetry 97 97 98 Oxygen Delivery Method Sepsis Recent Fever Within 48 Hours Sepsis New/Unexplained Change in Mental Status Sepsis Action Taken by Nursing 03/17/20 14:20 03/17/20 14:30 03/17/20 14:31 Temperature Temperature Source Pulse Rate Pulse Rate [Apical] Pulse Rate from SpO2 Sensor 73 86 86 Respiratory Rate 7 L 7 L 6 L Respiratory Effort / Characteristics Blood Pressure 119/77 Blood Pressure [Left Arm] Blood Pressure Mean 86 Blood Pressure Mean [Left Arm] Blood Pressure Position Pulse Oximetry 96 96 94 Oxygen Delivery Method Sepsis Recent Fever Within 48 Hours Sepsis New/Unexplained Change in Mental Status Sepsis Action Taken by Nursing 03/17/20 14:40 03/17/20 14:50 Temperature Temperature Source Pulse Rate Pulse Rate [Apical] Pulse Rate from SpO2 Sensor 76 82 Respiratory Rate 7 L 5 L Respiratory Effort / Characteristics Blood Pressure Blood Pressure [Left Arm] Blood Pressure Mean Blood Pressure Mean [Left Arm] Blood Pressure Position Pulse Oximetry 88 L 93 Oxygen Delivery Method Sepsis Recent Fever Within 48 Hours Sepsis New/Unexplained Change in Mental Status Sepsis Action Taken by Nursing Physical Exam GENERAL: He is oriented to person, place, and time. He appears well-developed and well-nourished. He does not appear distressed. HENT: Exam performed. - Head: Normocephalic and atraumatic. - Right Ear: External ear normal. No mastoid tenderness. - Left Ear: External ear normal. No mastoid tenderness. - Mouth/Throat: The oropharynx is clear and moist. No trismus in the jaw. No dental abscesses or uvula swelling. No oropharyngeal exudate or tonsillar abscesses. EYES: Conjunctivae and EOM are normal. Pupils are equal, round, and reactive to light. Right eye exhibits no discharge. Left eye exhibits no discharge. No scleral icterus. NECK: Normal range of motion. Neck supple. No JVD present. No spinous process tenderness present. No carotid bruit present. No rigidity. No tracheal deviation and normal range of motion present. No Brudzinski's sign and no Kernig's sign noted. CV: Normal rate, regular rhythm, normal heart sounds and intact distal pulses. There is no peripheral edema. Palpable radial pulses bue. PULM/CHEST: Mild inspiratory rales at the bases. ABD: The abdomen is soft. Bowel sounds are normal. He has no distension. No mass is present. There is no tenderness. There is no rebound, no guarding, no Kyle's sign and no tenderness at McBurney's point. Rovsig negative. MUSC/SKEL: Normal range of motion. There is no peripheral edema, tenderness or deformity. LYMPH: No cervical adenopathy. NEURO: He is alert and oriented to person, place, and time. He has normal streng th. No cranial nerve deficit or sensory deficit. Coordination and gait normal. GCS eye subscore is 4. GCS verbal subscore is 5. GCS motor subscore is 6. Cerebellar tests wnl. SKIN: Skin is warm and dry. He is not diaphoretic. PSYCH: He has a normal mood and affect. Behavior is normal. Judgment and thought content normal. Course Course 1027: The patient was evaluated in room C10. A complete history and physical exam was performed. Given the patient's history of dyspnea and being immunocompromised with pancreatic cancer, the patient was seen in full airborne precautions by myself and staff. N95's, gowns, face shield, gloves were worn by myself and staff. Patient will be tested for COVID-19. Cardiac monitoring: An order was placed for continuous cardiac monitoring. The monitor shows a rate of 75 with sinus rhythm 1230: No signs stable. Covid negative. Chest x-ray shows cardiomegaly with pulmonary edema and bibasilar densities. Patient be treated with Lasix 40 mg IV piggyback as well as cefepime and vancomycin. [facility]. Administered Medications Discontinued Medications Furosemide (Furosemide 40 Mg/4 Ml Vial) Confirm Administered Dose 40 mg IV .Racemi MED ONE Stop: 03/17/20 15:25 Last Admin: 03/17/20 15:26 Dose: 40 mg Documented by: [id number] Medical Decision Making Laboratory Data Result diagrams: 03/17/20 11:02 03/17/20 11:02 Lab Results 03/17/20 03/17/20 03/17/20 Range/Units 11:02 11: 11:02 WBC (4.8-10.8) K/uL RBC (4.7-6.1) M/uL Hgb (14.0-18.0) g/dL Hct (42-52) % MCV (80-100) fL MCH (25-34) pg MCHC (32-36) g/dL RDW Std Deviation (36.4-46.3) fL RDW Coeff of Skyler (11.5-14.5) % Plt Count (130-400) K/uL MPV (7.4-10.4) fL Immature Gran % (Auto) % Neut % (Auto) % Lymph % (Auto) % [place] % (Auto) % Eos % (Auto) % Baso % (Auto) % Neut # (Auto) (1.4-6.5) K/uL Lymph # (Auto) (1.2-3.4) K/uL [place] # (Auto) (0.11-0.59) K/uL Eos # (Auto) (0-0.5) K/uL Baso # (Auto) (0-0.2) K/uL Immature Gran # (Auto) (0.00-0.02) K/uL PT (9.0-12.0) Seconds INR (0.9-1.1) APTT (21.0-31.0) Seconds PTT Ratio VBG pH 7.41 (7.36-7.41) VBG pCO2 52 H (38-50) mmHg VBG pO2 21 mmHg VBG HCO3 33 mmol/L VBG O2 Saturation < 60.0 % VBG Base Excess 6.9 mEq/L Barometric Pressure 735.2 mm/Hg Sodium 141 (136-145) mmol/L Potassium 3.9 (3.5-5.1) mmol/L Chloride 104 (98-107) mmol/L Carbon Dioxide 32 (21-32) mmol/L Anion Gap 5.0 (3-11) BUN 18 (7-18) mg/dl Creatinine 1.08 (0.6-1.4) mg/dl Est Cr Clr Drug Dosing 60.7 ml/min Est GFR ( Amer) 75.3 Est GFR (Non-Af Amer) 64.9 BUN/Creatinine Ratio 17.0 (10-20) Glucose 181 H (70-99) mg/dl Lactate (0.4-2.0) mmol/L Calcium 9.3 (8.5-10.1) mg/dl Magnesium 1.8 (1.8-2.4) mg/dl Total Bilirubin 2.5 H (0.2-1) mg/dl AST 15 (15-37) U/L ALT 28 (12-78) U/L Alkaline Phosphatase 99 (45-117) U/L Troponin I 0.019 (0-0.045) ng/ml NT-Pro-B Natriuret Pep 8406 H (0-1800) pg/ml Total Protein 6.3 L (6.4-8.2) gm/dl Albumin 3.3 L (3.4-5.0) gm/dl Globulin 3.0 (2.5-4.0) gm/dl Albumin/Globulin Ratio 1.1 (0.9-2) Procalcitonin < 0.05 (0-0.5) ng/ml COVID-19 Eval Order Influ A Molecular Assay (Negative) Influ B Molecular Assay (Negative) SARS-CoV-2, RNA, NAAT (NEGATIVE) 03/17/20 03/17/20 03/17/20 Range/Units 11:02 11:02 11:02 WBC 8.77 (4.8-10.8) K/uL RBC 3.80 L (4.7-6.1) M/uL Hgb 10.4 L (14.0-18.0) g/dL Hct 34.6 L (42-52) % MCV 91.1 (80-100) fL MCH 27.4 (25-34) pg MCHC 30.1 L (32-36) g/dL RDW Std Deviation 62.1 H (36.4-46.3) fL RDW Coeff of Skyler 18.4 H (11.5-14.5) % Plt Count 227 (130-400) K/uL MPV 9.4 (7.4-10.4) fL Immature Gran % (Auto) 0.2 % Neut % (Auto) 86.5 % Lymph % (Auto) 4.7 % [place] % (Auto) 7.5 % Eos % (Auto) 1.1 % Baso % (Auto) 0.0 % Neut # (Auto) 7.58 H (1.4-6.5) K/uL Lymph # (Auto) 0.41 L (1.2-3.4) K/uL [place] # (Auto) 0.66 H (0.11-0.59) K/uL Eos # (Auto) 0.10 (0-0.5) K/uL Baso # (Auto) 0.00 (0-0.2) K/uL Immature Gran # (Auto) 0.02 (0.00-0.02) K/uL PT 12.4 H (9.0-12.0) Seconds INR 1.2 H (0.9-1.1) APTT 27.3 (21.0-31.0) Seconds PTT Ratio 1.0 VBG pH (7.36-7.41) VBG pCO2 (38-50) mmHg VBG pO2 mmHg VBG HCO3 mmol/L VBG O2 Saturation % VBG Base Excess mEq/L Barometric Pressure mm/Hg Sodium (136-145) mmol/L Potassium (3.5-5.1) mmol/L Chloride (98-107) mmol/L Carbon Dioxide (21-32) mmol/L Anion Gap (3-11) BUN (7-18) mg/dl Creatinine (0.6-1.4) mg/dl Est Cr Clr Drug Dosing ml/min Est GFR ( Amer) Est GFR (Non-Af Amer) BUN/Creatinine Ratio (10-20) Glucose (70-99) mg/dl Lactate 1.5 (0.4-2.0) mmol/L Calcium (8.5-10.1) mg/dl Magnesium (1.8-2.4) mg/dl Total Bilirubin (0.2-1) mg/dl AST (15-37) U/L ALT (12-78) U/L Alkaline Phosphatase (45-117) U/L Troponin I (0-0.045) ng/ml NT-Pro-B Natriuret Pep (0-1800) pg/ml Total Protein (6.4-8.2) gm/dl Albumin (3.4-5.0) gm/dl Globulin (2.5-4.0) gm/dl Albumin/Globulin Ratio (0.9-2) Procalcitonin (0-0.5) ng/ml COVID-19 Eval Order Influ A Molecular Assay (Negative) Influ B Molecular Assay (Negative) SARS-CoV-2, RNA, NAAT (NEGATIVE) 03/17/20 03/17/20 03/17/20 Range/Units 11:15 11:15 11:15 WBC (4.8-10.8) K/uL RBC (4.7-6.1) M/uL Hgb (14.0-18.0) g/dL Hct (42-52) % MCV (80-100) fL MCH (25-34) pg MCHC (32-36) g/dL RDW Std Deviation (36.4-46.3) fL RDW Coeff of Skyler (11.5-14.5) % Plt Count (130-400) K/uL MPV (7.4-10.4) fL Immature Gran % (Auto) % Neut % (Auto) % Lymph % (Auto) % [place] % (Auto) % Eos % (Auto) % Baso % (Auto) % Neut # (Auto) (1.4-6.5) K/uL Lymph # (Auto) (1.2-3.4) K/uL [place] # (Auto) (0.11-0.59) K/uL Eos # (Auto) (0-0.5) K/uL Baso # (Auto) (0-0.2) K/uL Immature Gran # (Auto) (0.00-0.02) K/uL PT (9.0-12.0) Seconds INR (0.9-1.1) APTT (21.0-31.0) Seconds PTT Ratio VBG pH (7.36-7.41) VBG pCO2 (38-50) mmHg VBG pO2 mmHg VBG HCO3 mmol/L VBG O2 Saturation % VBG Base Excess mEq/L Barometric Pressure mm/Hg Sodium (136-145) mmol/L Potassium (3.5-5.1) mmol/L Chloride (98-107) mmol/L Carbon Dioxide (21-32) mmol/L Anion Gap (3-11) BUN (7-18) mg/dl Creatinine (0.6-1.4) mg/dl Est Cr Clr Drug Dosing ml/min Est GFR ( Amer) Est GFR (Non-Af Amer) BUN/Creatinine Ratio (10-20) Glucose (70-99) mg/dl Lactate (0.4-2.0) mmol/L Calcium (8.5-10.1) mg/dl Magnesium (1.8-2.4) mg/dl Total Bilirubin (0.2-1) mg/dl AST (15-37) U/L ALT (12-78) U/L Alkaline Phosphatase (45-117) U/L Troponin I (0-0.045) ng/ml NT-Pro-B Natriuret Pep (0-1800) pg/ml Total Protein (6.4-8.2) gm/dl Albumin (3.4-5.0) gm/dl Globulin (2.5-4.0) gm/dl Albumin/Globulin Ratio (0.9-2) Procalcitonin (0-0.5) ng/ml COVID-19 Eval [facility] Influ A Molecular Assay Negative (Negative) Influ B Molecular Assay Negative (Negative) SARS-CoV-2, RNA, NAAT NEGATIVE (NEGATIVE) Imaging Data Radiologist's Impression: XR chest 1V portable HISTORY: SEPSIS COMPARISON: Chest CTA 01/05/2020. FINDINGS: No pneumothorax. No pleural effusions. The heart remains mildly enlarged. There is perihilar interstitial and vascular thickening suggestive of developing pulmonary edema. This has slightly progressed. Left-sided pacemaker/defibrillator. Right jugular Port-A-Cath terminates at the SVC. Small patchy bibasilar densities are also noted. IMPRESSION: 1. Cardiomegaly with developing mild pulmonary edema. 2. There are patchy bibasilar densities. This could represent atelectasis or pneumonia. ACT 112: Negative or not required by law. Electronically signed by: Martin Cisneros M.D. 03/17/2020 11:25 AM Dictated: 03/17/201122Transcribed: 03/17/201122 ECG Data Indication: + SOB/dyspnea Rate (beats per minute): 75 Rhythm: + normal sinus ECG Intervals/blocks: + First degree AV block, + Normal QRS and + Normal QT-c ECG ST segments: + Normal ST segments [facility] Narrative 1027: The patient was evaluated in room C10. A complete history and physical exam was performed. Given the patient's history of dyspnea and being immunocompromised with pancreatic cancer, the patient was seen in full airborne precautions by myself and staff. N95's, gowns, face shield, gloves were worn by myself and staff. Patient will be tested for COVID-19. Cardiac monitoring: An order was placed for continuous cardiac monitoring. The monitor shows a rate of 75 with sinus rhythm 1230: No signs stable. Covid negative. Chest x-ray shows cardiomegaly with pul monary edema and bibasilar densities. Patient be treated with Lasix 40 mg IV piggyback as well as cefepime and vancomycin. [facility] Impression & Plan Chronic systolic CHF (congestive heart failure) Discharge Plan Visit Data Chief Complaint: Shortness of Breath/Dyspnea Stated Complaint: DIZZY, SHORT OF BREATH, WEAK ED Provider: Donaldo Dunbar Discharge Problem: Chronic systolic CHF (congestive heart failure) Patient Disposition: Admitted As Inpatient Discharge Instructions Interventions: ED Discharge Assessment Last Done: 03/17/20 15:22 Forms Stand Alone Forms: [facility] Prescriptions Prescriptions: No Action metformin 500 mg tablet extended release 24 hr 1,000 mg PO BID Qty: 360 RF: 1 atorvastatin [Lipitor] 40 mg tablet 40 mg PO HS Qty: 90 RF: 1 lisinopril [Zestril] 2.5 mg tablet 2.5 mg PO QAM Qty: 90 RF: 1 Hold Instructions: low bp furosemide [Lasix] 40 mg tablet 40 mg PO QAM Qty: 90 RF: 1 (DME) pen needle, diabetic [BD Ultra-Fine Short Pen Needle] 31 gauge x 5/16" needle See Rx Instructions .ROUTE .MEDSUPPLY Qty: 100 RF: 1 aspirin 81 mg tablet,delayed release (DR/EC) 81 mg PO QAM RF: 0 ferrous sulfate 325 mg (65 mg iron) tablet 325 mg PO QAM RF: 0 cyanocobalamin (vitamin B-12) 1,000 mcg tablet 1,000 mcg PO QAM Qty: 90 RF: 0 carvedilol [Coreg] 3.125 mg tablet 3.125 mg PO BIDM Qty: 180 RF: 1 Hold Instructions: low bp lorazepam 0.5 mg tablet 0.5 mg PO HS PRN (Reason: Sleep) RF: 0 docusate sodium [Colace] 100 mg capsule 100 mg PO BID PRN (Reason: Constipation) RF: 0 fluoxetine 20 mg tablet 20 mg PO QAM Qty: 270 RF: 1 cholecalciferol (vitamin D3) 5,000 unit Capsule 5,000 unit PO QAM RF: 0 Basaglar KwikPen U-100 Insulin 100 unit/mL (3 mL) insulin pen 7 unit subcut QAM RF: 0 magnesium oxide 400 mg magnesium capsule 400 mg PO QAM RF: 0 Spiriva Respimat 2.5 mcg/actuation mist 2 puff inhalation QAM RF: 0 Referrals Referrals: Barbara Calles DO [Primary Care Provider] -
--- NOTE | 2020-03-17 11:27 | XRay Report ---
XR chest 1V portable HISTORY: SEPSIS COMPARISON: Chest CTA 01/05/2020. FINDINGS: No pneumothorax. No pleural effusions. The heart remains mildly enlarged. There is perihila r interstitial and vascular thickening suggestive of developing pulmonary edema. This has slightly pr ogressed. Left-sided pacemaker/defibrillator. Right jugular Port-A-Cath terminates at the SVC. Small patchy bibasilar densities are also noted. IMPRESSION: 1. Cardiomegaly with developing mild pulmonary edema. 2. There are patchy bibasilar densities. This could represent atelectasis or pneumonia. ACT 112: Negative or not required by law. Electronically signed by: Martin Cisneros M.D. 03/17/2020 11:25 AM
[2020-03-17 11:28] LABS: Eosinophils % (auto) 1.1 %; Hematocrit (blood only) 34.6 % (42-52); Hemoglobin 10.4 g/dL (14.0-18.0); Immature Granulocytes # (auto) 0.02 K/uL (0.00-0.02); Immature Granulocytes % (auto) 0.2 %; Lymphocytes # (auto) 0.41 K/uL (1.2-3.4); Lymphocytes % (auto) 4.7 %; Mean Corpuscular Hemoglobin 27.4 pg (25-34); Mean Corpuscular Hgb Conc 30.1 g/dL (32-36); Mean Corpuscular Volume 91.1 fL (80-100); Mean Platelet Volume 9.4 fL (7.4-10.4); Monocytes # (auto) 0.66 K/uL (0.11-0.59); Monocytes % (auto) 7.5 %; Neutrophils # (auto) 7.58 K/uL (1.4-6.5); Neutrophils % (auto) 86.5 %; Platelet Count 227 K/uL (130-400); RDW Coefficient of Variation 18.4 % (11.5-14.5); RDW Standard Deviation 62.1 fL (36.4-46.3); White Blood Count 8.77 K/uL (4.8-10.8)
[2020-03-17 11:30] LABS: Base Excess VBG 6.9 mEq/L; HCO3 VBG 33 mmol/L; PCO2 VBG 52 mmHg (38-50); PO2 VBG 21 mmHg; pH VBG 7.41 (7.36-7.41)
[2020-03-17 11:37] LABS: Oxygen Saturation VBG < 60.0 %
[2020-03-17 11:38] LABS: INR 1.2 (0.9-1.1); Partial Thromboplastin Time 27.3 Seconds (21.0-31.0); Prothrombin Time 12.4 Seconds (9.0-12.0)
[2020-03-17 11:44] LABS: Albumin Level 3.3 gm/dl (3.4-5.0); Calcium 9.3 mg/dl (8.5-10.1); Creatinine Clr Calc Pharmacy 60.7 ml/min; Est GFR (African American) 75.3; Est GFR (Non-African American) 64.9; Magnesium 1.8 mg/dl (1.8-2.4); Potassium 3.9 mmol/L (3.5-5.1)
[2020-03-17 12:00] LABS: Albumin Globulin Ratio 1.1 (0.9-2); Bilirubin,Total 2.5 mg/dl (0.2-1); Total Protein 6.3 gm/dl (6.4-8.2); Troponin I 0.019 ng/ml (0-0.045)
[2020-03-17 12:10] LABS: Influenza A virus by PCR Negative (Negative)
[2020-03-17 12:11] LABS: Influenza B virus by PCR Negative (Negative)
[2020-03-17] MEDS ORDERED: VANCOMYCIN HCL 1,500 MG in SODIUM CHLORIDE 0.9% 500 ML IV ONE (12:12)
[2020-03-17] MEDS ORDERED: CEFEPIME 2,000 MG/20 ML VIAL IV STA (12:12)
[2020-03-17] MEDS ORDERED: VANCOMYCIN CONSULT ACTIVE PRN (12:12)
[2020-03-17] MEDS ORDERED: FUROSEMIDE 40 MG/4 ML VIAL IV STA (12:13)
--- NOTE | 2020-03-17 12:34 | History & Physical Report ---
Date of Service March 17, 2020 Assessment & Plan (1) Shortness of breath: -Admit to MedSurg, observation -Checking CTA chest as has a h/o cavitary lesions lilkely mets to lung on previous CTA 12/2019 -Pulmonary consult -IV Lasix 40 mg in the ER, continue diuresis for suspected acute CHF e xacerbation -CXR reviewed - mild pulm edema, atelectasis vs pna - less likely infectious as pt has no other sx, covid-19 neg, flu neg, afebrile, no leukocytosis (2) Chronic systolic CHF (congestive heart failure): -Acute on chronic systolic CHF -Echo last completed on 07/22/2019 showing severely reduced systolic function with EF of 20-25%, severe global hypokinesis of the left ventricle, mild to moderate MR, right ventricular systolic pressure elevation at 30 to 40 mmHg -Patient administered IV Lasix 40 mg in the ER, continue with diuresis -BNP elevated 8406 -CXR reviewed showing pulmonary edema, patchy bibasilar densities representing atelectasis versus pneumonia - will check CT angio to r/o PE -Hold on antibiotics, did not get in the ER (pcn allergy), afebrile, no leukocytosis, PCT negative -COVID-19 and influenza negative -Currently maintaining on room air at 96% -daily weights, I/Os, low sodium diet (3) S/P internal cardiac defibrillator procedure: -Pacemaker-follows with Dr. Levine as an outpatient,-had a brief episode of nonsustained V. tach December 30, 2019 (4) Cardiomyopathy, nonischemic: -History of such-follows with Dr. Levine as an outpatient -With his history of dizziness, carvedilol was discontinued, as well as lisinopril. Patient has been tolerating Lasix 40 mg daily. (5) HTN (hypertension): -BP stable at 107/70, no antihypertensives as above (6) Dyslipidemia: -Continue atorvastatin (7) CAD (coronary atherosclerotic disease): Nonobstructive, never had any coronary intervention, continue atorvastat in, aspirin (8) Anemia: -Hemoglobin 10.4 on admission, appears to be around baseline, normocytic Could be secondary to chemotherapy -Continue iron supplementation p.o. 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 Nj as an outpt as well as Dr. Moon at [facility]- completed palliative course of gemcitabine and abraxane regimen 2 weeks ago. -Scheduled for follow-up with oncology on 03/24,? PET CT scan repeat? -Metastatic to lung -Pulm consult - multiple central cavitary lesions, R mid lung - appreciate recs -Cont spiriva inh -Consider palliative care consult (10) DM2 (diabetes mellitus, type 2): -Holding metformin -Continue Lantus 7 units every morning, ISS with Accu-Cheks ACHS - A1C= 8.9 in Dec 2019 (11) Vitamin D deficiency: -History of such (12) Vitamin B12 deficiency: -Continue supplementation (13) Depression with anxiety: -Continue Prozac 20 mg daily (14) Insomnia: Chronic issue Continue home trazodone, lorazepam Recently started on mirtazapine 15 mg at bedtime-we will continue this We will add on an extra dose of lorazepam 0.5 mg 4 hours after the first dose if needed for insomnia (15) BPH with obstruction/lower urinary tract symptoms: -UA appears clean, no symptoms DVT prophylaxis: - teds, scds CODE: Full code Dispo: From home, admit on observation, likely discharge tomorrow History of Present Illness Primary Care Provider: Barbara Calles DO This is a 79-year-old male with PMHx of pancreatic cancer diagnosed July 2019 with mets to the lung, chronic systolic CHF, CAD, nonischemic cardiomyopathy, HTN, HLD, DM type II, psoriasis, anemia, OA, depression with anxiety, BPH with L UTS, vitamin B12 and D deficiency who presents with acute onset of shortness of breath x 5-7days. He reports that he has had difficulty specifically with sleeping. He lies flat typically, denies any use of extra pillows at night to help him sleep. He just feels as if she cannot take him deep breaths. Patient denies any recent sick contacts, fever, chills or sweats, runny nose, congestion, sore throat, cough or sputum production. He is COVID-19 and influenza negative in the ER. Patient has been tolerating p.o. intake without any difficulty, no recent increase in weight, no swelling in his hands or feet. He denies any abdominal pain, nausea, vomiting, diarrhea, constipation. Patient admits to leading a sedentary lifestyle and not ambulating much. When he gets up to ambulate he does not often get dizzy, he has a cane and walker at home but admits to not using them. Recently has been taken off his Coreg and lisinopril by family doctor therefore is on no antihypertensives at this point. He did not take his Lasix earlier today, and 40 mg IV has been ordered in the ER. He is scheduled to have follow-up with Dr. Nj on 03/24, and completed last cycle of chemotherapy 2 weeks ago. Patient believes he is scheduled for repeat PET CTs. Lives at home with his . Allergies Allergy/AdvReac Type Severity Reaction Status Date / Time Penicillins Allergy Mild 35 YRS AGO Verified 03/17/20 12:30 DEVELOPED RASH sertraline Allergy Unknown DID NOT Verified 03/17/20 12:30 TOLERATE MED Home Medications Medication Instructions Recorded Confirmed Type cholecalciferol (vitamin D3) 5,000 unit PO QAM 02/13/18 03/17/20 History cyanocobalamin (vitamin B-12) 1,000 mcg PO QAM #90 tab 09/18/18 03/17/20 History 1,000 mcg tablet ferrous sulfate 325 mg (65 mg 325 mg PO QAM tab 09/18/18 03/17/20 History iron) tablet aspirin 81 mg tablet,delayed 81 mg PO QAM tab 10/30/18 03/17/20 History release metformin 500 mg tablet,extended 1,000 mg PO BID #360 tab 05/17/19 03/17/20 Rx release 24 hr atorvastatin 40 mg tablet 40 mg PO HS #90 tab 08/02/19 03/17/20 Rx lorazepam 0.5 mg tablet 0.5 mg PO HS PRN tab 11/05/19 03/17/20 History furosemide 40 mg tablet 40 mg PO QAM #90 tab 12/03/19 03/17/20 Rx docusate sodium 100 mg capsule 100 mg PO BID PRN 01/17/20 03/17/20 History pen needle, diabetic 31 gauge x #100 ea 02/05/20 02/28/20 Rx 5/16" fluoxetine 20 mg tablet 20 mg PO QAM #270 tab 02/24/20 03/17/20 Rx insulin glargine [Basaglar KwikPen 7 unit SUBCUT QAM 03/17/20 03/17/20 History U-100 Insulin] magnesium oxide 400 mg PO QAM 03/17/20 03/17/20 History mirtazapine 15 mg PO HS 03/17/20 03/17/20 History tiotropium bromide [Spiriva 2 puff INHALATION QAM 03/17/20 03/17/20 History Respimat] trazodone 100 mg PO HS 03/17/20 03/17/20 History Past Med/Surg History Medical History (Updated 03/17/20 @ 15:51 by Donaldo Dunbar) Asthmatic bronchitis BPH with obstruction/lower urinary tract symptoms CAD (coronary atherosclerotic disease) Cardiomyopathy, nonischemic s/p dual chamber AICD implantation 08/2017. EF 20-25% on most recent echo 06/2019. Chronic systolic CHF (congestive heart failure) Depression with anxiety DM2 (diabetes mellitus, type 2) Dyslipidemia Dyspnea on exertion Hepatic steatosis History of kidney stones HTN (hypertension) Hypoxia Hypoxia Insomnia Malignant neoplasm of pancreas With mets to lungs Mild sleep apnea Nephrolithiasis Non-sustained ventricular tachycardia Obesity, Class I, BMI 30-34.9 Osteoarthritis Psoriasis SOB (shortness of breath) Vitamin B12 deficiency Vitamin D deficiency Surgical History H/O arthroplasty ankle History of Achilles tendon repair LEFT History of arthroplasty of right knee History of cardiac cath x3 - all at [facility] - most recent beginning of 2017 r/t failed stress tests - no stents/angioplasty 2017 - abn stress test - no stents/angioplasty 2016 - abd stress test - no stents/angioplasty History of cataract surgery B/L History of colonoscopy History of esophagogastroduodenoscopy (EGD) History of lithotripsy History of PTCA History of total knee replacement LEFT/RT Port-A-Cath in place (~08/28/19) Insertion of Mediport with Fluoroscopy(Right) - Tobin Schneider DO, FACS 08/28/19 S/P internal cardiac defibrillator procedure (09/19/17) Dual-chamber Medtronic ICD, August 2017 (FOLLOWS WITH DR. LEVINE) PLACED D/T IRREGULAR HEARTBEAT Family History Father Acute myocardial infarction Heart disease Myocardial infarction Mother Cancer Family history of diabetes mellitus Denies family history of Ovarian cancer Prostate cancer Breast cancer Colorectal cancer Social History Smoking Status: Never smoker Cigarettes Per Day: QUIT OVER 60YRS AGO; Second Hand Exposure: No; Hx Alcohol Use: No Hx Substance Use: No Preferred Language: Kosovan Communication Ability: Effective Visual Impairment: No Limitations Hearing Ability: Normal Tow Feeder Required: No Beliefs That Will Affect Care: None marital status: Current Living Situation: Spouse current occupational status: retired Other Information That Helps Us Care for You: No Feels Safe at Home: Yes Safety Concerns: Feels Safe At This Time Childhood Exposure to Second-Hand Smoke: No caffeine: No during the past year weight has: remained stable Dental Care, Regularly: Yes Physical Activity Frequency: Daily Seatbelt Use: always Sunscreen Use: No Assistive Devices: Denture - Upper, Denture - Lower and Glasses Review of Systems Review of Systems: Constitutional: No fever, sweats or chills Eyes: No diplopia, no worsening or blurred vision ENT: normal hearing, no trouble swallowing Respiratory: As per HPI, + SOB Cardiovascular: + Dizziness/lightheadedness with ambulation at times, no chest pain, tightness or palpitations Abdomen: No pain, nausea, vomiting, diarrhea or constipation Musculoskeletal: No joint pain, calf pain, swelling Neurologic: No weakness, numbness/tingling, or balance problems Psychiatric: No anxiety or depression Skin: No rash or itch Physical Exam Physical Exam: General: awake, alert, no apparent distress, + pallor Head: Normocephalic, atraumatic ENT: PERRL, EOMI, no pharyngeal exudate, + mucous membranes dry Chest: on room air with O2 sats of 96%, + fine rales bibasilarly, worse in the left compared to the right, no rhonchi or wheeze. Cardiac: Regular rate and rhythm, + soft systolic murmur, no JVD, normal pamela pheral pulses, good capillary refill Abdominal: NABS x 4 quadrants, soft, nondistended, nontender to palpation, no rebound or guarding Extremities: Normal inspection, no peripheral edema or erythema, calfs nontender to palpation Psych: Normal mood and affect Neuro: AAO x 3, strength intact bilaterally and rated 5/5, no motor deficits, speech is clear, no peripheral sensory deficits Results & Data Results & Data ([facility]) Vital Signs (Past 12 Hours) Vital Signs Temp Pulse Pulse Resp BP BP Pulse Ox 03/17/20 11:39 18 95 03/17/20 11:37 81 20 107/69 95 03/17/20 10:19 36.3 C L 83 22 96/58 L 96 Diagnostic Findings XR chest 1V portable HISTORY: SEPSIS COMPARISON: Chest CTA 01/05/2020. FINDINGS: No pneumothorax. No pleural effusions. The heart remains mildly enlarged. There is perihilar interstitial and vascular thickening suggestive of developing pulmonary edema. This has slightly progressed. Left-sided pacemaker/defibrillator. Right jugular Port-A-Cath terminates at the SVC. Small patchy bibasilar densities are also noted. IMPRESSION: 1. Cardiomegaly with developing mild pulmonary edema. 2. There are patchy bibasilar densities. This could represent atelectasis or pneumonia. ECG Additional Comments: 17-MAR-2020 11:11:20 [facility]-EDSTAT ROUTINE RETRIEVAL Sinus rhythm with 1st degree A-V block Left axis deviation Nonspecific T wave abnormality Prolonged QT Abnormal ECG When compared with ECG of 05-JAN-2020 20:37, T wave inversion less evident in Lateral leads 25mm/s 10mm/mV 150Hz 9.0.9 12SL 241 JUSTICE: 13 Referred by: Barbara Calles Unconfirmed Vent. rate 75 BPM AL interval 212 ms QRS duration 116 ms QT/QTc 430/480 ms P-R-T axes 77 -63 127 Code Status & VTE Plan Code Status Full code-discussed with the patient and his via phone. He would not want life to be maintained by artificial means. Supervising Physician Co-Signing Physician Notes NICK Supervision Note: I personally saw and examined the patient. I verified all parmar points and agree with NICK Neville with the following exceptions and/or additions: Patient here with worsening shortness of breath and orthopnea over the last 5 to 7 days. Afebrile and no evidence of infectious causes. He had his last round of chemotherapy about 2 weeks ago and his hemoglobin is stable from previous. Not hypoxic and vitals are stable. Chest imaging with a CT angiogram the chest is negative for PE but shows multiple cavitary lesions as well as increasing pleural effusions. History and ROS reviewed-no urinary problems, no abdominal pain, no nausea or vomiting, no diarrhea or constipation. No fevers or chills or sweats, no headache or lightheadedness, no sore throat or loss of taste or smell. Vitals reviewed Gen: AAOx3, NAD HEENT: Anicteric sclerae, EOMI CV: RRR no mgr nl S1S2 Pulm: With bibasilar crackles Abd: +BS soft NT ND no masses or hernias Ext: No edema, 2+ DP pulses Skin: No rashes, warm/dry Neuro: Full strength throughout Laboratory values reviewed, ECG reviewed, chest imaging reviewed 79-year-old male here with increasing dyspnea, most likely secondary to combination of worsening pleural effusions and metastatic cancer to the lungs with cavitary lesions. Appreciate any further input from pulmonology as far as the pleural effusions in the findings on CT scan I do not think he needs any further antibiotics at this point unless pulmonology recommends to do so Continue to diurese with Lasix 40 mg IV once daily PG Care Time/CCT Total # of Minutes Spent Total Time Spent with Patient: Total time spent is greater than 50% in coordination of care (as documented) at patient's floor/unit and/or counseling patient: Coding Level of Care Code 96056 OBS Care - Level 3 Diagnoses Shortness of breath R06.02 Chronic systolic CHF (congestive heart failure) I50.22 S/P internal cardiac defibrillator procedure Z95.810 Cardiomyopathy, nonischemic I42.8 HTN (hypertension) I10 Dyslipidemia E78.5 CAD (coronary atherosclerotic disease) I25.10 Anemia D64.9 Malignant neoplasm of pancreas C25.9 DM2 (diabetes mellitus, type 2) E11.9 Vitamin D deficiency E55.9 Vitamin B12 deficiency E53.8 Depression with anxiety F41.8 Insomnia G47.00 BPH with obstruction/lower urinary tract symptoms N40.1; N13.8
[2020-03-17] MEDS ORDERED: FUROSEMIDE 40 MG/4 ML VIAL IV ONE (15:24)
[2020-03-17] MEDS ORDERED: ONDANSETRON INJ 2 MG/ML 2 ML VIAL IV PRN (16:40)
[2020-03-17] MEDS ORDERED: LORazepam 0.5 MG TAB PO PRN (16:40)
[2020-03-17] MEDS ORDERED: DEXTROSE 50% 50 ML SYRINGE IV PRN (16:40)
[2020-03-17] MEDS ORDERED: GLUCAGON FOR INJ 1 MG VIAL SQ PRN (16:40)
[2020-03-17] MEDS ORDERED: CARBOHYDRATES FOR HYPOGLYCEMIA PO PRN (16:40)
[2020-03-17] MEDS ORDERED: ACETAMINOPHEN 325 MG TAB PO PRN (16:40)
[2020-03-17] MEDS ORDERED: GLUCOSE 10 TABS/TUBE PO PRN (16:40)
[2020-03-17] MEDS ORDERED: GLUCOSE 40% GEL 15 GM TUBE PO PRN (16:40)
[2020-03-17] MEDS ORDERED: DOCUSATE SODIUM 100 MG CAP PO PRN (16:40)
[2020-03-17] MEDS ORDERED: OPTIRAY 320 125ml IV ONE (16:55)
--- NOTE | 2020-03-17 16:58 | Electrocardiogram Report ---
Test Reason : Blood Pressure : / mmHG Vent. Rate : 075 BPM Atrial Rate : 075 BPM P-R Int : 212 ms QRS Dur : 116 ms QT Int : 430 ms P-R-T Axes : 077 -63 127 degrees QTc Int : 480 ms Sinus rhythm with 1st degree A-V block Left axis deviation Nonspecific T wave abnormality Prolonged QT Abnormal ECG When compared with ECG of 05-JAN-2020 20:37, T wave inversion less evident in Lateral leads Confirmed by Jacky Garduno ([id number]) on 03/17/2020 4:58:23 PM Referred By: Barbara Calles Confirmed By:Jacky Garduno
--- NOTE | 2020-03-17 17:10 | CT Scan Report ---
CT angio chest PE protocol CT DOSE: 445.15 mGy.cm HISTORY: 79 years-old Male with PE. Acute hypoxia with chest pain. History of pancreatic carcinoma. TECHNIQUE: Multiple CTA images of the chest were obtained after the intravenous administration of 120 ml Optiray 320. Coronal and sagittal MIPS were obtained from the axial data set and were submitted for review. All measurements were obtained according to NASCET criteria. A dose lowering technique w as utilized adhering to the principles of ALARA. COMPARISON: Chest radiograph of same day, CT chest 01/05/2020, PET CT 01/01/2020 FINDINGS: CTA: Moderate cardiomegaly. Left subclavian pacer. Left heart structures are not well opacified secondary to contrast bolus timing. Moderate coronary artery calcifications. No thoracic aortic aneurysm. Reflu x of contrast into the IVC and hepatic veins. The pulmonary artery is opacified to the level of the p roximal segmental branches and demonstrates no filling defects to suggest thromboembolic disease. The distal segmental and subsegmental branches within the lung bases are not well opacified and are ther efore difficult to evaluate. CT CHEST: Unremarkable thyroid. Numerous prominent mediastinal lymph nodes with pathologically enlarged subcari nal lymph nodes measuring up to 1.7 cm. These findings appear stable from comparison. Right IJ Infuse -a-Port catheter distal tip terminates in the mid SVC. Small right and moderate left pleural effusions. No pneumothorax. Intralobular septal thickening with diffuse bilateral groundglass densities. Parenchymal calcifications of the left lung base redemonstr ated. Bilateral cavitary lung lesions are redemonstrated, largest of which measures 3.5 cm within the left lower lobe on image 131 series 4, previously measured at approximately 3 cm. 2.1 cm lesion of t he superior segment right lower lobe on image 168 series 4 previously measured 1.8 cm. 2.4 cm lesion of the right lower lobe on image 119 series 4 previously measured 2.2 cm. Airways appear patent. Bibasilar bronchial wall thickening with mild bibasilar opacities suggestive o f atelectasis. Lesion of the pancreatic tail is better seen on comparison studies. Calcified granulom yanely of the spleen. Unremarkable soft tissues. Degenerative changes of the shoulders and spine. IMPRESSION: 1. Cardiomegaly without evidence of pulmonary thromboembolic disease. 2. Small right and moderate left pleural effusions with bilateral intralobular septal thickening and groundglass opacities suggestive of pulmonary edema. 3. Mild progression of the cavitary pulmonary metastasis. 4. Stable mediastinal adenopathy. 5. The previously noted omental carcinomatosis and pancreatic tail lesion are better characterized on comparison PET/CT. ACT 112: Negative or not required by law. The above report was generated using voice recognition software. It may contain grammatical, syntax o r spelling errors. Electronically signed by: Keven Harry M.D. 03/17/2020 5:09 PM
[2020-03-17] MEDS: INSULIN ASPART 100 UNITS/ML 3 ML PEN SC SCH ×2 (17:22→20:31)
[2020-03-17] MEDS: ALBUT/IPRATROP 3MG/0.5MG NEB 3 ML VIAL NEB SCH ×3 (18:03→23:01)
[2020-03-17 18:42] LABS: Appearance Urine Clear (Clear); Bilirubin Urine Negative (Negative); Blood Urine Negative (Negative); Color Urine Yellow; Glucose Urine UA Negative (Negative); Ketones Urine Negative (Negative); Leukocyte Esterase Urine Negative (Negative); Nitrite Urine Negative (Negative); Protein Urine Negative (Negative); Urobilinogen Urine Negative (Negative); pH Urine 7.5 (4.5-7.5)
[2020-03-17] MEDS ORDERED: FUROSEMIDE 40 MG in SYRINGE 0 ML IV ONE (18:45)
[2020-03-17] MEDS ORDERED: traZODone HCL 100 MG TAB PO SCH (21:00)
[2020-03-17] MEDS ORDERED: MIRTAZAPINE TAB 15 MG TAB PO SCH (21:00)
[2020-03-17] MEDS ORDERED: ATORVASTATIN 40 MG TAB PO SCH (21:00)
[2020-03-18] MEDS: ALBUT/IPRATROP 3MG/0.5MG NEB 3 ML VIAL NEB SCH ×3 (02:58→10:57)
[2020-03-18] MEDS: INSULIN ASPART 100 UNITS/ML 3 ML PEN SC SCH ×2 (08:34→12:16)
[2020-03-18] MEDS ORDERED: MAGNESIUM OXIDE 400 MG TAB PO SCH (09:00)
[2020-03-18] MEDS ORDERED: INSULIN GLARGINE SOLOSTAR 100 UNITS/ML 3 ML PEN SQ SCH (09:00)
[2020-03-18] MEDS ORDERED: FLUoxetine HCL 20 MG CAP PO SCH (09:00)
[2020-03-18] MEDS ORDERED: FERROUS SULFATE 325 MG TAB PO SCH (09:00)
[2020-03-18] MEDS ORDERED: CYANOCOBALAMIN 500 MCG TABLET (VITAMIN B-12) PO SCH (09:00)
[2020-03-18] MEDS ORDERED: FUROSEMIDE 40 MG TAB PO SCH (09:00)
[2020-03-18] MEDS ORDERED: CHOLECALCIFEROL 1,000 UNITS 25 MCG TAB PO SCH (09:00)
[2020-03-18] MEDS ORDERED: FUROSEMIDE 40 MG in SYRINGE 0 ML IV SCH (09:00)
[2020-03-18] MEDS ORDERED: UMECLIDINIUM BROMIDE 62.5MCG/BLISTER 7 PUFFS/INHALER INH SCH (09:00)
[2020-03-18] MEDS ORDERED: ASPIRIN 81 MG ECTAB PO SCH (09:00)
[2020-03-18 09:05] LABS: Hematocrit (blood only) 31.6 % (42-52); Hemoglobin 9.8 g/dL (14.0-18.0); Mean Corpuscular Volume 90.3 fL (80-100); Platelet Count 189 K/uL (130-400); RDW Coefficient of Variation 18.2 % (11.5-14.5); RDW Standard Deviation 60.2 fL (36.4-46.3); White Blood Count 7.28 K/uL (4.8-10.8)
[2020-03-18 09:17] LABS: BUN Creatinine Ratio 16.3 (10-20); Calcium 8.9 mg/dl (8.5-10.1); Creatinine Clr Calc Pharmacy 53.8 ml/min; Est GFR (African American) 66.3; Est GFR (Non-African American) 57.2; Magnesium 1.8 mg/dl (1.8-2.4); Potassium 3.1 mmol/L (3.5-5.1)
[2020-03-18 09:22] LABS: Albumin Globulin Ratio 0.9 (0.9-2); Bilirubin,Total 2.5 mg/dl (0.2-1); Globulin 3.3 gm/dl (2.5-4.0); Phosphorus 3.1 mg/dl (2.5-4.9); Total Protein 6.3 gm/dl (6.4-8.2)
--- NOTE | 2020-03-18 12:18 | Hospitalist Progress Note ---
Date of Service March 18, 2020 Assessment & Plan (1) Shortness of breath: -Admit to MedSurg, observation -Checking CTA chest as has a h/o cavitary lesions lilkely mets to lung on previous CTA 12/2019 -Pulmonary consult -IV Lasix 40 mg in the ER, continue diuresis for suspected acute CHF ex acerbation -CXR reviewed - mild pulm edema, atelectasis vs pna - less likely infectious as pt has no other sx, covid-19 neg, flu neg, afebrile, no leukocytosis (2) Chronic systolic CHF (congestive heart failure): -Acute on chronic systolic CHF -Echo last completed on 07/22/2019 showing severely reduced systolic function with EF of 20-25%, severe global hypokinesis of the left ventricle, mild to moderate MR, right ventricular systolic pressure elevation at 30 to 40 mmHg -Patient administered IV Lasix 40 mg in the ER, continue with diuresis -BNP elevated 8406 -CXR reviewed showing pulmonary edema, patchy bibasilar densities representing atelectasis versus pneumonia - will check CT angio to r/o PE -Hold on antibiotics, did not get in the ER (pcn allergy), afebrile, no leukocytosis, PCT negative -COVID-19 and influenza negative -Currently maintaining on room air at 96% -daily weights, I/Os, low sodium diet (3) S/P internal cardiac defibrillator procedure: -Pacemaker-follows with Dr. Levine as an outpatient,-had a brief episode of nonsustained V. tach December 30, 2019 (4) Cardiomyopathy, nonischemic: -History of such-follows with Dr. Levine as an outpatient -With his history of dizziness, carvedilol was discontinued, as well as lisinopril. Patient has been tolerating Lasix 40 mg daily. (5) HTN (hypertension): -BP stable at 107/70, no antihypertensives as above (6) Dyslipidemia: -Continue atorvastatin (7) CAD (coronary atherosclerotic disease): Nonobstructive, never had any coronary intervention, continue atorvastati n, aspirin (8) Anemia: -Hemoglobin 10.4 on admission, appears to be around baseline, normocytic Could be secondary to chemotherapy -Continue iron supplementation p.o. 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 Nj as an outpt as well as Dr. Moon at [facility]- completed palliative course of gemcitabine and abraxane regimen 2 weeks ago. -Scheduled for follow-up with oncology on 03/24,? PET CT scan repeat? -Metastatic to lung -Pulm consult - multiple central cavitary lesions, R mid lung - appreciate recs -Cont spiriva inh -Consider palliative care consult (10) DM2 (diabetes mellitus, type 2): -Holding metformin -Continue Lantus 7 units every morning, ISS with Accu-Cheks ACHS - A1C= 8.9 in Dec 2019 (11) Vitamin D deficiency: -History of such (12) Vitamin B12 deficiency: -Continue supplementation (13) Depression with anxiety: -Continue Prozac 20 mg daily (14) Insomnia: Chronic issue Continue home trazodone, lorazepam Recently started on mirtazapine 15 mg at bedtime-we will continue this We will add on an extra dose of lorazepam 0.5 mg 4 hours after the first dose if needed for insomnia (15) BPH with obstruction/lower urinary tract symptoms: -UA appears clean, no symptoms DVT prophylaxis: - kieran herron CODE: Full code Dispo: From home, admit on observation, likely discharge tomorrow Admission and Anticipated Discharge Date Admission Date: March 17, 2020 Results & Data Results & Data ([facility]) Vital Signs (Past 12 Hours) Vital Signs Temp Pulse Resp BP BP Pulse Ox 03/18/20 10:59 101 H 16 96 03/18/20 07:41 89 16 95 03/18/20 07:22 97.5 F L 86 16 104/69 94 03/18/20 04:00 97.9 F 82 18 100/62 98 PG Care Time/CCT Total # of Minutes Spent Total Time Spent with Patient: Total time spent is greater than 50% in coordination of care (as documented) at patient's floor/unit and/or counseling patient: Coding Diagnoses Shortness of breath R06.02 Chronic systolic CHF (congestive heart failure) I50.22 S/P internal cardiac defibrillator procedure Z95.810 Cardiomyopathy, nonischemic I42.8 HTN (hypertension) I10 Dyslipidemia E78.5 CAD (coronary atherosclerotic disease) I25.10 Anemia D64.9 Malignant neoplasm of pancreas C25.9 DM2 (diabetes mellitus, type 2) E11.9 Vitamin D deficiency E55.9 Vitamin B12 deficiency E53.8 Depression with anxiety F41.8 Insomnia G47.00 BPH with obstruction/lower urinary tract symptoms N40.1; N13.8
--- NOTE | 2020-03-18 17:04 | Discharge Summary ---
Date of Service March 18, 2020 Admission HPI Per Admitting Provider This is a 79-year-old male with PMHx of pancreatic cancer diagnosed July 2019 with mets to the lung, chronic systolic CHF, CAD, nonischemic cardiomyopathy, HTN, HLD, DM type II, psoriasis, anemia, OA, depression with anxiety, BPH with LUTS, vitamin B12 and D deficiency who presents with acute onset of shortness of breath x 5-7days. He reports that he has had difficulty specifically with sleeping. He lies flat typically, denies any use of extra pillows at night to help him sleep. He just feels as if she cannot take him deep breaths. Patient denies any recent sick contacts, fever, chills or sweats, runny nose, congestion, sore throat, cough or sputum production. He is COVID-19 and influenza negative in the ER. Patient has been tolerating p.o. intake without any difficulty, no recent increase in weight, no swelling in his hands or feet. He denies any abdominal pain, nausea, vomiting, diarrhea, constipation. Patient admits to leading a sedentary lifestyle and not ambulating much. When he gets up to ambulate he does not often get dizzy, he has a cane and walker at home but admits to not using them. Recently has been taken off his Coreg and lisinopril by family doctor therefore is on no antihypertensives at this point. He did not take his Lasix earlier today, and 40 mg IV has been ordered in the ER. He is scheduled to have follow-up with Dr. Nj on 03/24, and completed last cycle of chemotherapy 2 weeks ago. Patient believes he is scheduled for repeat PET CTs. Lives at home with his . Principal Diagnosis hfref, resolved metastatic pancreatic cancer Discharge Exam The patient appeared well Vital signs as documented. Lungs decreased breath sounds at his left base consistent with his pleural effusion Cardiac exam, Rhythm is regular.. Systolic ejection murmur is heard Abdominal exam reveals normal bowel sounds, soft non tender, no masses Extremities are nonedematous and both pedal pulses are normal. Neurologic exam is alert and oriented, no focal loss of strength or sensation Skin is without bruises or rashes Psychologically is without concerns for anxiety or depression. Discharge Data Allergies Allergy/AdvReac Type Severity Reaction Status Date / Time Penicillins Allergy Mild 35 YRS AGO Verified 03/17/20 12:30 DEVELOPED RASH sertraline Allergy Unknown DID NOT Verified 03/17/20 12:30 TOLERATE MED Consultations 03/17/20 12:28 ED Decision to Admit Stat 03/17/20 16:40 Consult Case Management - Discharge Planning Routine 03/18/20 13:00 [facility] [place] CHF Program Referral Routine Ordered Studies 03/17/20 16:40 CT angio chest PE protocol Stat Hospital Course (1) Shortness of breath: -Likely related to heart failure reduced ejection fraction improved dramatically with dosing of Lasix. -IV Lasix 40 mg in the ER, -CXR reviewed - mild pulm edema, atelectasis vs pna - less likely infectious as pt has no other sx, covid-19 neg, flu neg, afebrile, no leukocytosis Patient will have his Lasix increased to 60 mg a day. He was also connected with the heart failure clinic I spoke to Tracy Guerra who will follow the patient as an outpatient. CT chest with contrast 03/18/2020 IMPRESSION: 1. Cardiomegaly without evidence of pulmonary thromboembolic disease. 2. Small right and moderate left pleural effusions with bilateral intralobular septal thickening and groundglass opacities suggestive of pulmonary edema. 3. Mild progression of the cavitary pulmonary metastasis. 4. Stable mediastinal adenopathy. 5. The previously noted omental carcinomatosis and pancreatic tail lesion are better characterized on comparison PET/CT. (2) Chronic systolic CHF (congestive heart failure): -Acute on chronic systolic CHF -Echo last completed on 07/22/2019 showing severely reduced systolic function with EF of 20-25%, severe global hypokinesis of the left ventricle, mild to moderate MR, right ventricular systolic pressure elevation at 30 to 40 mmHg -Patient administered IV Lasix 40 mg in the ER, increase oral lasix to 60 mg a day, labs checked on tuesday 03/20, follow up with pcp and cardiology along with oncology -COVID-19 and influenza negative -has continued with good room air saturations (3) S/P internal cardiac defibrillator procedure: -Pacemaker-follows with Dr. Levine as an outpatient,-had a brief episode o f nonsustained V. tach December 30, 2019 (4) Cardiomyopathy, nonischemic: -History of such-follows with Dr. Levine as an outpatient -will follow up with heart failure clinic (5) HTN (hypertension): -BP stable at 107/70, no antihypertensives as above (6) Dyslipidemia: -Continue atorvastatin (7) CAD (coronary atherosclerotic disease): Nonobstructive, never had any coronary intervention, continue atorvastatin, aspirin (8) Anemia: -Hemoglobin 10.4 on admission, appears to be around baseline, normocytic secondary to chemotherapy and chronic disease -Continue iron supplementation p.o. (9) Malignant neoplasm of pancreas: -History of such diagnosed July 2019, stage IV mucinous adenocarcinoma -follows with Dr. Nj as an outpt as well as Dr. Moon at [facility]- completed palliative course of gemcitabine and abraxane regimen 2 weeks ago. -Scheduled for follow-up with oncology on 03/24,? PET CT scan repeat? -Metastatic to lung -Pulm consult - multiple central cavitary lesions, R mid lung - appreciate recs -Cont spiriva inh -Consider palliative care consult (10) DM2 (diabetes mellitus, type 2): restart metformin -Continue Lantus 7 units every morning, ISS with Accu-Cheks ACHS - A1C= 8.9 in Dec 2019 (11) Vitamin D deficiency: -History of such (12) Vitamin B12 deficiency: -Continue supplementation (13) Depression with anxiety: -Continue Prozac 20 mg daily (14) Insomnia: Chronic issue Continue home trazodone, lorazepam Recently started on mirtazapine 15 mg at bedtime-we will continue this We will add on an extra dose of lorazepam 0.5 mg 4 hours after the first dose if needed for insomnia (15) BPH with obstruction/lower urinary tract symptoms: -UA appears clean, no symptoms CODE: Full code Total Time Total Time Spent Total Time Spent (In Minutes): This is an observational discharge I did speak to the patient's prior to discharge and all along with heart failure clinic Discharge Plan Discharge Items Patient Disposition: Home - Self-Care Reason For Visit: SOB Discharge Diagnosis: shortness of breath , congestive heart failure, metastatic lung cancer Activity: Resume your previous activity Non-emergency contact: Primary Care Provider Call non-emergency contact if: you have any medication questions Follow-up/Referrals: Barbara Calles DO [Primary Care Provider] - 03/30/20 9:20 am (You have a follow up appt with your PCP Monday at 920am. Please arrive 15 minutes prior to your appt. It is important that you keep this appt, if it does not fit your schedule please call [phone] to reschedule ) Andreia Guerra PA-C [Physician Machine Cementer] - 03/25/20 2:00 pm (Please have follow up labs drawn on Friday 03/23 or Saturday 03/24. Congestive Heart Failure Program Appointment Information Early follow up is essential to managing your heart failure. An appointment has been scheduled for you with the [facility] Heart Failure Program within 7 days of discharge. Anticipate this visit to be 30-60 minutes long. Please expect a business systems consultant phone call from one of our nurses approximately 48 hours from discharge. They will also be placing an order for lab work to be completed 1-2 days prior to your heart failure follow up appointment. Please be sure to have this done so we can go over the results when you come in. Office Location The cardiology office building is located in front of the hospital at [address] Bring the following with you to your follow-up doctor appointments: Please bring your daily weight log any discharge paperwork all of your medication bottles with you to this visit. ) Diet: Carb Consistent or DM2 and Low Sodium (2gm) Ambulatory Orders: Basic Metabolic Panel (Routine) Timeframe: 2 Days Location: Determined by Patient Ordered By: Austyn Hooks Attending Provider Instructions: please continue on a low salt diabetic diet please only drink fliuds if you are thirsty please have blood work on tuesday 03/20 to check you kidneys and potassium Pending Studies at Discharge: No Stand-Alone Forms: [facility] C[facility] Medications and DC Order Prescriptions: New furosemide [Lasix] 40 mg tablet 60 mg PO QAM Qty: 120 RF: 1 Continued metformin 500 mg tablet extended release 24 hr 1,000 mg PO BID Qty: 360 RF: 1 atorvastatin [Lipitor] 40 mg tablet 40 mg PO HS Qty: 90 RF: 1 aspirin 81 mg tablet,delayed release (DR/EC) 81 mg PO QAM RF: 0 ferrous sulfate 325 mg (65 mg iron) tablet 325 mg PO QAM RF: 0 cyanocobalamin (vitamin B-12) 1,000 mcg tablet 1,000 mcg PO QAM Qty: 90 RF: 0 lorazepam 0.5 mg tablet 0.5 mg PO HS PRN (Reason: Sleep) RF: 0 docusate sodium [Colace] 100 mg capsule 100 mg PO BID PRN (Reason: Constipation) RF: 0 fluoxetine 20 mg tablet 20 mg PO QAM Qty: 270 RF: 1 cholecalciferol (vitamin D3) 5,000 unit Capsule 5,000 unit PO QAM RF: 0 Basaglar KwikPen U-100 Insulin 100 unit/mL (3 mL) insulin pen 7 unit subcut QAM RF: 0 magnesium oxide 400 mg magnesium capsule 400 mg PO QAM RF: 0 Spiriva Respimat 2.5 mcg/actuation mist 2 puff inhalation QAM RF: 0 trazodone 100 mg tablet 100 mg PO HS RF: 0 mirtazapine 15 mg tablet 15 mg PO HS RF: 0 Discontinued furosemide [Lasix] 40 mg tablet 40 mg PO QAM Qty: 90 RF: 1 No Action (DME) pen needle, diabetic [BD Ultra-Fine Short Pen Needle] 31 gauge x 5/16" needle See Rx Instructions .ROUTE .MEDSUPPLY Qty: 100 RF: 1 Discharge Orders: Discharge Order (Routine); Ordered 03/18/20 Ordered By: Austyn Cueva Admission Data Admit Date/Time: 03/17/20 13:47 Attending Provider: Austyn Cueva Admit Provider: Jyoti Perez Primary Care Provider: Barbara Calles Other Providers: Jyoti Perez ; Andreia Guerra Other Interventions: Discharge Summary Assessment (RN) Last Done: 03/18/20 13:33 Coding Level of Care Code 28839 OBS Care - Discharge Diagnoses Shortness of breath R06.02 Chronic systolic CHF (congestive heart failure) I50.22 S/P internal cardiac defibrillator procedure Z95.810 Cardiomyopathy, nonischemic I42.8 HTN (hypertension) I10 Dyslipidemia E78.5 CAD (coronary atherosclerotic disease) I25.10 Anemia D64.9 Malignant neoplasm of pancreas C25.9 DM2 (diabetes mellitus, type 2) E11.9 Vitamin D deficiency E55.9 Vitamin B12 deficiency E53.8 Depression with anxiety F41.8 Insomnia G47.00 BPH with obstruction/lower urinary tract symptoms N40.1; N13.8
== END 2020-03-18 14:52 | disposition home or self-care (01) ==
LOC: 2W 10:12 → ED 10:12 → SUATTDRO 13:47 → 2W 15:22

== ENCOUNTER 2020-05-24 07:10 | Observation (INO) ==
[2020-05-24] MEDS ORDERED: MoRPHine SULFATE 2 MG/ML CARP IV STA ×2 (07:36→09:16)
[2020-05-24] MEDS ORDERED: SODIUM CHLORIDE 0.9% 1000ML 1,000 ML IV SCH (07:45)
--- NOTE | 2020-05-24 07:48 | Emergency Department Note ---
History of Present Illness General Chief complaint: Weakness Stated complaint: WEAKNESS Time Seen by Provider: 05/24/20 07:26 Source: patient Mode of arrival: ambulatory Limitations: no limitations History of Present Illness Provider complaint: Generalized weakness Maximum Pain Intensity: 9 This is a 39-year-old male who presents to the ED with a chief complaint of generalized weakness and feeling sore all over. He also reports some nausea and shortness of breath. The patient states that his mouth feels dry. He feels like he is dehydrated. He is not sleeping well. The patient states that he is currently undergoing chemotherapy for pancreatic cancer. He states that he did not receive his last treatment because of anemia. The patient states that he also recently had a stent removed after having had it placed for a kidney stone. This was removed about 4 days ago. He reports decreased appetite. Home Medications Medication Instructions Recorded Confirmed Type cholecalciferol (vitamin D3) 5,000 unit PO QAM 02/13/18 05/24/20 History cyanocobalamin (vitamin B-12) 1,000 mcg PO QAM #90 tab 09/18/18 05/24/20 History 1,000 mcg tablet ferrous sulfate 325 mg (65 mg 325 mg PO QAM tab 09/18/18 05/24/20 History iron) tablet aspirin 81 mg tablet,delayed 81 mg PO QAM tab 10/30/18 05/24/20 History release metformin 500 mg tablet,extended 1,000 mg PO BID #360 tab 05/17/19 05/24/20 Rx release 24 hr atorvastatin 40 mg tablet 40 mg PO HS #90 tab 08/02/19 05/24/20 Rx docusate sodium 100 mg capsule 100 mg PO BID PRN 01/17/20 05/24/20 History fluoxetine 20 mg tablet 20 mg PO QAM #270 tab 02/24/20 05/24/20 Rx magnesium oxide 400 mg PO QAM 03/17/20 05/24/20 History insulin aspart U-100 100 unit/mL See Rx Instructions .ROUTE 03/25/20 05/24/20 Rx (3 mL) subcutaneous pen .COMPLEX #15 ml blood sugar diagnostic #200 ea 04/01/20 05/15/20 Rx blood-glucose meter #1 ea 04/01/20 05/15/20 Rx lancets 30 gauge #200 ea 04/01/20 05/15/20 Rx pen needle, diabetic 31 gauge x #100 ea 04/01/20 05/15/20 Rx 5/16" insulin glargine 100 unit/mL (3 7 unit SUBCUT QAM ml 04/22/20 05/24/20 History mL) subcutaneous pen furosemide [Lasix] 40 mg PO QAM 05/06/20 05/24/20 History melatonin 9 mg PO HS 05/06/20 05/24/20 History polyethylene glycol 3350 [Miralax] 17 g PO DAILY PRN #30 ea 05/08/20 05/24/20 Rx dronabinol 2.5 mg capsule 5 mg PO BID #60 cap 05/15/20 05/24/20 Rx acetaminophen [Tylenol Extra 500 mg PO Q6H PRN 05/24/20 05/24/20 History Strength] Allergies Allergy/AdvReac Type Severity Reaction Status Date / Time Penicillins Allergy Mild 35 YRS AGO Verified 05/24/20 08:51 DEVELOPED RASH sertraline Allergy Unknown DID NOT Verified 05/24/20 08:51 TOLERATE MED Past Med/Surg History Medical History Anemia Asthmatic bronchitis BPH with obstruction/lower urinary tract symptoms CAD (coronary atherosclerotic disease) Cardiomyopathy, nonischemic s/p dual chamber AICD implantation 08/2017. EF 20-25% on most recent echo 06/2019. Chronic systolic CHF (congestive heart failure) Depression with anxiety DM2 (diabetes mellitus, type 2) Dyslipidemia Dyspnea on exertion Hepatic steatosis History of kidney stones HTN (hypertension) Hypoxia Hypoxia Insomnia Malignant neoplasm of pancreas With mets to lungs Malnutrition Mild sleep apnea Nephrolithiasis Non-sustained ventricular tachycardia Obesity, Class I, BMI 30-34.9 Osteoarthritis Psoriasis SOB (shortness of breath) Vitamin B12 deficiency Vitamin D deficiency Surgical History H/O arthroplasty ankle History of Achilles tendon repair LEFT History of arthroplasty of right knee History of cardiac cath x3 - all at [facility] - most recent beginning of 2017 r/t failed stress tests - no stents/angioplasty 2017 - abn stress test - no stents/angioplasty 2016 - abd stress test - no stents/angioplasty History of cataract surgery B/L History of colonoscopy History of esophagogastroduodenoscopy (EGD) History of lithotripsy History of PTCA History of total knee replacement LEFT/RT Port-A-Cath in place (~08/28/19) Insertion of Mediport with Fluoroscopy(Right) - Tobin Schneider DO, FACS 08/28/19 S/P internal cardiac defibrillator procedure (09/19/17) Dual-chamber Medtronic ICD, August 2017 (FOLLOWS WITH DR. BARAJAS) PLACED D/T IRREGULAR HEARTBEAT Family History Father Acute myocardial infarction Heart disease Myocardial infarction Mother Cancer Family history of diabetes mellitus Denies family history of Ovarian cancer Prostate cancer Breast cancer Colorectal cancer Social History Smoking Status: Former smoker Tobacco Type: Cigarettes Cigarettes Per Day: QUIT OVER 60YRS AGO; Second Hand Exposure: No; Hx Alcohol Use: No Hx Substance Use: Yes Last Used Substance: Days (ago) Last Used Substance Other:: 05/06/20 uses tablet Preferred Language: Kyrgyz Communication Ability: Effective Visual Impairment: No Limitations Hearing Ability: Normal [place] Required: No Beliefs That Will Affect Care: None marital status: Current Living Situation: Spouse current occupational status: retired Feels Safe at Home: Yes Childhood Exposure to Second-Hand Smoke: No caffeine: No during the past year weight has: remained stable Dental Care, Regularly: Yes Physical Activity Frequency: Daily Seatbelt Use: always Sunscreen Use: No Assistive Devices: Denture - Upper, Denture - Lower and Glasses Review of Systems A total of 10 systems reviewed and were otherwise negative Physical Exam Vital Signs Vital Signs - 24 hr 05/24/20 07:18 05/24/20 08:02 05/24/20 08:06 Temperature 36 C L Temperature Source Temporal Artery Scan Pulse Rate 92 H 82 Pulse Rate [Left] 77 Respiratory Rate 18 18 18 Respiratory Effort / Characteristics Non-Labored Spontaneous Respiratory Depth Normal Respiratory Pattern Regular Blood Pressure 85/49 L Blood Pressure [Left Arm] 88/57 L Blood Pressure Mean 61 Blood Pressure Mean [Left Arm] 67 Blood Pressure Position Sitting Blood Pressure Position [Left Arm] Lying Pulse Oximetry 97 93 96 Oxygen Delivery Method Room Air Room Air Room Air Sepsis Recent Fever Within 48 Hours No Sepsis New/Unexplained Change in Mental Status No Sepsis Action Taken by Nursing No Action Required CONSTITUTIONAL/VITAL SIGNS: Reviewed / noted above. GENERAL: Non-toxic in appearance. Chronically ill-appearing. INTEGUMENTARY: Warm, dry, and [place]. HEAD: Normocephalic. There is ecchymosis in the right forehead related to previous fall but this was already evaluated in the recent past. EYES: without scleral icterus or trauma. ENT/OROPHARYNX: clear and dry. LYMPHADENOPATHY/NECK: Is supple without lymphadenopathy or meningismus. RESPIRATORY: Lungs clear and equal. CARDIOVASCULAR: Regular rate and rhythm. GI/ABDOMEN: Soft and nontender. No organomegaly or pulsatile mass. No rebound or guarding. Normal bowel sounds. EXTREMITIES: Warm and well perfused. BACK: No CVA tenderness. NEUROLOGICAL: Intact without focal deficits. PSYCHIATRIC: normal affect. MUSCULOSKELETAL: Normally developed with good muscle tone. TRIAGE NURSING DOCUMENTATION REVIEWED. Course Administered Medications Discontinued Medications Sodium Chloride (Nss 1000ml) 1,000 mls @ 999 mls/hr IV .Q1H1M ELIANA Stop: 05/24/20 08:45 Last Infusion: 05/24/20 09:17 Dose: 0 mls/hr Documented by: [id number] Admin: 05/24/20 08:02 Dose: 999 mls/hr Documented by: [id number] Morphine Sulfate (Morphine Sulfate 2 Mg/Ml Carp) 2 mg IV NOW STA Stop: 05/24/20 07:37 Last Admin: 05/24/20 08:01 Dose: 2 mg Documented by: [id number] Critical Care Time Critical Care Time: Yes Total Critical Care Time: 30 I have personally spent 30 minutes of critical care time in the direct management of this patient. This includes bedside care, interpretation of diagnostic studies, and testing, discussion with consultants, patient, and family members, and other required patient management activities. This 30 minutes is in excess of all separately billable procedures. Medical Decision Making Differential Diagnosis Differential includes acute coronary syndrome, myocardial infarction, CVA, TIA, anemia, infection, pneumonia, UTI, pyelonephritis, poor nutrition, dehydration, electrolyte disturbance,hypoglycemia. Medical Records Attestation: I reviewed the patient's medical records. Home Medications Current Medication List: was personally reviewed by me Laboratory Data Attestation: I reviewed the patient's lab results. Result diagrams: 05/24/20 07:46 05/24/20 07:46 Lab Results 01/24/21 01/24/21 01/24/21 Range/Units 07:46 07:46 07:46 WBC 4.90 (4.8-10.8) K/uL RBC 2.42 L (4.7-6.1) M/uL Hgb 6.8 L* (14.0-18.0) g/dL Hct 21.6 L (42-52) % MCV 89.3 (80-100) fL MCH 28.1 (25-34) pg MCHC 31.5 L (32-36) g/dL RDW Std Deviation 61.6 H (36.4-46.3) fL RDW Coeff of Skyler 21.0 H (11.5-14.5) % Plt Count 88 L (130-400) K/uL MPV 10.3 (7.4-10.4) fL Immature Gran % (Auto) 0.2 % Neut % (Auto) 85.5 % Lymph % (Auto) 5.7 % [place] % (Auto) 5.9 % Eos % (Auto) 2.7 % Baso % (Auto) 0.0 % Neut # (Auto) 4.19 (1.4-6.5) K/uL Lymph # (Auto) 0.28 L (1.2-3.4) K/uL [place] # (Auto) 0.29 (0.11-0.59) K/uL Eos # (Auto) 0.13 (0-0.5) K/uL Baso # (Auto) 0.00 (0-0.2) K/uL Immature Gran # (Auto) 0.01 (0.00-0.02) K/uL Absolute Nucleated RBC 0.06 H (0-0) K/uL Nucleated RBC % (auto) 1.2 % Platelet Estimate Decreased L (Normal) Ovalocytes 1+ Acanthocytes (Spur) 1+ Schistocytes 1+ Sodium 140 (136-145) mmol/L Potassium 3.4 L (3.5-5.1) mmol/L Chloride 104 (98-107) mmol/L Carbon Dioxide 28 (21-32) mmol/L Anion Gap 9.0 (3-11) BUN 36 H (7-18) mg/dl Creatinine 1.52 H (0.6-1.4) mg/dl Est Cr Clr Drug Dosing 40.1 ml/min Est GFR ( Amer) 49.8 Est GFR (Non-Af Amer) 43.0 BUN/Creatinine Ratio 23.8 H (10-20) Glucose 137 H (70-99) mg/dl Calcium 9.1 (8.5-10.1) mg/dl Magnesium 1.6 L (1.8-2.4) mg/dl Total Bilirubin 2.5 H (0.2-1) mg/dl AST 46 H (15-37) U/L ALT 54 (12-78) U/L Alkaline Phosphatase 151 H (45-117) U/L Total Creatine Kinase 32 L (39-308) U/L Troponin I 0.070 H* (0-0.045) ng/ml Total Protein 5.7 L (6.4-8.2) gm/dl Albumin 2.4 L (3.4-5.0) gm/dl Globulin 3.3 (2.5-4.0) gm/dl Albumin/Globulin Ratio 0.7 L (0.9-2) Blood Type O Positive Antibody Screen NEGATIVE Crossmatch See Detail Imaging Data Radiologist's Impression: SINGLE VIEW CHEST CLINICAL HISTORY: Generalized weakness. FINDINGS: An AP, portable, upright chest radiograph is compared to chest x-ray and chest CT dated 05/17/2019. The examination is degraded by portable technique and patient rotation. A right internal jugular central venous infusion port is unchanged in position, as is a 2-lead cardiac AICD which partially obscures the left upper chest. The heart is enlarged noting atherosclerotic calcification of the thoracic aorta. There is pulmonary vascular congestion. Emphysema and chronic interstitial thickening is similar to previous. There are left larger than right pleural effusions with bibasilar consolidation. Nodular opacities are again seen throughout both lungs. No pneumothorax is seen. The skeletal structures are osteopenic. The bony thorax is grossly intact. IMPRESSION: 1. Cardiomegaly and AICD. There is mild pulmonary vascular congestion. 2. Left larger than right pleural effusions with bibasilar consolidation 3. Emphysema. 4. Nodular opacities are again seen throughout both lungs. These are consistent with known metastatic disease and were much better assessed on the 03/17/[address] ECG Data Attestation: I personally reviewed and interpreted this ECG as follows: Rate (beats per minute): 82 Rhythm: + normal sinus ECG Intervals/blocks: + First degree AV block ECG ST segments: no ST elevation ECG Findings: + PVCs MDM Narrative Patient presents with weakness, feeling sore all over nausea and decreased appetite and dry mouth. Further details are noted above. The patient's vital sign reveal a blood pressure of 85/49. He states that his blood pressure does normally run low. Heart rate is 92. He is afebrile and saturations are 97% on room air. He is in no distress. He does have a dry mucous membranes on exam. He appears generally weak. Twelve-lead EKG shows sinus rhythm at a rate of 82 with first-degree AV block and occasional PVC. Chest x-ray as noted above. There are bibasilar effusions with consolidation. The patient clinically does not have pneumonia. His hemoglobin is 6.8. BUN is 36 and creatinine is 1.52. This is up from his baseline. Troponin is slightly elevated at 0.07. The patient was given some IV fluids. He was given 1 L normal saline. The patient was also given 2 mg of IV morphine. Blood transfusion has been ordered. The patient will require further inpatient evaluation and care for his symptoms and abnormalities. Impression & Plan Anemia, Elevated troponin, Acute kidney injury, Acute dehydration, Weakness Discharge Plan Visit Data Chief Complaint: Weakness Stated Complaint: WEAKNESS ED Provider: Papo Patel Discharge Problem: Anemia, Elevated troponin, Acute kidney injury, Acute dehydration, Weakness Patient Disposition: Admitted As Inpatient Forms Stand Alone Forms: [facility], Virtual Emergency Department, Important Visit Information Prescriptions Prescriptions: No Action metformin 500 mg tablet extended release 24 hr 1,000 mg PO BID Qty: 360 RF: 1 atorvastatin [Lipitor] 40 mg tablet 40 mg PO HS Qty: 90 RF: 1 insulin aspart U-100 [Novolog Flexpen U-100 Insulin] 100 unit/mL (3 mL) insulin pen See Rx Instructions .ROUTE .COMPLEX Qty: 15 RF: 1 Basaglar KwikPen U-100 Insulin 100 unit/mL (3 mL) insulin pen 7 unit subcut QAM RF: 0 aspirin 81 mg tablet,delayed release (DR/EC) 81 mg PO QAM RF: 0 ferrous sulfate 325 mg (65 mg iron) tablet 325 mg PO QAM RF: 0 cyanocobalamin (vitamin B-12) 1,000 mcg tablet 1,000 mcg PO QAM Qty: 90 RF: 0 docusate sodium [Colace] 100 mg capsule 100 mg PO BID PRN (Reason: Constipation) RF: 0 dronabinol 2.5 mg capsule 5 mg PO BID Qty: 60 RF: 0 fluoxetine 20 mg tablet 20 mg PO QAM Qty: 270 RF: 1 (DME) pen needle, diabetic [BD Ultra-Fine Short Pen Needle] 31 gauge x 5/16" needle See Rx Instructions .ROUTE .MEDSUPPLY Qty: 100 RF: 1 (DME) OneTouch Ultra Blue Test Strip Strip See Rx Instructions .ROUTE .MEDSUPPLY Qty: 200 RF: 0 (DME) blood-glucose meter [OneTouch Ultra2 Meter] Misc See Rx Instructions .ROUTE .MEDSUPPLY Qty: 1 RF: 0 (DME) lancets [OneTouch Delica Plus Lancet] 30 gauge misc See Rx Instructions .ROUTE .MEDSUPPLY Qty: 200 RF: 0 cholecalciferol (vitamin D3) 5,000 unit Capsule 5,000 unit PO QAM RF: 0 magnesium oxide 400 mg magnesium capsule 400 mg PO QAM RF: 0 acetaminophen [Tylenol Extra Strength] 500 mg Tablet 500 mg PO Q6H PRN (Reason: Pain) RF: 0 melatonin 3 mg Tablet 9 mg PO HS RF: 0 furosemide [Lasix] 40 mg tablet 40 mg PO QAM RF: 0 polyethylene glycol 3350 [Miralax] 17 gram Powder In Packet 17 g PO DAILY PRN (Reason: constipation) Qty: 30 RF: 0 Referrals Referrals: Barbara Calles DO [Primary Care Provider] -
--- NOTE | 2020-05-24 08:09 | XRay Report ---
SINGLE VIEW CHEST CLINICAL HISTORY: Generalized weakness. FINDINGS: An AP, portable, upright chest radiograph is compared to chest x-ray and chest CT dated 05/01. The examination is degraded by portable technique and patient rotation. A right internal ju gular central venous infusion port is unchanged in position, as is a 2-lead cardiac AICD which partia lly obscures the left upper chest. The heart is enlarged noting atherosclerotic calcification of the thoracic aorta. There is pulmonary vascular congestion. Emphysema and chronic interstitial thickening is similar to previous. There are left larger than right pleural effusions with bibasilar consolidat ion. Nodular opacities are again seen throughout both lungs. No pneumothorax is seen. The skeletal st ructures are osteopenic. The bony thorax is grossly intact. IMPRESSION: 1. Cardiomegaly and AICD. There is mild pulmonary vascular congestion. 2. Left larger than right pleural effusions with bibasilar consolidation 3. Emphysema. 4. Nodular opacities are again seen throughout both lungs. These are consistent with known metastatic disease and were much better assessed on the 03/17/[address] ACT 112: Negative or not required by law. Electronically signed by: Yousif Basilio M.D. 05/24/2020 8:08 AM
[2020-05-24] MEDS ORDERED: SODIUM CHLORIDE 0.9% 250 ML IV PRN (08:15)
[2020-05-24 08:21] LABS: Albumin Level 2.4 gm/dl (3.4-5.0); BUN Creatinine Ratio 23.8 (10-20); Calcium 9.1 mg/dl (8.5-10.1); Creatinine Clr Calc Pharmacy 40.1 ml/min; Est GFR (African American) 49.8; Magnesium 1.6 mg/dl (1.8-2.4); Potassium 3.4 mmol/L (3.5-5.1)
[2020-05-24 08:22] LABS: Acanthocytes 1+; Eosinophils # (auto) 0.13 K/uL (0-0.5); Eosinophils % (auto) 2.7 %; Hematocrit (blood only) 21.6 % (42-52); Hemoglobin 6.8 g/dL (14.0-18.0); Immature Granulocytes # (auto) 0.01 K/uL (0.00-0.02); Immature Granulocytes % (auto) 0.2 %; Lymphocytes # (auto) 0.28 K/uL (1.2-3.4); Lymphocytes % (auto) 5.7 %; Mean Corpuscular Hemoglobin 28.1 pg (25-34); Mean Corpuscular Hgb Conc 31.5 g/dL (32-36); Mean Corpuscular Volume 89.3 fL (80-100); Mean Platelet Volume 10.3 fL (7.4-10.4); Monocytes # (auto) 0.29 K/uL (0.11-0.59); Monocytes % (auto) 5.9 %; Neutrophils # (auto) 4.19 K/uL (1.4-6.5); Neutrophils % (auto) 85.5 %; Nucleated RBC # (auto) 0.06 K/uL (0-0); Nucleated RBC % (auto) 1.2 %; Ovalocytes 1+; Platelet Count 88 K/uL (130-400); Platelet Estimate Decreased (Normal); RDW Standard Deviation 61.6 fL (36.4-46.3); Red Blood Count 2.42 M/uL (4.7-6.1); Schistocytes 1+
[2020-05-24 08:28] LABS: Albumin Globulin Ratio 0.7 (0.9-2); Bilirubin,Total 2.5 mg/dl (0.2-1); Globulin 3.3 gm/dl (2.5-4.0); Total Protein 5.7 gm/dl (6.4-8.2); Troponin I 0.07 ng/ml (0-0.045)
[2020-05-24] MEDS ORDERED: POLYETHYLENE (MIRALAX) 17 GM PACK PO PRN (12:40)
[2020-05-24] MEDS ORDERED: CARBOHYDRATES FOR HYPOGLYCEMIA PO PRN (12:40)
[2020-05-24] MEDS ORDERED: GLUCOSE 10 TABS/TUBE PO PRN (12:40)
[2020-05-24] MEDS ORDERED: DEXTROSE 50% 50 ML SYRINGE IV PRN (12:40)
[2020-05-24] MEDS ORDERED: DOCUSATE SODIUM 100 MG CAP PO PRN (12:40)
[2020-05-24] MEDS ORDERED: ONDANSETRON INJ 2 MG/ML 2 ML VIAL IV PRN (12:40)
[2020-05-24] MEDS ORDERED: GLUCOSE 40% GEL 15 GM TUBE PO PRN (12:40)
[2020-05-24] MEDS ORDERED: GLUCAGON FOR INJ 1 MG VIAL SQ PRN (12:40)
[2020-05-24] MEDS ORDERED: ACETAMINOPHEN 500 MG TAB PO PRN (12:44)
--- NOTE | 2020-05-24 13:49 | History & Physical Report ---
Date of Service May 24, 2020 Assessment & Plan (1) Shortness of breath: Likely symptomatic anemia. - Will get CTA chest - Given cancer risk, PE also possible. (2) Anemia: Likely due to bone marrow suppression from cancer. No indication of GI ble eding. - S/p 1 unit of PRBCs in ED on 05/24. - Monitor hgb; monitor for bleeding - At this point, anemia labs are not very helpful given he already got a unit of blood. (3) Weakness: Multifactorial from cancer, nutrition status, anemai. - PT/OT (4) Acute kidney injury: Baseline Cr ~ 1.0 - 1.1, eGFR 65. CKD Stage II. - Cr on presentation up to 1.5, likely pre-renal. - Got IV fluids and blood in the ED. Given his chronic CHF, will defer further fluids and watch Cr. (5) Malignant neoplasm of pancreas: Stage IV. Follows with Dr. Celestin and Fabiola Lindsey. Had planned for chemo on 05/19/2020, but skipped due to anemia. Feels his cancer is "stabilized" and just needs maintenance chemo. - Discussed palliative care - Patient presently defers and affirms he is a full code. - Will discuss with oncology tomorrow AM - Continue dronabinol (6) S/P internal cardiac defibrillator procedure: Believe this is for primary prevention of VT, given his poor EF. - Will discuss with Dr. Levine on Monday if he has any interest in interrogating pacer. Presently I see no acute cardiac issues. (7) Chronic systolic CHF (congestive heart failure): Has essentially been tapering his Lasix as he loses weight. - Hold Lasix for YELENA - Monitor volume status after fluids and blood in the ED. (8) DM2 (diabetes mellitus, type 2): A1c was 7.9% this month. - Holding long-acting insulin given his poor PO intake. - Sliding scale insulin (9) Depression with anxiety: No overt depressive symptoms for me on interview today. - Continue fluoxetine (10) BPH with obstruction/lower urinary tract symptoms: Will monitor PVRs to be sure no urinary retention contributing to his YELENA. (11) DVT prophylaxis: Lovenox 40 mg SQ daily - High risk given cancer. As above, no present indication of bleeding as cause of his anemia. Admission and Anticipated Discharge Date Admission Date: May 24, 2020 History of Present Illness Primary Care Provider: Barbara Calles, DO 79yo M w/ hx of Stage IV pancreatic cancer who presents with weakness and shortness of breath and found to have anemia. The patient reports weakness for at least two weeks. It's a general weakness, and not in any particular focal area. He also notes that he has been short of breath for several weeks, though it is more of a "now and then" issue rather than long-standing. The patient reports that he was scheduled to receive chemotherapy (not sure what kind) last Monday with [facility], but that it was held for weakness and low blood counts. In the ED, his blodo count was noted to be 6.8, and he was given a unit of blood. He reports his cancer doing "well" and that he has been told it has "stabilized" and that he just needs maintenance chemotherapy at this time. Allergies Allergy/AdvReac Type Severity Reaction Status Date / Time Penicillins Allergy Mild 35 YRS AGO Verified 05/24/20 08:51 DEVELOPED RASH sertraline Allergy Unknown DID NOT Verified 05/24/20 08:51 TOLERATE MED Home Medications Medication Instructions Recorded Confirmed Type cholecalciferol (vitamin D3) 5,000 unit PO QAM 02/13/18 05/24/20 History cyanocobalamin (vitamin B-12) 1,000 mcg PO QAM #90 tab 09/18/18 05/24/20 History 1,000 mcg tablet ferrous sulfate 325 mg (65 mg 325 mg PO QAM tab 09/18/18 05/24/20 History iron) tablet aspirin 81 mg tablet,delayed 81 mg PO QAM tab 10/30/18 05/24/20 History release metformin 500 mg tablet,extended 1,000 mg PO BID #360 tab 05/17/19 05/24/20 Rx release 24 hr atorvastatin 40 mg tablet 40 mg PO HS #90 tab 08/02/19 05/24/20 Rx docusate sodium 100 mg capsule 100 mg PO BID PRN 01/17/20 05/24/20 History fluoxetine 20 mg tablet 20 mg PO QAM #270 tab 02/24/20 05/24/20 Rx magnesium oxide 400 mg PO QAM 03/17/20 05/24/20 History insulin aspart U-100 100 unit/mL See Rx Instructions .ROUTE 03/25/20 05/24/20 Rx (3 mL) subcutaneous pen .COMPLEX #15 ml blood sugar diagnostic #200 ea 04/01/20 05/15/20 Rx blood-glucose meter #1 ea 04/01/20 05/15/20 Rx lancets 30 gauge #200 ea 04/01/20 05/15/20 Rx pen needle, diabetic 31 gauge x #100 ea 04/01/20 05/15/20 Rx 5/16" insulin glargine 100 unit/mL (3 7 unit SUBCUT QAM ml 04/22/20 05/24/20 History mL) subcutaneous pen furosemide [Lasix] 40 mg PO QAM 05/06/20 05/24/20 History melatonin 9 mg PO HS 05/06/20 05/24/20 History polyethylene glycol 3350 [Miralax] 17 g PO DAILY PRN #30 ea 05/08/20 05/24/20 Rx dronabinol 2.5 mg capsule 5 mg PO BID #60 cap 05/15/20 05/24/20 Rx acetaminophen [Tylenol Extra 500 mg PO Q6H PRN 05/24/20 05/24/20 History Strength] Past Med/Surg History Medical History Anemia Asthmatic bronchitis BPH with obstruction/lower urinary tract symptoms CAD (coronary atherosclerotic disease) Cardiomyopathy, nonischemic s/p dual chamber AICD implantation 08/2017. EF 20-25% on most recent echo 06/2019. Chronic systolic CHF (congestive heart failure) Depression with anxiety DM2 (diabetes mellitus, type 2) Dyslipidemia Dyspnea on exertion Hepatic steatosis History of kidney stones HTN (hypertension) Hypoxia Hypoxia Insomnia Malignant neoplasm of pancreas With mets to lungs Malnutrition Mild sleep apnea Nephrolithiasis Non-sustained ventricular tachycardia Obesity, Class I, BMI 30-34.9 Osteoarthritis Psoriasis SOB (shortness of breath) Vitamin B12 deficiency Vitamin D deficiency Surgical History H/O arthroplasty ankle History of Achilles tendon repair LEFT History of arthroplasty of right knee History of cardiac cath x3 - all at [facility] - most recent beginning of 2017 r/t failed stress tests - no stents/angioplasty 2017 - abn stress test - no stents/angioplasty 2016 - abd stress test - no stents/angioplasty History of cataract surgery B/L History of colonoscopy History of esophagogastroduodenoscopy (EGD) History of lithotripsy History of PTCA History of total knee replacement LEFT/RT Port-A-Cath in place (~08/28/19) Insertion of Mediport with Fluoroscopy(Right) - Tobin Schneider DO, FACS 08/28/19 S/P internal cardiac defibrillator procedure (09/19/17) Dual-chamber Medtronic ICD, August 2017 (FOLLOWS WITH DR. LEVINE) PLACED D/T IRREGULAR HEARTBEAT Family History Father Acute myocardial infarction Heart disease Myocardial infarction Mother Cancer Family history of diabetes mellitus Denies family history of Ovarian cancer Prostate cancer Breast cancer Colorectal cancer Social History Smoking Status: Former smoker Tobacco Type: Cigarettes Cigarettes Per Day: QUIT OVER 60YRS AGO; Second Hand Exposure: No; Hx Alcohol Use: No Hx Substance Use: Yes Preferred Language: Albanian Communication Ability: Effective Visual Impairment: No Limitations Hearing Ability: Normal Waistband Setter Lockstitch Required: No Beliefs That Will Affect Care: None marital status: Current Living Situation: Spouse current occupational status: retired Other Information That Helps Us Care for You: No Feels Safe at Home: Yes Safety Concerns: Feels Safe At This Time Childhood Exposure to Second-Hand Smoke: No caffeine: No during the past year weight has: remained stable Dental Care, Regularly: Yes Physical Activity Frequency: Daily Seatbelt Use: always Sunscreen Use: No Assistive Devices: Denture - Upper, Denture - Lower and Glasses Review of Systems Review of Systems: All systems reviewed & are unremarkable except as noted in HPI & below Physical Exam Constitutional: WD/WN, vitals as above + acute distress Eyes: EOM intact bilaterally; no conjunctival abnormality ENMT: external ear and nose normal, oropharynx normal Neck: trachea midline, no thyromegaly normal visual inspection Respiratory: normal respiratory effort, lungs clear to auscultation no respiratory distress Cardiovascular: RRR, no murmur, no edema Gastrointestinal (Abdomen): Inspection/Auscultation: abdomen normal to inspection; abdomen not distended Musculoskeletal: no cyanosis or clubbing, extremities motor strength 5/5 Skin: no rashes, warm and dry Neurologic: moves all extremities and awake Psychiatric: Orientation: alert, oriented to person and cooperative Results & Data Results & Data ([facility]) Vital Signs (Past 12 Hours) Vital Signs Temp Pulse Pulse Resp BP BP Pulse Ox 05/24/20 12:43 84 18 90/57 L 96 05/24/20 11:58 79 16 100/66 91 05/24/20 11:50 77 7 L 05/24/20 11:45 36.4 C L 74 16 93/60 L 92 05/24/20 11:40 80 23 05/24/20 11:31 79 10 L 05/24/20 11:30 76 7 L 99/64 L 05/24/20 11:27 82 7 L 97/68 L 05/24/20 11:25 36.5 C 75 20 97/68 L 91 05/24/20 11:20 72 12 05/24/20 11:15 72 10 L 96/63 L 05/24/20 11:10 96 H 9 L 05/24/20 11:01 97 H 16 05/24/20 11:00 95 H 14 99/64 L 05/24/20 10:55 36.5 C 88 16 92/62 L 93 05/24/20 10:50 85 14 05/24/20 10:45 84 16 93/64 L 05/24/20 10:40 94 H 21 05/24/20 10:31 94 H 18 05/24/20 10:30 93 H 20 99/58 L 05/24/20 10:26 107 H 19 96/60 L 05/24/20 10:25 36.5 C 84 16 96/60 L 91 05/24/20 10:20 78 21 83 L 05/24/20 10:15 73 23 97/66 L 94 05/24/20 10:10 91 H 16 92 05/24/20 10:01 97 H 21 93 05/24/20 10:00 85 12 100/61 90 05/24/20 09:55 36.5 C 92 H 13 97/66 L 90 05/24/20 09:50 77 18 95 05/24/20 09:45 83 21 98/61 L 90 05/24/20 09:41 76 6 L 94 05/24/20 09:40 36.7 C 78 17 96/56 L 94 05/24/20 09:31 97 H 14 91 05/24/20 09:30 84 15 93/66 L 96 05/24/20 09:25 92 H 20 89/57 L 77 L 05/24/20 09:22 79 21 93/61 L 95 05/24/20 09:21 36.6 C 80 20 93/61 L 92 05/24/20 09:20 80 22 92 05/24/20 09:10 79 10 L 92 05/24/20 09:01 83 23 87 L 05/24/20 09:00 94 H 14 98/66 L 91 05/24/20 08:50 93 H 17 88 L 05/24/20 08:40 83 19 91 05/24/20 08:31 81 27 H 90 05/24/20 08:30 83 21 96/63 L 94 05/24/20 08:20 87 3 L 93 05/24/20 08:10 73 18 92 05/24/20 08:07 84 14 89 L 05/24/20 08:06 77 18 88/57 L 96 05/24/20 08:05 83 12 88/57 L 96 05/24/20 08:02 82 18 93 05/24/20 07:18 36 C L 92 H 18 85/49 L 97 Code Status & VTE Plan VTE Prophylaxis Plan VTE Prophylaxis will be ordered: Yes PG Care Time/CCT Total # of Minutes Spent Total Time Spent with Patient: Total time spent is greater than 50% in coordination of care (as documented) at patient's floor/unit and/or counseling patient: Coding Level of Care Code 45664 OBS Care - Level 3 Diagnoses Shortness of breath R06.02 Anemia D64.9 Weakness R53.1 Acute kidney injury N17.9 Malignant neoplasm of pancreas C25.9 S/P internal cardiac defibrillator procedure Z95.810 Chronic systolic CHF (congestive heart failure) I50.22 DM2 (diabetes mellitus, type 2) E11.9 Depression with anxiety F41.8 BPH with obstruction/lower urinary tract symptoms N40.1; N13.8 DVT prophylaxis Z29.9
[2020-05-24] MEDS: INSULIN ASPART 100 UNITS/ML 3 ML PEN SC SCH ×3 (13:58→20:53)
--- NOTE | 2020-05-24 14:10 | Electrocardiogram Report ---
Test Reason : Blood Pressure : / mmHG Vent. Rate : 082 BPM Atrial Rate : 082 BPM P-R Int : 210 ms QRS Dur : 122 ms QT Int : 424 ms P-R-T Axes : 066 -56 125 degrees QTc Int : 495 ms Sinus rhythm with 1st degree A-V block with occasional Premature ventricular complexes and Premature atrial complexes Left axis deviation Non-specific intra-ventricular conduction delay Nonspecific T wave abnormality Abnormal ECG When compared with ECG of 17-MAR-2020 11:11, Premature ventricular complexes are now Present Premature atrial complexes are now Present Confirmed by Kristian Calderón ([id number]) on 05/24/2020 2:09:58 PM Referred By: REFERRED SELF Confirmed By:Kristian Calderón
[2020-05-24] MEDS ORDERED: OPTIRAY 320 125ml IV ONE (18:28)
--- NOTE | 2020-05-24 20:41 | CT Scan Report ---
CT ANGIOGRAM OF THE CHEST CLINICAL HISTORY: Generalized weakness. Dyspnea. Pancreatic cancer. COMPARISON STUDY: Chest CT scans dated 03/17/2020 and 06/20/2016. Chest x-ray dated 05/24/2020. TECHNIQUE: Following the IV administration of 116 cc of Optiray 320, CT angiogram of the chest was pe rformed from the upper abdomen to the thoracic inlet utilizing the pulmonary embolus protocol. Images are reviewed in the axial, sagittal, and coronal planes. 3-D MIPS images are created and assessed. I V contrast was administered without complication. A dose lowering technique was utilized adhering to the principles of ALARA. CT DOSE: 381.31 mGy.cm FINDINGS: Thyroid: Imaged portions of the thyroid gland are normal in size and attenuation. Thoracic aorta: There is atherosclerotic calcification of the thoracic aorta, which is normal in hugh blake and demonstrates standard 3-vessel arch anatomy. The thoracic aorta is not well opacified. Pulmonary vasculature: The main pulmonary arteries are dilated suggesting pulmonary artery hypertensi on. There are no filling defects identified in main, lobar, or segmental pulmonary branches to sugges t pulmonary embolus. Heart: A 2-lead cardiac AICD is in place. A right internal jugular central venous infusion port is no matteo. The heart is enlarged and without pericardial effusion. There are coronary artery calcifications . Lungs and pleural spaces: Evaluation of the lung parenchyma is degraded by motion artifact. There are moderate pleural effusions, left larger than right with associated atelectasis. The trachea and cent ral airways are clear. There are numerous cavitary pulmonary lesions, which have increased in size as compared to the 03/17/2020 examination. The largest irregular lesion in the left lower lobe is seen on image #137 and measures up to 4 cm. At least 10 additional lesions are scattered throughout both l ungs. There is diffuse intralobular septal thickening as well as mild multifocal groundglass change. Mediastinum: There are numerous mildly enlarged mediastinal lymph nodes. Ruth: There are calcified right hilar nodes. Enlarged bilateral hilar lymph nodes measure up to 1.5 c m in short axis. Axillae: There is no axillary lymphadenopathy. Upper abdomen: There is a small volume of upper perihepatic ascites. Reflux of contrast into the IVC and hepatic veins suggests cardiac dysfunction. Partially visualized upper abdominal viscera is withi n normal limits. Skeletal structures: The skeletal structures are osteopenic. No lytic or blastic bony lesions are see n. IMPRESSION: 1. There is no evidence of pulmonary embolus in the main, lobar, or segmental pulmonary arteries. 2. Cardiomegaly and AICD. 3. There are moderate pleural effusions, left larger than right with associated atelectasis. 4. There are numerous cavitary pulmonary lesions scattered throughout both lungs. These have increase d in size as compared to 03/17/2020 and are consistent with metastatic disease. 5. There is mild groundglass change as well as intralobular septal thickening. The appearance is most consistent with congestive failure. Correlate clinically for evidence of a superimposed infectious/i nflammatory pneumonitis. 6. Additional findings as above. ACT 112: Negative or not required by law. Electronically signed by: Yousif Basilio M.D. 05/24/2020 8:40 PM
[2020-05-24] MEDS: MELATONIN 3 MG TAB PO SCH (21:10)
[2020-05-24] MEDS: ATORVASTATIN 40 MG TAB PO SCH (21:10)
[2020-05-25] MEDS: HEPARIN 100 UNIT/ML 5ML FLUSH FLUSH PRN ×2 (05:47→13:14)
[2020-05-25 06:31] LABS: Nucleated RBC # (auto) 0.09 K/uL (0-0)
[2020-05-25 06:33] LABS: Hematocrit (blood only) 28.9 % (42-52); Hemoglobin 9.2 g/dL (14.0-18.0); Mean Corpuscular Hemoglobin 28.5 pg (25-34); Mean Corpuscular Hgb Conc 31.8 g/dL (32-36); Mean Corpuscular Volume 89.5 fL (80-100); Mean Platelet Volume 11.1 fL (7.4-10.4); Platelet Count 147 K/uL (130-400); RDW Coefficient of Variation 19.5 % (11.5-14.5); RDW Standard Deviation 57.4 fL (36.4-46.3); Red Blood Count 3.23 M/uL (4.7-6.1); White Blood Count 4.53 K/uL (4.8-10.8)
[2020-05-25 07:16] LABS: Albumin Level 2.3 gm/dl (3.4-5.0); BUN Creatinine Ratio 24.3 (10-20); Calcium 8.5 mg/dl (8.5-10.1); Creatinine Clr Calc Pharmacy 52.6 ml/min; Est GFR (Non-African American) 59.6; Magnesium 1.7 mg/dl (1.8-2.4); Potassium 3.8 mmol/L (3.5-5.1)
[2020-05-25 07:17] LABS: Albumin Globulin Ratio 0.8 (0.9-2); Bilirubin,Total 2.7 mg/dl (0.2-1); Total Protein 5.3 gm/dl (6.4-8.2)
[2020-05-25] MEDS: MAGNESIUM SULFATE / D5W 1 GM/100 ML BAG IV SCH ×2 (09:05→11:28)
[2020-05-25] MEDS: FLUoxetine HCL 20 MG CAP PO SCH (09:06)
[2020-05-25] MEDS: ENOXAPARIN INJ 40 MG/0.4 ML SYR SQ SCH (09:06)
[2020-05-25] MEDS: FERROUS SULFATE 325 MG TAB PO SCH (09:06)
[2020-05-25] MEDS: ASPIRIN 81 MG ECTAB PO SCH (09:06)
[2020-05-25] MEDS: MAGNESIUM OXIDE 400 MG TAB PO SCH (09:06)
[2020-05-25] MEDS: INSULIN ASPART 100 UNITS/ML 3 ML PEN SC SCH ×4 (09:09→21:22)
--- NOTE | 2020-05-25 17:18 | Hospitalist Progress Note ---
Date of Service May 25, 2020 Assessment & Plan (1) Malignant neoplasm of pancreas: Stage IV. Follows with Dr. Celestin and Fabiola Lindsey. Had planned for chemo on 05/19/2020, but skipped due to anemia. Feels his cancer is "stabilized" and just needs maintenance chemo. - Discussed palliative care - Patient presently defers and affirms he is a full code. - Discussed with oncology - Asked for CT a/p to assess cancer. - Continue dronabinol (2) Shortness of breath: Likely symptomatic anemia vs. hypoxemia from CHF or cancer. - CTA chest on 05/24 showed no PE, but possibility of some fluid and progression of cancer. (3) Anemia: Likely due to bone marrow suppression from cancer. No indication of GI bleeding. - S/p 2 unit of PRBCs in ED on 05/24. - Monitor hgb - Up to 9.2 today. (4) Weakness: Multifactorial from cancer, nutrition status, anemai. - PT/OT (5) Acute kidney injury: Baseline Cr ~ 1.0 - 1.1, eGFR 65. CKD Stage II. - Cr on presentation up to 1.5, likely pre-renal. - Got IV fluids and blood in the ED. Given his chronic CHF, will defer further fluids and watch Cr. Cr down to 1.15. (6) S/P internal cardiac defibrillator procedure: Believe this is for primary prevention of VT, given his poor EF. - Will discuss with Dr. Levine on Monday if he has any interest in interrogating pacer. Presently I see no acute cardiac issues. (7) Chronic systolic CHF (congestive heart failure): Has essentially been tapering his Lasix as he loses weight. - Hold Lasix for YELENA - Monitor volume status after fluids and blood in the ED. - Stable so far. (8) DM2 (diabetes mellitus, type 2): A1c was 7.9% this month. - Holding long-acting insulin given his poor PO intake. - Sliding scale insulin - Blood sugars are 80 - 140. (9) Depression with anxiety: No overt depressive symptoms for me on interview today. - Continue fluoxetine (10) BPH with obstruction/lower urinary tract symptoms: Will monitor PVRs to be sure no urinary retention contributing to his YELENA. (11) DVT prophylaxis: Lovenox 40 mg SQ daily - High risk given cancer. As above, no present indication of bleeding as cause of his anemia. Admission and Anticipated Discharge Date Admission Date: May 24, 2020 Subjective Feels better today. No major issues. Reports no fevers/chills, chest pain, shortness of breath, abdominal pain, nausea, or vomiting. Physical Exam Constitutional: WD/WN, vitals as above + acute distress Eyes: EOM intact bilaterally; no conjunctival abnormality ENMT: external ear and nose normal, oropharynx normal Neck: trachea midline, no thyromegaly normal visual inspection Respiratory: normal respiratory effort, lungs clear to auscultation no respiratory distress Cardiovascular: RRR, no murmur, no edema Gastrointestinal (Abdomen): Inspection/Auscultation: abdomen normal to inspection; abdomen not distended Musculoskeletal: no cyanosis or clubbing, extremities motor strength 5/5 Skin: no rashes, warm and dry Neurologic: moves all extremities and awake Psychiatric: Orientation: alert, oriented to person and cooperative Results & Data Results & Data ([facility]) Vital Signs (Past 12 Hours) Vital Signs Temp Pulse Pulse Pulse Pulse Pulse Pulse 05/25/20 15:30 36.8 C 98 H 05/25/20 13:08 112 H 114 H 114 H 73 114 H 05/25/20 10:14 05/25/20 07:12 36.5 C 96 H Pulse Resp Resp Resp Resp Resp Resp 05/25/20 15:30 18 05/25/20 13:08 102 H 21 22 21 19 20 05/25/20 10:14 05/25/20 07:12 18 Resp BP Pulse Ox Pulse Ox Pulse Ox Pulse Ox Pulse Ox 05/25/20 15:30 110/75 98 05/25/20 13:08 18 84 L 87 L 96 85 L 05/25/20 10:14 87 L 05/25/20 07:12 102/69 96 Pulse Ox Pulse Ox 05/25/20 15:30 05/25/20 13:08 94 96 05/25/20 10:14 05/25/20 07:12 PG Care Time/CCT Total # of Minutes Spent Total Time Spent with Patient: Total time spent is greater than 50% in coordination of care (as documented) at patient's floor/unit and/or counseling patient: Coding Level of Care Code 80395 Subseq Hosp Care Lvl 2 Diagnoses Malignant neoplasm of pancreas C25.9 Shortness of breath R06.02 Anemia D64.9 Weakness R53.1 Acute kidney injury N17.9 S/P internal cardiac defibrillator procedure Z95.810 Chronic systolic CHF (congestive heart failure) I50.22 DM2 (diabetes mellitus, type 2) E11.9 Depression with anxiety F41.8 BPH with obstruction/lower urinary tract symptoms N40.1; N13.8 DVT prophylaxis Z29.9
[2020-05-25] MEDS ORDERED: IOVERSOL 100ml IV ONE (18:57)
--- NOTE | 2020-05-25 19:20 | CT Scan Report ---
CT OF THE ABDOMEN AND PELVIS WITH CONTRAST CLINICAL HISTORY: Cancer status. Pancreatic cancer. COMPARISON STUDY: PET/CT January 01, 2020. CT of the abdomen and pelvis May 06, 2020. TECHNIQUE: Following IV administration of 87 mL of Optiray-320, axial images of the abdomen and pelvi s were obtained from the lung bases to the proximal femurs. Images were reviewed in the axial, sagitt al, and coronal planes. IV contrast was administered without complication. Automated exposure contro l was utilized for the study. A dose lowering technique was utilized adhering to the principles of A MUKESH. Oral contrast was administered. CT DOSE: 495.02 mGy.cm FINDINGS: Bilateral pleural effusions and numerous cavitary metastases are better depicted on chest C T of May 24, 2020. Bilateral lower lung airspace opacities have increased. No pneumatosis, free a ir or portal venous gas is present. No hepatic lesions are identified. There are gallstones within th e gallbladder without evidence for acute cholecystitis. The spleen, adrenal glands are unremarkable. The previously described hypodense pancreatic tail lesion is difficult to measure on this exam but me asures approximately 2.3 cm and is similar to CT of May 06, 2020 is no biliary or pancreatic ducta l dilatation. There is no hydronephrosis. Sensitivity for detection of urinary calculi is diminished given excreted contrast within the collecting systems. There may be small bladder calculi. There is n o evidence for a bowel obstruction. Body wall edema is noted. The caliber and wall thickness of small and large bowel are normal. Prostate is mildly enlarged. No suspicious osseous lesions are identifie d within visualized skeletal structures. Note is made of colonic diverticulosis without evidence for acute diverticulitis. Perigastric varices are again noted. Excreted contrast and trace gas within the bladder is noted. IMPRESSION: 1. No significant change in the hypodense pancreatic tail lesion since CT of May 06, 2020. This is decreased in size since PET/CT of August 21, 2019 and represents the primary pancreatic tumor. No lucy dence of metastatic disease within the abdomen or pelvis. 2. Numerous cavitary pulmonary metastases, better depicted on the chest CT of May 24, 2020. Persi stent bilateral pleural effusions with interval increase in bilateral lower lobe airspace opacities w hich may reflect an infectious process or aspiration pneumonitis. 3. Anasarca. Small amount of ascites. 4. No bowel obstruction. 5. Cholelithiasis. 6. Resolution of right hydronephrosis. Decreased sensitivity for detection of ureteral calculi given excreted contrast. Nonspecific urothelial thickening within the right collecting system. ACT 112: Negative or not required by law. Electronically signed by: Viet Badillo M.D. 05/25/2020 7:19 PM
[2020-05-25] MEDS: ATORVASTATIN 40 MG TAB PO SCH (20:38)
[2020-05-25] MEDS: MELATONIN 3 MG TAB PO SCH (20:38)
[2020-05-26] MEDS ORDERED: oxyCODONE HCL IR 5 MG TAB (IMMEDIATE RELEASE) PO STA (02:34)
[2020-05-26] MEDS: HEPARIN 100 UNIT/ML 5ML FLUSH FLUSH PRN ×2 (05:57→12:45)
[2020-05-26 06:19] LABS: Hematocrit (blood only) 27.8 % (42-52); Hemoglobin 8.9 g/dL (14.0-18.0); Mean Corpuscular Hemoglobin 28.8 pg (25-34); Mean Platelet Volume 9.7 fL (7.4-10.4); Nucleated RBC # (auto) 0.03 K/uL (0-0); Nucleated RBC % (auto) 0.8 %; Platelet Count 205 K/uL (130-400); RDW Coefficient of Variation 20.4 % (11.5-14.5); RDW Standard Deviation 59.9 fL (36.4-46.3); Red Blood Count 3.09 M/uL (4.7-6.1); White Blood Count 3.69 K/uL (4.8-10.8)
[2020-05-26 06:48] LABS: Albumin Level 2.1 gm/dl (3.4-5.0); Calcium 8.6 mg/dl (8.5-10.1); Est GFR (African American) 76.1; Est GFR (Non-African American) 65.7; Magnesium 1.9 mg/dl (1.8-2.4); Potassium 3.3 mmol/L (3.5-5.1)
[2020-05-26 06:51] LABS: Albumin Globulin Ratio 0.7 (0.9-2); Bilirubin,Total 2.7 mg/dl (0.2-1); Total Protein 5.1 gm/dl (6.4-8.2)
[2020-05-26] MEDS: FLUoxetine HCL 20 MG CAP PO SCH (08:54)
[2020-05-26] MEDS: FERROUS SULFATE 325 MG TAB PO SCH (08:55)
[2020-05-26] MEDS: ASPIRIN 81 MG ECTAB PO SCH (08:55)
[2020-05-26] MEDS: MAGNESIUM OXIDE 400 MG TAB PO SCH (08:55)
[2020-05-26] MEDS: INSULIN ASPART 100 UNITS/ML 3 ML PEN SC SCH (08:56)
[2020-05-26] MEDS: ENOXAPARIN INJ 40 MG/0.4 ML SYR SQ SCH (08:57)
--- NOTE | 2020-05-26 17:22 | Discharge Summary ---
Date of Service May 26, 2020 Admission HPI Per Admitting Provider 79yo M w/ hx of Stage IV pancreatic cancer who presents with weakness and shortness of breath and found to have anemia. The patient reports weakness for at least two weeks. It's a general weakness, and not in any particular focal area. He also notes that he has been short of breath for several weeks, though it is more of a "now and then" issue rather than long-standing. The patient reports that he was scheduled to receive chemotherapy (not sure what kind) last Monday with [facility], but that it was held for weakness and low blood counts. In the ED, his blodo count was noted to be 6.8, and he was given a unit of blood. He reports his cancer doing "well" and that he has been told it has "stabilized" and that he just needs maintenance chemotherapy at this time. Principal Diagnosis Pancreatic cancer Anemia Discharge Exam Constitutional WD/WN, vitals as above no acute distress Eyes EOM intact bilaterally; no conjunctival abnormality ENMT external ear and nose normal, oropharynx normal Neck trachea midline, no thyromegaly normal visual inspection Respiratory normal respiratory effort, lungs clear to auscultation no respiratory distress Cardiovascular RRR, no murmur, no edema Gastrointestinal (Abdomen) Inspection/Auscultation: abdomen normal to inspection; abdomen not distended Musculoskeletal no cyanosis or clubbing, extremities motor strength 5/5 Skin no rashes, warm and dry Neurologic moves all extremities and awake Psychiatric Orientation: alert, oriented to person and cooperative Discharge Data Allergies Allergy/AdvReac Type Severity Reaction Status Date / Time Penicillins Allergy Mild 35 YRS AGO Verified 05/24/20 08:51 DEVELOPED RASH sertraline Allergy Unknown DID NOT Verified 05/24/20 08:51 TOLERATE MED Consultations 05/24/20 09:20 ED Decision to Admit Stat Ordered Studies 05/24/20 14:10 CT angio chest PE protocol Routine 05/25/20 15:43 CT abd pelvis oral and IV con Routine Hospital Course (1) Malignant neoplasm of pancreas: Stage IV. Follows with Dr. Celestin and Fabiola Lindsey. Had planned for chemo (gemcitabine) on 05/19/2020, but skipped due to anemia. - Discussed palliative care consult with the patient - Patient presently defers and affirms he is a full code. - Continue dronabinol CT chest shows progression of her pulmonary mets. His CT a/p shows stable pancreatic mass. - Discussed with oncology - Will likely need to switch chemo regimen given advancement in lung mets; however, will discuss with Dr. Celestin next Monday. (2) Shortness of breath: Likely symptomatic anemia vs. hypoxemia from CHF or cancer. - CTA chest on 05/24 showed no PE, but possibility of some fluid and progression of cancer. - Due to pulmonary mets and maybe some CHF, he was discharged with nasal cannula oxygen: 0L at rest, 6L with exertion. (3) Anemia: Likely due to bone marrow suppression from cancer. No indication of GI bleeding. - S/p 2 unit of PRBCs in ED on 05/24. - Monitor hgb - Up to 9.2 today. (4) Weakness: Multifactorial from cancer, nutrition status, anemai. - PT/OT (5) Acute kidney injury: Baseline Cr ~ 1.0 - 1.1, eGFR 65. CKD Stage II. - Cr on presentation up to 1.5, likely pre-renal. - Got IV fluids and blood in the ED. Given his chronic CHF, will defer further fluids and watch Cr. Cr down to 1.05 on discharge. (6) S/P internal cardiac defibrillator procedure: Believe this is for primary prevention of VT, given his poor EF. - No acute cardiac issues. (7) Chronic systolic CHF (congestive heart failure): Has essentially been tapering his Lasix as he loses weight. - Hold Lasix for YELENA - Monitor volume status after fluids and blood in the ED. - Stable so far. (8) DM2 (diabetes mellitus, type 2): A1c was 7.9% this month. - Holding long-acting insulin given his poor PO intake. - Sliding scale insulin - Blood sugars are 80 - 140. (9) Depression with anxiety: No overt depressive symptoms for me on interview today. - Continue fluoxetine (10) BPH with obstruction/lower urinary tract symptoms: Will monitor PVRs to be sure no urinary retention contributing to his YELENA. (11) DVT prophylaxis: Lovenox 40 mg SQ daily - High risk given cancer. As above, no present indication of bleeding as cause of his anemia. Total Time Total Time Spent Total Time Spent (In Minutes): 35 Discharge Plan Discharge Items Patient Disposition: Home - Self-Care Reason For Visit: ANEMIA, WEAKNESS Discharge Diagnosis: Anemia, progression of pancreatic cancer Activity: Resume your previous activity Non-emergency contact: Primary Care Provider and Oncologist Call non-emergency contact if: your symptoms worsen Follow-up/Referrals: Barbara Calles DO [Primary Care Provider] - 06/04/20 9:20 am Dereck Celestin DO [Physician] - 06/02/20 8:10 am Diet: Carb Consistent or DM2 Addtl Attending Provider Instructions: You were admitted for weakness and shortness of breath. We found your hemoglobin (red blood cell level) to be low which can cause these symptoms. We did a CT scan of your chest, abdomen, and pelvis. The cancer spots in your lungs have gotten bigger, but the pancreas has stayed stable. Because of your weight loss, you don't need to use insulin any longer. The long- acting in particular is dangerous because it can make your blood sugar drop too low overnight when you are not awake. Please feel free to continue to checking your blood sugar, and you may need occasional short-acting insulin. But definitely plan to speak with your PCP about this and plan to use smaller doses of short-acting. Again, avoid long-acting insulin as I worry it will pull you low overnight while you sleep. Finally, I also think you do not need to take 2 pills of the metformin (1,000 mg) twice a day. Lower this to 1 tablet (500 mg) twice a day. As your kidney function changes, it is important to lower this dose. Again, speak with your PCP about this. Please follow up with Dr. Celestin at your next visit on Monday to see what he thi nks. He may need to adjust/switch your chemotherapy regimen if he feels the cancer is progressing. Please come back to the hospital with further shortness of breath, weakness, bleeding, or other concerning symptoms. Pending Studies at Discharge: No Stand-Alone Forms: My [employer], Smoking Cessation Medications and DC Order Prescriptions: Continued atorvastatin [Lipitor] 40 mg tablet 40 mg PO HS Qty: 90 RF: 1 aspirin 81 mg tablet,delayed release (DR/EC) 81 mg PO QAM RF: 0 ferrous sulfate 325 mg (65 mg iron) tablet 325 mg PO QAM RF: 0 cyanocobalamin (vitamin B-12) 1,000 mcg tablet 1,000 mcg PO QAM Qty: 90 RF: 0 docusate sodium [Colace] 100 mg capsule 100 mg PO BID PRN (Reason: Constipation) RF: 0 dronabinol 2.5 mg capsule 5 mg PO BID Qty: 60 RF: 0 fluoxetine 20 mg tablet 20 mg PO QAM Qty: 270 RF: 1 (DME) pen needle, diabetic [BD Ultra-Fine Short Pen Needle] 31 gauge x 5/16" needle See Rx Instructions .ROUTE .MEDSUPPLY Qty: 100 RF: 1 (DME) OneTouch Ultra Blue Test Strip Strip See Rx Instructions .ROUTE .MEDSUPPLY Qty: 200 RF: 0 (DME) blood-glucose meter [OneTouch Ultra2 Meter] Misc See Rx Instructions .ROUTE .MEDSUPPLY Qty: 1 RF: 0 (DME) lancets [OneTouch Delica Plus Lancet] 30 gauge misc See Rx Instructions .ROUTE .MEDSUPPLY Qty: 200 RF: 0 cholecalciferol (vitamin D3) 5,000 unit Capsule 5,000 unit PO QAM RF: 0 magnesium oxide 400 mg magnesium capsule 400 mg PO QAM RF: 0 acetaminophen [Tylenol Extra Strength] 500 mg Tablet 500 mg PO Q6H PRN (Reason: Pain) RF: 0 melatonin 3 mg Tablet 9 mg PO HS RF: 0 polyethylene glycol 3350 [Miralax] 17 gram Powder In Packet 17 g PO DAILY PRN (Reason: constipation) Qty: 30 RF: 0 Changed metformin 500 mg tablet extended release 24 hr 500 mg PO BID Qty: 360 RF: 1 Discontinued insulin aspart U-100 [Novolog Flexpen U-100 Insulin] 100 unit/mL (3 mL) insulin pen See Rx Instructions .ROUTE .COMPLEX Qty: 15 RF: 1 Basaglar KwikPen U-100 Insulin 100 unit/mL (3 mL) insulin pen 7 unit subcut QAM RF: 0 furosemide [Lasix] 40 mg tablet 40 mg PO QAM RF: 0 Discharge Orders: Discharge Order (Routine); Ordered 05/26/20 Ordered By: Jorgito Farley/Other Patient Handouts: Preventing Deep Vein Thrombosis Admission Data Admit Date/Time: 05/24/20 10:20 Attending Provider: Jorgito Pate Admit Provider: Jorgito Pate Primary Care Provider: Barbara Calles Other Providers: Jorgito Pate Other Interventions: Discharge Summary Assessment (RN) Last Done: 05/26/20 11:43 Coding Level of Care Code 92649 OBS Care - Discharge Diagnoses Malignant neoplasm of pancreas C25.9 Shortness of breath R06.02 Anemia D64.9 Weakness R53.1 Acute kidney injury N17.9 S/P internal cardiac defibrillator procedure Z95.810 Chronic systolic CHF (congestive heart failure) I50.22 DM2 (diabetes mellitus, type 2) E11.9 Depression with anxiety F41.8 BPH with obstruction/lower urinary tract symptoms N40.1; N13.8 DVT prophylaxis Z29.9
== END 2020-05-26 13:00 | disposition home or self-care (01) ==
LOC: 3W 07:10 → ED 07:10 → 3W 11:58
DX: N13.8 Other obstructive and reflux uropathy; Z79.899 Other long term (current) drug therapy; Z87.891 Personal history of nicotine dependence; G47.00 Insomnia, unspecified; Z88.0 Allergy status to penicillin; N17.9 Acute kidney failure, unspecified; Z88.8 Allergy status to other drugs, medicaments and biological substances; K76.0 Fatty (change of) liver, not elsewhere classified; E55.9 Vitamin D deficiency, unspecified; C25.9 Malignant neoplasm of pancreas, unspecified; Z20.822 Contact with and (suspected) exposure to COVID-19; I42.9 Cardiomyopathy, unspecified; N40.1 Benign prostatic hyperplasia with lower urinary tract symptoms; D63.0 Anemia in neoplastic disease; F32.9 Major depressive disorder, single episode, unspecified; Z95.810 Presence of automatic (implantable) cardiac defibrillator; E11.9 Type 2 diabetes mellitus without complications; Z79.82 Long term (current) use of aspirin; E53.8 Deficiency of other specified B group vitamins; I25.10 Atherosclerotic heart disease of native coronary artery without angina pectoris; I50.22 Chronic systolic (congestive) heart failure

== ENCOUNTER 2020-08-07 12:31 | Observation (INO) ==
[2020-08-07] MEDS ORDERED: SODIUM CHLORIDE 0.9% 500 ML IV SCH (13:15)
--- NOTE | 2020-08-07 13:15 | Emergency Department Note ---
Impression & Plan Altered mental status, Pancreatic cancer, Hypotension, Acute dehydration, Pleural effusion, SOB (shortness of breath) ED Provider Note NAME: LEA HERNANDEZ AGE: 80 SEX: M : 1940 ARRIVES VIA: Ambulance INFORMANT: [][ems] ED PROVIDER(S): [Yousif Morrison MD] CHIEF COMPLAINT: Altered mental status HISTORY OF PRESENT ILLNESS: The patient is an 80-year-old male with pancreatic cancer. He is on hospice care. He is on oxygen at home. In the last few days, he has been altered, weak and more short of breath. The patient did have his first Covid vaccination over a week ago. He was fine initially after the injection but now seems to not be himself. There has been no fever, vomiting, diarrhea, cough or cold. He has not complained of abdominal pain. Patient is on morphine for help with his breathing. His last dose of morphine was at 2 AM, about 11 hours ago. The patient was taken off of hospice this morning so he could be sent to the ER. He presents by ambulance. In route, he was given a 300 cc saline bolus. Patient's states that she would like to know why he is altered, she does want a work-up performed. She is concerned about infection, stroke, vaccine reaction and medication reaction. The patient is currently nonverbal, no further history obtainable as result. REVIEW OF SYSTEMS: Unobtainable as the patient is currently nonverbal. PMHx/PSHx: See Below SOCIAL HISTORY: See Below. PHYSICAL EXAM: GENERAL: Patient is in no acute distress. HEENT: No acute trauma, normocephalic atraumatic, mucous membranes moist, no nasal congestion, no scleral icterus. NECK: No stridor, no adenopathy, no meningismus, trachea is midline. LUNGS: Decreased breath sounds on the left, the right lung seems clear. He does have a slightly increased respiratory rate and some very subtle accessory muscle use. HEART: Without murmurs gallops or rubs, regular rate and rhythm. ABDOMEN: Soft, nontender, bowel sounds positive, no peritonitis. EXTREMITIES: No cyanosis, mild bilateral pedal edema, full range of motion of all the joints without pain or difficulty, no signs for acute trauma. NEUROLOGIC: Seems to respond to pain and loud voice, seen to move all extremities. Very somnolent. Currently nonverbal. SKIN: No rash, no jaundice, no diaphoresis. Pale. DIFFERENTIAL DIAGNOSIS: Infection, dehydration, metabolic abnormality, COVID-19, sepsis, medication reaction, hypo/hyperglycemia, electrolyte disturbance, anemia, hypoxia, cardiac sources, intracerebral event, toxicologic issues, stroke, TIA, as well as other pathologies. EMERGENCY DEPARTMENT COURSE/PROCEDURES: ECG: Indication was weakness. The ECG shows a sinus rhythm with a first- degree AV block. There is a potential old inferior and lateral infarct. The rate is 96. There is some nonspecific ST change. No ST elevation. No PVCs. The QTc is 495. Compared to an ECG from 24 May 2020, criteria for the old lateral infarct now appear to be present. PVCs are no longer present. Continuous Cardiac Monitoring: An order was placed for continuous cardiac monitoring. The monitor shows a rate of 98 with sinus rhythm with a first- degree AV block. Critical Care Note: I have personally spent 48 minutes of critical care time in the direct management of this patient. This includes bedside care, interpretation of diagnostic studies, and testing, discussion with consultants, patient, and family members, and other required patient management activities. This 48 minutes is in excess of all separately billable procedures. MEDICAL DECISION MAKING: There is no leukocytosis. The patient is anemic however, he has a history of the same. Platelet count slightly low. ABG does not show any acidosis however, the CO2 was slightly elevated and the PO2 was low at 65. Renal panel testing does show some mild acute kidney injury with a creatinine of 1.47. Lactate was somewhat elevated 2.4, likely consistent with dehydration. There were some elevations to the liver enzymes, the liver enzyme elevations have been noted before. The ammonia level was normal. There is no evidence for issues with the patient's thyroid function. ECG showed a sinus rhythm with a first-degree AV block, no acute ischemia. Cardiac enzyme testing x1 is not consistent with acute cardiac injury. Urinalysis does not show infection. Tox screen shows opiates and possibly ecstasy. Covid and influenza testing returned negative. Brain CT shows no acute bleed or mass-effect. Chest x-ray shows some bilateral pleural effusions, worse on the left. The patient was on hospice recently, this was stopped today as per his . The patient presents short of breath and altered. He was found to be hypotensive. He does have pleural effusions, he shows findings on ABG for some CO2 retention and hypoxia. He is acutely dehydrated with an elevation to his creatinine. Certainly, all these findings could be contributing to his mental status change. His medications may also be contributing. Patient is being hospitalized. His does want him to stay in the hospital, she is not comfortable taking him home and does not want him back on hospice. Patient was given IV saline for hydration, 2/500 cc saline boluses were administered. He was maintained on nasal cannula oxygen. His blood pressure improved with the IV fluids. I spoke to the patient's , I talked to case management. The on-call hospitalist was consulted. Past Med/Surg History Medical History Anemia Asthmatic bronchitis BPH with obstruction/lower urinary tract symptoms CAD (coronary atherosclerotic disease) Cardiomyopathy, nonischemic s/p dual chamber AICD implantation 08/2017. EF 20-25% on most recent echo 06/2019. Chronic systolic CHF (congestive heart failure) Depression with anxiety DM2 (diabetes mellitus, type 2) Dyslipidemia Dyspnea on exertion Hepatic steatosis History of kidney stones HTN (hypertension) Hypoxia Hypoxia Insomnia Malignant neoplasm of pancreas With mets to lungs Malnutrition Mild sleep apnea Nephrolithiasis Non-sustained ventricular tachycardia Obesity, Class I, BMI 30-34.9 Osteoarthritis Psoriasis SOB (shortness of breath) Urinary frequency Urinary urgency Urination pain Vitamin B12 deficiency Vitamin D deficiency Surgical History H/O arthroplasty History of Achilles tendon repair History of arthroplasty of right knee History of cardiac cath History of cataract surgery History of colonoscopy History of esophagogastroduodenoscopy (EGD) History of lithotripsy History of PTCA History of total knee replacement Port-A-Cath in place (~08/28/19) S/P internal cardiac defibrillator procedure (09/19/17) Family History Father Acute myocardial infarction Heart disease Myocardial infarction Mother Cancer Family history of diabetes mellitus Denies family history of Ovarian cancer Prostate cancer Breast cancer Colorectal cancer Social History Smoking Status: Never smoker Tobacco Type: Cigarettes Cigarettes Per Day: patient states smoked 50 years ago; Second Hand Exposure: No; Hx Alcohol Use: No Hx Substance Use: No Preferred Language: Argentine Communication Ability: Effective Visual Impairment: No Limitations Hearing Ability: Normal [facility] Shift Lead Required: No Beliefs That Will Affect Care: None marital status: Current Living Situation: Spouse and Family current occupational status: retired Feels Safe at Home: Yes Childhood Exposure to Second-Hand Smoke: No caffeine: No during the past year weight has: remained stable Dental Care, Regularly: Yes Physical Activity Frequency: Daily Seatbelt Use: always Sunscreen Use: No Assistive Devices: Denture - Upper, Denture - Lower and Walker Allergies Allergies Allergy/AdvReac Type Severity Reaction Status Date / Time Penicillins Allergy Mild 35 YRS AGO Verified 08/07/20 15:12 DEVELOPED RASH sertraline Allergy Unknown DID NOT Verified 08/07/20 15:12 TOLERATE MED Home Meds Home Medications Medication Instructions Recorded Confirmed cholecalciferol (vitamin D3) 5,000 unit PO QAM 02/13/18 08/07/20 cyanocobalamin (vitamin B-12) 1,000 mcg PO QAM #90 tab 09/18/18 08/07/20 1,000 mcg tablet ferrous sulfate 325 mg (65 mg 325 mg PO QAM tab 09/18/18 08/07/20 iron) tablet aspirin 81 mg tablet,delayed 81 mg PO QAM tab 10/30/18 08/07/20 release docusate sodium 100 mg capsule 100 mg PO BID PRN 01/17/20 08/07/20 acetaminophen [Tylenol Extra 500 mg PO Q6H PRN 05/24/20 08/07/20 Strength] furosemide 40 mg tablet 60 mg PO QAM 05/28/20 08/07/20 lorazepam 0.25 - 0.5 mg PO HS PRN 08/07/20 08/07/20 morphine concentrate 0.5 mg PO DAILY PRN 08/07/20 08/07/20 trazodone 50 mg PO QPM 08/07/20 08/07/20 Previous Rx's Medication Instructions Recorded polyethylene glycol 3350 [Miralax] 17 g PO DAILY PRN #30 ea 05/08/20 dronabinol 2.5 mg capsule 5 mg PO BID #60 cap 05/15/20 metformin 500 mg PO BID #360 tab 05/26/20 atorvastatin 40 mg tablet 40 mg PO HS #90 tab 06/03/20 fluoxetine 20 mg tablet 40 mg PO QAM #270 tab 07/20/20 Results & Data (ED) Vital Signs Vital Signs - 24 hr 08/07/20 12:37 08/07/20 12:39 08/07/20 12:42 Temperature 36.5 C Temperature Source Oral Pulse Rate 94 H 109 H 110 H Pulse Rate from SpO2 Sensor 97 H 109 H Respiratory Rate 9 L 7 L 12 Blood Pressure 85/59 L 85/59 L Blood Pressure Mean 67 67 Pulse Oximetry 100 100 100 Oxygen Delivery Method Nasal Cannula Oxygen Flow Rate 3 Sepsis Recent Fever Within 48 Hours No Sepsis New/Unexplained Change in Mental Status N/A Sepsis Action Taken by Nursing No Action Required 08/07/20 13:00 08/07/20 13:01 08/07/20 13:30 Temperature Temperature Source Pulse Rate 90 87 91 H Pulse Rate from SpO2 Sensor 90 87 99 H Respiratory Rate 0 L 13 17 Blood Pressure 97/68 L 95/69 L Blood Pressure Mean 77 77 Pulse Oximetry 100 100 93 Oxygen Delivery Method Oxygen Flow Rate Sepsis Recent Fever Within 48 Hours Sepsis New/Unexplained Change in Mental Status Sepsis Action Taken by Nursing 08/07/20 13:31 08/07/20 14:11 08/07/20 14:13 Temperature Temperature Source Pulse Rate 96 H 112 H 111 H Pulse Rate from SpO2 Sensor 104 H 107 H Respiratory Rate 0 L 9 L 9 L Blood Pressure 93/73 L Blood Pressure Mean 79 Pulse Oximetry 100 100 98 Oxygen Delivery Method Room Air Oxygen Flow Rate 3 Sepsis Recent Fever Within 48 Hours Sepsis New/Unexplained Change in Mental Status Sepsis Action Taken by Nursing 08/07/20 14:30 08/07/20 14:31 08/07/20 15:00 Temperature Temperature Source Pulse Rate 108 H 106 H 107 H Pulse Rate from SpO2 Sensor 110 H 105 H 106 H Respiratory Rate 10 L 19 4 L Blood Pressure 102/75 103/78 Blood Pressure Mean 84 86 Pulse Oximetry 100 99 100 Oxygen Delivery Method Oxygen Flow Rate Sepsis Recent Fever Within 48 Hours Sepsis New/Unexplained Change in Mental Status Sepsis Action Taken by Nursing 08/07/20 15:01 08/07/20 15:30 08/07/20 15:31 Temperature Temperature Source Pulse Rate 92 H 99 H 99 H Pulse Rate from SpO2 Sensor 92 H 101 H 99 H Respiratory Rate 19 11 L 11 L Blood Pressure 92/68 L Blood Pressure Mean 76 Pulse Oximetry 99 100 100 Oxygen Delivery Method Oxygen Flow Rate Sepsis Recent Fever Within 48 Hours Sepsis New/Unexplained Change in Mental Status Sepsis Action Taken by Nursing 08/07/20 16:00 08/07/20 16:01 08/07/20 16:30 Temperature Temperature Source Pulse Rate 99 H 88 111 H Pulse Rate from SpO2 Sensor 93 H 88 110 H Respiratory Rate 12 11 L 16 Blood Pressure 93/72 L 101/70 Blood Pressure Mean 79 80 Pulse Oximetry 100 100 96 Oxygen Delivery Method Oxygen Flow Rate Sepsis Recent Fever Within 48 Hours Sepsis New/Unexplained Change in Mental Status Sepsis Action Taken by Nursing 08/07/20 16:31 08/07/20 17:00 08/07/20 17:30 Temperature Temperature Source Pulse Rate 102 H 100 H 101 H Pulse Rate from SpO2 Sensor 104 H 99 H 101 H Respiratory Rate 4 L 2 L 7 L Blood Pressure 88/65 L 86/60 L Blood Pressure Mean 72 68 Pulse Oximetry 100 100 100 Oxygen Delivery Method Oxygen Flow Rate Sepsis Recent Fever Within 48 Hours Sepsis New/Unexplained Change in Mental Status Sepsis Action Taken by Nursing 08/07/20 17:31 08/07/20 18:00 08/07/20 18:01 Temperature Temperature Source Pulse Rate 100 H 101 H 103 H Pulse Rate from SpO2 Sensor 97 H 101 H 107 H Respiratory Rate 12 8 L 12 Blood Pressure 86/60 L Blood Pressure Mean 68 Pulse Oximetry 100 100 81 L Oxygen Delivery Method Oxygen Flow Rate Sepsis Recent Fever Within 48 Hours Sepsis New/Unexplained Change in Mental Status Sepsis Action Taken by Nursing 08/07/20 18:02 08/07/20 18:03 Temperature Temperature Source Pulse Rate 96 H 103 H Pulse Rate from SpO2 Sensor 100 H 100 H Respiratory Rate 12 7 L Blood Pressure 90/50 L 192/88 H Blood Pressure Mean 63 122 Pulse Oximetry 100 100 Oxygen Delivery Method Oxygen Flow Rate Sepsis Recent Fever Within 48 Hours Sepsis New/Unexplained Change in Mental Status Sepsis Action Taken by Assisted Medications Current Medication List: was personally reviewed by me Laboratory Data Attestation: I reviewed the patient's lab results. Result diagrams: 08/07/20 14:37 08/07/20 14:37 Lab Results 08/07/20 08/07/20 08/07/20 Range/Units 13:28 13:28 14:26 WBC (4.8-10.8) K/uL RBC (4.7-6.1) M/uL Hgb (14.0-18.0) g/dL Hct (42-52) % MCV (80-100) fL MCH (25-34) pg MCHC (32-36) g/dL RDW Std Deviation (36.4-46.3) fL RDW Coeff of Skyler (11.5-14.5) % Plt Count (130-400) K/uL MPV (7.4-10.4) fL Immature Gran % (Auto) % Neut % (Auto) % Lymph % (Auto) % [place] % (Auto) % Eos % (Auto) % Baso % (Auto) % Neut # (Auto) (1.4-6.5) K/uL Lymph # (Auto) (1.2-3.4) K/uL [place] # (Auto) (0.11-0.59) K/uL Eos # (Auto) (0-0.5) K/uL Baso # (Auto) (0-0.2) K/uL Immature Gran # (Auto) (0.00-0.02) K/uL ABG pH 7.38 (7.35-7.45) ABG pCO2 48 H (35-46) mmHg ABG pO2 65 L (80-95) mmHg ABG HCO3 28 H (19-24) mmol/L ABG O2 Saturation 90.8 (90-95) % ABG Base Excess 2.0 H (-9-1.8) mEq/L Josh Test Pos (Pos) Barometric Pressure 733.1 mm/Hg Oxygen Given 3L Sodium (136-145) mmol/L Potassium (3.5-5.1) mmol/L Chloride (98-107) mmol/L Carbon Dioxide (21-32) mmol/L Anion Gap (3-11) BUN (7-18) mg/dl Creatinine (0.6-1.4) mg/dl Est Cr Clr Drug Dosing ml/min Est GFR ( Amer) Est GFR (Non-Af Amer) BUN/Creatinine Ratio (10-20) Glucose (70-99) mg/dl Lactate (0.4-2.0) mmol/L Calcium (8.5-10.1) mg/dl Magnesium (1.8-2.4) mg/dl Total Bilirubin (0.2-1) mg/dl AST (15-37) U/L ALT (12-78) U/L Alkaline Phosphatase (45-117) U/L Ammonia (11-32) umol/L Troponin I (0-0.045) ng/ml Total Protein (6.4-8.2) gm/dl Albumin (3.4-5.0) gm/dl Globulin (2.5-4.0) gm/dl Albumin/Globulin Ratio (0.9-2) TSH (0.300-4.500) uIu/ml Specimen Hemolysis Urine Color Urine Appearance (Clear) Urine pH (4.5-7.5) Ur Specific [place] (1.000-1.030) Urine Protein (Negative) Urine Glucose (UA) (Negative) Urine Ketones (Negative) Urine Blood (Negative) Urine Nitrite (Negative) Urine Bilirubin (Negative) Urine Urobilinogen (Negative) Ur Leukocyte Esterase (Negative) Urine WBC (Auto) (0-5) /hpf Urine RBC (Auto) (0-4) /hpf U Hyaline Cast (Auto) (0-5) /lpf U Epithel Cells (Auto) (0-5) /lpf Urine Bacteria (Auto) (Negative) Urine Crystals Amorphous Sediment (None Prsent) Urine Opiates Screen (Neg) Ur Methadone, Qual (Neg) Urine Barbiturates (Neg) Ur Phencyclidine (PCP) (Neg) U Amphetamin/Meth Scrn (Neg) MDMA (Ecstasy) Screen (Neg) U Benzodiazepines Scrn (Neg) Ur Cocaine Metabolite (Neg) U Marijuana (THC) Screen (Neg) COVID-19 Eval Order CovFluRsv at [facility] SARS-CoV-2 (PCR) NEGATIVE (Negative) Influenza Type A (PCR) Negative (Neg) Influenza Type B (PCR) Negative (Neg) RSV (RT-PCR) Negative (Neg) 08/07/20 08/07/20 08/07/20 Range/Units 14:37 14:37 14:37 WBC 6.11 (4.8-10.8) K/uL RBC 3.34 L (4.7-6.1) M/uL Hgb 10.3 L (14.0-18.0) g/dL Hct 31.8 L (42-52) % MCV 95.2 (80-100) fL MCH 30.8 (25-34) pg MCHC 32.4 (32-36) g/dL RDW Std Deviation 62.0 H (36.4-46.3) fL RDW Coeff of Skyler 17.8 H (11.5-14.5) % Plt Count 126 L (130-400) K/uL MPV 10.4 (7.4-10.4) fL Immature Gran % (Auto) 0.2 % Neut % (Auto) 84.6 % Lymph % (Auto) 7.2 % Sutton % (Auto) 7.7 % Eos % (Auto) 0.3 % Baso % (Auto) 0.0 % Neut # (Auto) 5.17 (1.4-6.5) K/uL Lymph # (Auto) 0.44 L (1.2-3.4) K/uL Sutton # (Auto) 0.47 (0.11-0.59) K/uL Eos # (Auto) 0.02 (0-0.5) K/uL Baso # (Auto) 0.00 (0-0.2) K/uL Immature Gran # (Auto) 0.01 (0.00-0.02) K/uL ABG pH (7.35-7.45) ABG pCO2 (35-46) mmHg ABG pO2 (80-95) mmHg ABG HCO3 (19-24) mmol/L ABG O2 Saturation (90-95) % ABG Base Excess (-9-1.8) mEq/L Josh Test (Pos) Barometric Pressure mm/Hg Oxygen Given Sodium 140 (136-145) mmol/L Potassium 3.8 (3.5-5.1) mmol/L Chloride 105 (98-107) mmol/L Carbon Dioxide 28 (21-32) mmol/L Anion Gap 7.0 (3-11) BUN 42 H (7-18) mg/dl Creatinine 1.47 H (0.6-1.4) mg/dl Est Cr Clr Drug Dosing 43.7 ml/min Est GFR ( Amer) 51.5 Est GFR (Non-Af Amer) 44.4 BUN/Creatinine Ratio 28.8 H (10-20) Glucose 129 H (70-99) mg/dl Lactate 2.4 H* (0.4-2.0) mmol/L Calcium 8.4 L (8.5-10.1) mg/dl Magnesium 1.9 (1.8-2.4) mg/dl Total Bilirubin 2.6 H (0.2-1) mg/dl AST 110 H (15-37) U/L ALT 110 H (12-78) U/L Alkaline Phosphatase 117 (45-117) U/L Ammonia (11-32) umol/L Troponin I 0.023 (0-0.045) ng/ml Total Protein 6.3 L (6.4-8.2) gm/dl Albumin 2.8 L (3.4-5.0) gm/dl Globulin 3.5 (2.5-4.0) gm/dl Albumin/Globulin Ratio 0.8 L (0.9-2) TSH 2.630 (0.300-4.500) uIu/ml Specimen Hemolysis Urine Color Urine Appearance (Clear) Urine pH (4.5-7.5) Ur Specific [place] (1.000-1.030) Urine Protein (Negative) Urine Glucose (UA) (Negative) Urine Ketones (Negative) Urine Blood (Negative) Urine Nitrite (Negative) Urine Bilirubin (Negative) Urine Urobilinogen (Negative) Ur Leukocyte Esterase (Negative) Urine WBC (Auto) (0-5) /hpf Urine RBC (Auto) (0-4) /hpf U Hyaline Cast (Auto) (0-5) /lpf U Epithel Cells (Auto) (0-5) /lpf Urine Bacteria (Auto) (Negative) Urine Crystals Amorphous Sediment (None Prsent) Urine Opiates Screen (Neg) Ur Methadone, Qual (Neg) Urine Barbiturates (Neg) Ur Phencyclidine (PCP) (Neg) U Amphetamin/Meth Scrn (Neg) MDMA (Ecstasy) Screen (Neg) U Benzodiazepines Scrn (Neg) Ur Cocaine Metabolite (Neg) U Marijuana (THC) Screen (Neg) COVID-19 Eval Order SARS-CoV-2 (PCR) (Negative) Influenza Type A (PCR) (Neg) Influenza Type B (PCR) (Neg) RSV (RT-PCR) (Neg) 08/07/20 08/07/20 08/07/20 Range/Units 14:37 14:50 14:50 WBC (4.8-10.8) K/uL RBC (4.7-6.1) M/uL Hgb (14.0-18.0) g/dL Hct (42-52) % MCV (80-100) fL MCH (25-34) pg MCHC (32-36) g/dL RDW Std Deviation (36.4-46.3) fL RDW Coeff of Skyler (11.5-14.5) % Plt Count (130-400) K/uL MPV (7.4-10.4) fL Immature Gran % (Auto) % Neut % (Auto) % Lymph % (Auto) % Sutton % (Auto) % Eos % (Auto) % Baso % (Auto) % Neut # (Auto) (1.4-6.5) K/uL Lymph # (Auto) (1.2-3.4) K/uL [place] # (Auto) (0.11-0.59) K/uL Eos # (Auto) (0-0.5) K/uL Baso # (Auto) (0-0.2) K/uL Immature Gran # (Auto) (0.00-0.02) K/uL ABG pH (7.35-7.45) ABG pCO2 (35-46) mmHg ABG pO2 (80-95) mmHg ABG HCO3 (19-24) mmol/L ABG O2 Saturation (90-95) % ABG Base Excess (-9-1.8) mEq/L Josh Test (Pos) Barometric Pressure mm/Hg Oxygen Given Sodium (136-145) mmol/L Potassium (3.5-5.1) mmol/L Chloride (98-107) mmol/L Carbon Dioxide (21-32) mmol/L Anion Gap (3-11) BUN (7-18) mg/dl Creatinine (0.6-1.4) mg/dl Est Cr Clr Drug Dosing ml/min Est GFR ( Amer) Est GFR (Non-Af Amer) BUN/Creatinine Ratio (10-20) Glucose (70-99) mg/dl Lactate (0.4-2.0) mmol/L Calcium (8.5-10.1) mg/dl Magnesium (1.8-2.4) mg/dl Total Bilirubin (0.2-1) mg/dl AST (15-37) U/L ALT (12-78) U/L Alkaline Phosphatase (45-117) U/L Ammonia < 10.0 L (11-32) umol/L Troponin I (0-0.045) ng/ml Total Protein (6.4-8.2) gm/dl Albumin (3.4-5.0) gm/dl Globulin (2.5-4.0) gm/dl Albumin/Globulin Ratio (0.9-2) TSH (0.300-4.500) uIu/ml Specimen Hemolysis Urine Color Dark Yellow Urine Appearance Clear (Clear) Urine pH 5.0 (4.5-7.5) Ur Specific [place] 1.018 (1.000-1.030) Urine Protein Trace H (Negative) Urine Glucose (UA) Negative (Negative) Urine Ketones Trace H (Negative) Urine Blood Negative (Negative) Urine Nitrite Negative (Negative) Urine Bilirubin 1+ H (Negative) Urine Urobilinogen Negative (Negative) Ur Leukocyte Esterase Negative (Negative) Urine WBC (Auto) 1-5 (0-5) /hpf Urine RBC (Auto) 5-10 H (0-4) /hpf U Hyaline Cast (Auto) 5-10 H (0-5) /lpf U Epithel Cells (Auto) 0-5 (0-5) /lpf Urine Bacteria (Auto) Negative (Negative) Urine Crystals Not Reportable Amorphous Sediment Present A (None Prsent) Urine Opiates Screen Pos H (Neg) Ur Methadone, Qual Neg (Neg) Urine Barbiturates Neg (Neg) Ur Phencyclidine (PCP) Neg (Neg) U Amphetamin/Meth Scrn Neg (Neg) MDMA (Ecstasy) Screen Pos H (Neg) U Benzodiazepines Scrn Neg (Neg) Ur Cocaine Metabolite Neg (Neg) U Marijuana (THC) Screen Neg (Neg) COVID-19 Eval Order SARS-CoV-2 (PCR) (Negative) Influenza Type A (PCR) (Neg) Influenza Type B (PCR) (Neg) RSV (RT-PCR) (Neg) Administered Medications Discontinued Medications Sodium Chloride (Nss) 500 mls @ 999 mls/hr IV .Q31M ELIANA Stop: 08/07/20 13:45 Last Infusion: 08/07/20 14:06 Dose: 0 mls/hr Documented by: [id number] Admin: 08/07/20 13:25 Dose: 999 mls/hr Documented by: [id number] Sodium Chloride (Nss 1000ml) 500 mls @ 999 mls/hr IV .Q31M ONE Stop: 08/07/20 16:17 Last Infusion: 08/07/20 16:55 Dose: 0 mls/hr Documented by: [id number] Admin: 08/07/20 16:17 Dose: 999 mls/hr Documented by: [id number] Imaging Data Radiologist's Impression: Chest X-Ray 08/07/20 13:09 XR chest 1V portable HISTORY: 80 years-old Male weakness acute weakness COMPARISON: 05/28/2020 TECHNIQUE: Portable AP view of the chest FINDINGS: Cardiac megaly. Right IJ [id number] catheter distal tip overlies the right atrium. Left subclavian pacer/AICD. Left greater than right pleural effusions with bibasilar consolidation. Pulmonary vascular congestion with interstitial coarsening. Degenerative changes of the shoulders and spine. IMPRESSION: 1. Cardiomegaly with pulmonary edema. 2. Left greater than right pleural effusions with bibasilar consolidation. ACT 112: Negative or not required by law. The above report was generated using voice recognition software. It may contain grammatical, syntax or spelling errors. Electronically signed by: Keven Harry M.D. 08/07/2020 1:[address] 08/07/20 13:09 CT OF THE HEAD WITHOUT CONTRAST CLINICAL HISTORY: Confusion. COMPARISON STUDY: Head CT May 19, 2020. CT DOSE: 1842.80 mGy.cm TECHNIQUE: Helical axial images of the head were obtained without IV contrast. Automated exposure control was utilized for the study. A dose lowering technique was utilized adhering to the principles of ALARA. FINDINGS: No acute intracranial hemorrhage, midline shift or mass effect is present. Ventricular system is stable. Basilar cisterns are patent. There are no extra-axial collections. There are no findings to suggest acute dural sinus thrombosis or acute territorial infarct. 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 There is no calvarial fracture. There is mild sinus mucosal thickening. Gas within the left orbit and cavernous sinus is related to IV. IMPRESSION: No acute intracranial findings. No change in appearance of the brain. ACT 112: Negative or not required by law. Electronically signed by: Viet Badillo M.D. 08/07/2020 2:16 PM Discharge Plan Visit Data Chief Complaint: Altered Mental Status Stated Complaint: AMS ED Provider: Yousif Morrison Discharge Problem: Altered mental status, Pancreatic cancer, Hypotension, Acute dehydration, Pleural effusion, SOB (shortness of breath) Patient Disposition: Admitted As Inpatient Condition: Fair Forms Stand Alone Forms: [facility] [place] In Flow Prescriptions Prescriptions: No Action atorvastatin [Lipitor] 40 mg tablet 40 mg PO HS Qty: 90 RF: 1 fluoxetine 20 mg tablet 40 mg PO QAM Qty: 270 RF: 1 aspirin 81 mg tablet,delayed release (DR/EC) 81 mg PO QAM RF: 0 ferrous sulfate 325 mg (65 mg iron) tablet 325 mg PO QAM RF: 0 cyanocobalamin (vitamin B-12) 1,000 mcg tablet 1,000 mcg PO QAM Qty: 90 RF: 0 docusate sodium [Colace] 100 mg capsule 100 mg PO BID PRN (Reason: Constipation) RF: 0 dronabinol 2.5 mg capsule 5 mg PO BID Qty: 60 RF: 0 furosemide [Lasix] 40 mg tablet 60 mg PO QAM RF: 0 cholecalciferol (vitamin D3) 5,000 unit Capsule 5,000 unit PO QAM RF: 0 acetaminophen [Tylenol Extra Strength] 500 mg Tablet 500 mg PO Q6H PRN (Reason: Pain) RF: 0 metformin 500 mg tablet extended release 24 hr 500 mg PO BID Qty: 360 RF: 1 polyethylene glycol 3350 [Miralax] 17 gram Powder In Packet 17 g PO DAILY PRN (Reason: constipation) Qty: 30 RF: 0 trazodone 100 mg tablet 50 mg PO QPM RF: 0 lorazepam 0.5 mg tablet 0.25 - 0.5 mg PO HS PRN (Reason: Insomnia) RF: 0 morphine concentrate 100 mg/5 mL (20 mg/mL) Solution 0.5 mg PO DAILY PRN (Reason: Pain) RF: 0 Referrals Referrals: Barbara Calles DO [Primary Care Provider] - Discharge Problem: Altered mental status Qualifiers: Altered mental status type: somnolence Qualified Code(s): R40.0 - Somnolence Pancreatic cancer Qualifiers: Pancreatic malignancy location: unspecified Qualified Code(s): C25.9 - Malignant neoplasm of pancreas, unspecified Hypotension Qualifiers: Hypotension type: unspecified hypotension type Qualified Code(s): I95.9 - Hypotension, unspecified
--- NOTE | 2020-08-07 13:54 | XRay Report ---
XR chest 1V portable HISTORY: 80 years-old Male weakness acute weakness COMPARISON: 05/28/2020 TECHNIQUE: Portable AP view of the chest FINDINGS: Cardiac megaly. Right IJ [id number] catheter distal tip overlies the right atrium. Left subclavian pacer/AICD. Left greater than right pleural effusions with bibasilar consolidation. Pulmonary vascul ar congestion with interstitial coarsening. Degenerative changes of the shoulders and spine. IMPRESSION: 1. Cardiomegaly with pulmonary edema. 2. Left greater than right pleural effusions with bibasilar consolidation. ACT 112: Negative or not required by law. The above report was generated using voice recognition software. It may contain grammatical, syntax o r spelling errors. Electronically signed by: Keven Harry M.D. 08/07/2020 1:52 PM
--- NOTE | 2020-08-07 14:18 | CT Scan Report ---
CT OF THE HEAD WITHOUT CONTRAST CLINICAL HISTORY: Confusion. COMPARISON STUDY: Head CT May 19, 2020. CT DOSE: 1842.80 mGy.cm TECHNIQUE: Helical axial images of the head were obtained without IV contrast. Automated exposure con trol was utilized for the study. A dose lowering technique was utilized adhering to the principles o f ALARA. FINDINGS: No acute intracranial hemorrhage, midline shift or mass effect is present. Ventricular syst em is stable. Basilar cisterns are patent. There are no extra-axial collections. There are no finding s to suggest acute dural sinus thrombosis or acute territorial infarct. 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 There is no calvarial fracture. There is mild sinus mucosal thickening. Ga s within the left orbit and cavernous sinus is related to IV. IMPRESSION: No acute intracranial findings. No change in appearance of the brain. ACT 112: Negative or not required by law. Electronically signed by: Viet Badillo M.D. 08/07/2020 2:16 PM
[2020-08-07 14:34] LABS: Influenza A virus by PCR Negative (Neg); Influenza B virus by PCR Negative (Neg); RSV by PCR Negative (Neg); SARS CoV2 RNA(COVID-19) InHosp NEGATIVE (Negative)
[2020-08-07 14:36] LABS: Allen Test Pos (Pos); HCO3 ABG 28 mmol/L (19-24); Oxygen Saturation ABG 90.8 % (90-95); PCO2 ABG 48 mmHg (35-46); PO2 ABG 65 mmHg (80-95); pH ABG 7.38 (7.35-7.45)
[2020-08-07 14:52] LABS: Eosinophils # (auto) 0.02 K/uL (0-0.5); Eosinophils % (auto) 0.3 %; Hematocrit (blood only) 31.8 % (42-52); Hemoglobin 10.3 g/dL (14.0-18.0); Immature Granulocytes # (auto) 0.01 K/uL (0.00-0.02); Immature Granulocytes % (auto) 0.2 %; Lymphocytes # (auto) 0.44 K/uL (1.2-3.4); Lymphocytes % (auto) 7.2 %; Mean Corpuscular Hemoglobin 30.8 pg (25-34); Mean Corpuscular Hgb Conc 32.4 g/dL (32-36); Mean Corpuscular Volume 95.2 fL (80-100); Mean Platelet Volume 10.4 fL (7.4-10.4); Monocytes # (auto) 0.47 K/uL (0.11-0.59); Monocytes % (auto) 7.7 %; Neutrophils # (auto) 5.17 K/uL (1.4-6.5); Neutrophils % (auto) 84.6 %; Platelet Count 126 K/uL (130-400); RDW Coefficient of Variation 17.8 % (11.5-14.5); Red Blood Count 3.34 M/uL (4.7-6.1); White Blood Count 6.11 K/uL (4.8-10.8)
[2020-08-07 15:17] LABS: Appearance Urine Clear (Clear); Bacteria Urine Automated Negative (Negative); Blood Urine Negative (Negative); Color Urine Dark Yellow; Epithelial Cell Urine Auto 0-5 /lpf (0-5); Glucose Urine UA Negative (Negative); Ketones Urine Trace (Negative); Leukocyte Esterase Urine Negative (Negative); Nitrite Urine Negative (Negative); Protein Urine Trace (Negative); Specific Gravity Urine 1.018 (1.000-1.030); Urobilinogen Urine Negative (Negative)
[2020-08-07 15:29] LABS: Albumin Globulin Ratio 0.8 (0.9-2); Albumin Level 2.8 gm/dl (3.4-5.0); BUN Creatinine Ratio 28.8 (10-20); Bilirubin,Total 2.6 mg/dl (0.2-1); Calcium 8.4 mg/dl (8.5-10.1); Creatinine Clr Calc Pharmacy 43.7 ml/min; Est GFR (African American) 51.5; Est GFR (Non-African American) 44.4; Globulin 3.5 gm/dl (2.5-4.0); Magnesium 1.9 mg/dl (1.8-2.4); Potassium 3.8 mmol/L (3.5-5.1); Thyroid Stimulating Hormone 2.63 uIu/ml (0.300-4.500); Total Protein 6.3 gm/dl (6.4-8.2); Troponin I 0.023 ng/ml (0-0.045)
[2020-08-07 15:37] LABS: Bilirubin Urine 1+ (Negative)
[2020-08-07] MEDS ORDERED: SODIUM CHLORIDE 0.9% 1000ML 500 ML IV ONE (15:47)
[2020-08-07 15:50] LABS: Amorphous Sediment Urine Present (None Prsent)
[2020-08-07 15:57] LABS: Amphetamines+Metham, Urine Neg (Neg); Barbiturates, Urine Neg (Neg); Benzodiazepine, Urine Neg (Neg); Cocaine, Urine Neg (Neg); MDMA (Ecstacy), Urine Pos (Neg); Methadone, Urine Neg (Neg); Opiate, Urine Pos (Neg); Phencyclidine, Urine Neg (Neg)
--- NOTE | 2020-08-07 18:00 | History & Physical Report ---
Date of Service August 07, 2020 Assessment & Plan (1) Pancreatic cancer: Stage IV metastatic adenocarcinoma - Goal as above, attempt reversing progressive organ dysfunction with hydration - Patient can eat and drink as he tolerates - If patient progresses and worsens support with palliative care (2) YELENA (acute kidney injury): As above- BMP in the morning (3) Altered mental status: As above, see if mentation clears with organ dysfunction improvement. (4) Palliative care encounter: As above, 20 minutes spent discussing patient case and goals of care with and patient. Reviewed abnormal labs and treatemnts of reversible cause/pathologies. 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 He was enrolled in hospice in June secondary to inability to tolerate treatment and disease progression. He does have a dual chamber ICD which he has declined to not turn off. He has been functioning well at home and still able to get up and go outside, walk around, and continue to remain semi-independent with his ADLs and dietary intake, he is on oxygen at home. The patient received his COVID vaccine ~ 1 week ago. His reports that over the past 3-4 days he has been more fatigued and short of breath and he has also had a decrease in is oral intake. He is on Morphine at home for his breathing, and he received a dose this morning at 0300. He was brought into the EMD as his removed him from palliative care today because of perceived no benefit. She feels that she is providing him all his medical care, administering his Meds and providing the nursing care. She was concerned for his increase in fatigue and somnolence. In the EMD he had a CT scan of the head which did not show any acute processes, he also had extensive workup, looking for infective causes and/or metabolic encephalolithic causes. Labwork revealed an YELENA and elevated LFTs. The hospitalist team was notified for admission evaluation. I had an extensive conversation with the patient's regarding the above lab work and treatable causes for his mentation and evidence of progression of organ dysfunction. The patient is progressing with his heart failure and organ dysfunction worsening from decreased intake. In regards to his renal function, Will attempt IVF resuscitation - he received (~800 ml of crystalloid upon arrival to the [facility]) and if no improvement in his organ function/mentation then the would like to take him back home for his transition. If he has evidence of pulmonary edema worsening, we will stop his IVF. Allergies Allergy/AdvReac Type Severity Reaction Status Date / Time Penicillins Allergy Mild 35 YRS AGO Verified 08/07/20 15:12 DEVELOPED RASH sertraline Allergy Unknown DID NOT Verified 08/07/20 15:12 TOLERATE MED Home Medications Medication Instructions Recorded Confirmed Type lorazepam 0.25 - 0.5 mg PO HS PRN 08/07/20 08/07/20 History morphine concentrate 0.5 mg PO DAILY PRN 08/07/20 08/07/20 History Past Med/Surg History Medical History Anemia Asthmatic bronchitis BPH with obstruction/lower urinary tract symptoms CAD (coronary atherosclerotic disease) Cardiomyopathy, nonischemic s/p dual chamber AICD implantation 08/2017. EF 20-25% on most recent echo 06/2019. Chronic systolic CHF (congestive heart failure) Depression with anxiety DM2 (diabetes mellitus, type 2) Dyslipidemia Dyspnea on exertion Hepatic steatosis History of kidney stones HTN (hypertension) Hypoxia Hypoxia Insomnia Malignant neoplasm of pancreas With mets to lungs Malnutrition Mild sleep apnea Nephrolithiasis Non-sustained ventricular tachycardia Obesity, Class I, BMI 30-34.9 Osteoarthritis Psoriasis SOB (shortness of breath) Urinary frequency Urinary urgency Urination pain Vitamin B12 deficiency Vitamin D deficiency Surgical History H/O arthroplasty History of Achilles tendon repair History of arthroplasty of right knee History of cardiac cath History of cataract surgery History of colonoscopy History of esophagogastroduodenoscopy (EGD) History of lithotripsy History of PTCA History of total knee replacement Port-A-Cath in place (~08/28/19) S/P internal cardiac defibrillator procedure (09/19/17) Family History Father Acute myocardial infarction Heart disease Myocardial infarction Mother Cancer Family history of diabetes mellitus Denies family history of Ovarian cancer Prostate cancer Breast cancer Colorectal cancer Social History Smoking Status: Former smoker Tobacco Type: Cigarettes Cigarettes Per Day: patient states smoked 50 years ago; Second Hand Exposure: No; Hx Alcohol Use: No Hx Substance Use: No Preferred Language: Cambodian Communication Ability: Effective Visual Impairment: No Limitations Hearing Ability: Normal Trim Carpenter Required: No Beliefs That Will Affect Care: None marital status: Current Living Situation: Spouse current occupational status: retired Feels Safe at Home: Yes Childhood Exposure to Second-Hand Smoke: No caffeine: No during the past year weight has: remained stable Dental Care, Regularly: Yes Physical Activity Frequency: Daily Seatbelt Use: always Sunscreen Use: No Assistive Devices: Denture - Upper and Glasses Review of Systems Review of Systems: As per HPI, patient is sommulent. Information obtained from Physical Exam Physical Exam: PHYSICAL EXAM: General: somnolent, opens eyes to trapezius squeeze and makes eye contact then closes his eyes Head: Normocephalic, atraumatic ENT: PERRLA, no pharyngeal exudate, mucous membranes moist Neuro: AAO x 0, followed command to squeeze fingers, and does reposition feet. Chest: equal rise and fall of the chest, no accessory muscle use, no heaves or thrills, scattered crackles, on room air, Cardiac: Regular rate and rhythm, telemetry reviewed, skin warm dry, cap refill <3 seconds, peripheral pulses +2 no JVD, no murmur, no edema GI: NABS x 4 quadrants, soft, nontender to palpation, no rebound, guarding or tenderness : Spontaneously voiding, no pain, no CVA tenderness, Extremities: Normal inspection, no peripheral edema or erythema, calfs nontender to palpation Psych: Normal mood and affect Skin: no rash or erythema Results & Data Results & Data ([facility]) Vital Signs (Past 12 Hours) Vital Signs Temp Pulse Resp BP Pulse Ox 08/07/20 15:01 92 H 19 99 08/07/20 15:00 107 H 4 L 103/78 100 08/07/20 14:31 106 H 19 99 08/07/20 14:30 108 H 10 L 102/75 100 08/07/20 14:13 111 H 9 L 93/73 L 98 08/07/20 14:11 112 H 9 L 100 08/07/20 13:31 96 H 0 L 100 08/07/20 13:30 91 H 17 95/69 L 93 08/07/20 13:01 87 13 100 08/07/20 13:00 90 0 L 97/68 L 100 08/07/20 12:42 36.5 C 110 H 12 85/59 L 100 08/07/20 12:39 109 H 7 L 100 08/07/20 12:37 94 H 9 L 85/59 L 100 Laboratory Results Abnormal lab results 08/07/20 08/07/20 08/07/20 Range/Units 14:26 14:37 14:37 RBC 3.34 L (4.7-6.1) M/uL Hgb 10.3 L (14.0-18.0) g/dL Hct 31.8 L (42-52) % RDW Std Deviation 62.0 H (36.4-46.3) fL RDW Coeff of Skyler 17.8 H (11.5-14.5) % Plt Count 126 L (130-400) K/uL Lymph # (Auto) 0.44 L (1.2-3.4) K/uL ABG pCO2 48 H (35-46) mmHg ABG pO2 65 L (80-95) mmHg ABG HCO3 28 H (19-24) mmol/L ABG Base Excess 2.0 H (-9-1.8) mEq/L BUN 42 H (7-18) mg/dl Creatinine 1.47 H (0.6-1.4) mg/dl BUN/Creatinine Ratio 28.8 H (10-20) Glucose 129 H (70-99) mg/dl Lactate (0.4-2.0) mmol/L Calcium 8.4 L (8.5-10.1) mg/dl Total Bilirubin 2.6 H (0.2-1) mg/dl AST 110 H (15-37) U/L ALT 110 H (12-78) U/L Ammonia (11-32) umol/L Total Protein 6.3 L (6.4-8.2) gm/dl Albumin 2.8 L (3.4-5.0) gm/dl Albumin/Globulin Ratio 0.8 L (0.9-2) Urine Protein (Negative) Urine Ketones (Negative) Urine Bilirubin (Negative) Urine RBC (Auto) (0-4) /hpf U Hyaline Cast (Auto) (0-5) /lpf Amorphous Sediment (None Prsent) Urine Opiates Screen (Neg) MDMA (Ecstasy) Screen (Neg) 08/07/20 08/07/20 08/07/20 Range/Units 14:37 14:37 14:50 RBC (4.7-6.1) M/uL Hgb (14.0-18.0) g/dL Hct (42-52) % RDW Std Deviation (36.4-46.3) fL RDW Coeff of Skyler (11.5-14.5) % Plt Count (130-400) K/uL Lymph # (Auto) (1.2-3.4) K/uL ABG pCO2 (35-46) mmHg ABG pO2 (80-95) mmHg ABG HCO3 (19-24) mmol/L ABG Base Excess (-9-1.8) mEq/L BUN (7-18) mg/dl Creatinine (0.6-1.4) mg/dl BUN/Creatinine Ratio (10-20) Glucose (70-99) mg/dl Lactate 2.4 H* (0.4-2.0) mmol/L Calcium (8.5-10.1) mg/dl Total Bilirubin (0.2-1) mg/dl AST (15-37) U/L ALT (12-78) U/L Ammonia < 10.0 L (11-32) umol/L Total Protein (6.4-8.2) gm/dl Albumin (3.4-5.0) gm/dl Albumin/Globulin Ratio (0.9-2) Urine Protein Trace H (Negative) Urine Ketones Trace H (Negative) Urine Bilirubin 1+ H (Negative) Urine RBC (Auto) 5-10 H (0-4) /hpf U Hyaline Cast (Auto) 5-10 H (0-5) /lpf Amorphous Sediment Present A (None Prsent) Urine Opiates Screen (Neg) MDMA (Ecstasy) Screen (Neg) 08/07/20 Range/Units 14:50 RBC (4.7-6.1) M/uL Hgb (14.0-18.0) g/dL Hct (42-52) % RDW Std Deviation (36.4-46.3) fL RDW Coeff of Skyler (11.5-14.5) % Plt Count (130-400) K/uL Lymph # (Auto) (1.2-3.4) K/uL ABG pCO2 (35-46) mmHg ABG pO2 (80-95) mmHg ABG HCO3 (19-24) mmol/L ABG Base Excess (-9-1.8) mEq/L BUN (7-18) mg/dl Creatinine (0.6-1.4) mg/dl BUN/Creatinine Ratio (10-20) Glucose (70-99) mg/dl Lactate (0.4-2.0) mmol/L Calcium (8.5-10.1) mg/dl Total Bilirubin (0.2-1) mg/dl AST (15-37) U/L ALT (12-78) U/L Ammonia (11-32) umol/L Total Protein (6.4-8.2) gm/dl Albumin (3.4-5.0) gm/dl Albumin/Globulin Ratio (0.9-2) Urine Protein (Negative) Urine Ketones (Negative) Urine Bilirubin (Negative) Urine RBC (Auto) (0-4) /hpf U Hyaline Cast (Auto) (0-5) /lpf Amorphous Sediment (None Prsent) Urine Opiates Screen Pos H (Neg) MDMA (Ecstasy) Screen Pos H (Neg) Diagnostic Findings CT OF THE HEAD WITHOUT CONTRAST CLINICAL HISTORY: Confusion. COMPARISON STUDY: Head CT May 19, 2020. CT DOSE: 1842.80 mGy.cm TECHNIQUE: Helical axial images of the head were obtained without IV contrast. Automated exposure control was utilized for the study. A dose lowering technique was utilized adhering to the principles of ALARA. FINDINGS: No acute intracranial hemorrhage, midline shift or mass effect is present. Ventricular system is stable. Basilar cisterns are patent. There are no extra-axial collections. There are no findings to suggest acute dural sinus thrombosis or acute territorial infarct. 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 There is no calvarial fracture. There is mild sinus mucosal thickening. Gas within the left orbit and cavernous sinus is related to IV. IMPRESSION: No acute intracranial findings. No change in appearance of the brain. Medications Administered Discontinued Medications Sodium Chloride (Nss) 500 mls @ 999 mls/hr IV .Q31M [facility] Stop: 08/07/20 13:45 Last Infusion: 08/07/20 14:06 Dose: 0 mls/hr Documented by: [id number] Admin: 08/07/20 13:25 Dose: 999 mls/hr Documented by: [id number] Sodium Chloride (Nss 1000ml) 500 mls @ 999 mls/hr IV .Q31M [facility] Stop: 08/07/20 16:17 Last Infusion: 08/07/20 16:55 Dose: 0 mls/hr Documented by: [id number] Admin: 08/07/20 16:17 Dose: 999 mls/hr Documented by: [id number] Home Medications cholecalciferol (vitamin D3) 5,000 unit PO QAM 02/13/18 [History Confirmed 08/07/20] cyanocobalamin (vitamin B-12) 1,000 mcg tablet 1,000 mcg PO QAM #90 tab 09/18/18 [History Confirmed 08/07/20] ferrous sulfate 325 mg (65 mg iron) tablet 325 mg PO QAM tab 09/18/18 [History Confirmed 08/07/20] aspirin 81 mg tablet,delayed release 81 mg PO QAM tab 10/30/18 [History Confirmed 08/07/20] docusate sodium 100 mg capsule 100 mg PO BID PRN 01/17/20 [History Confirmed 08/07/20] polyethylene glycol 3350 [Miralax] 17 g PO DAILY PRN #30 ea 05/08/20 [Rx Confirmed 08/07/20] dronabinol 2.5 mg capsule 5 mg PO BID #60 cap 05/15/20 [Rx Confirmed 08/07/20] acetaminophen [Tylenol Extra Strength] 500 mg PO Q6H PRN 05/24/20 [History Confirmed 08/07/20] metformin 500 mg PO BID #360 tab 05/26/20 [Rx Confirmed 08/07/20] furosemide 40 mg tablet 60 mg PO QAM 05/28/20 [History Confirmed 08/07/20] atorvastatin 40 mg tablet 40 mg PO HS #90 tab 06/03/20 [Rx Confirmed 08/07/20] fluoxetine 20 mg tablet 40 mg PO QAM #270 tab 07/20/20 [Rx Confirmed 08/07/20] lorazepam 0.25 - 0.5 mg PO HS PRN 08/07/20 [History Confirmed 08/07/20] morphine concentrate 0.5 mg PO DAILY PRN 08/07/20 [History Confirmed 08/07/20] trazodone 50 mg PO QPM 08/07/20 [History Confirmed 08/07/20] Active Medications Dextrose/Lactated Ringer's (D5w And Lactated Ringers) 1,000 mls @ 80 mls/hr IV .[id number] [facility] Stop: 09/06/20 17:59 ECG Additional Comments: Sinus rhythm with 1st degree A-V block Left axis deviation Possible Lateral infarct , age undetermined Abnormal ECG Code Status & VTE Plan Code Status CODE: DNR/DNI VTE: none secondary to palliative VTE Prophylaxis Plan VTE Prophylaxis will be ordered: No Reason for no VTE drug order: Treatment not indicated Supervising Physician Co-Signing Physician Notes Attending Attestation: Pt seen/examined, chart reviewed, care plan d/w FAHAD Kevin. I agree w/ the parmar components of his documentation. 80yo male with known stage 4 pancreatic cancer, currently on hospice. Also with past h/o chronic systolic CHF 2nd ischemic cardiomyopathy, ICD, T2DM, BPH, HTN. Presented from home due to worsening mental status, poor oral intake, etc. Labs at admission with YELENA, pancytopenia, transaminitis. I had a lengthy discussion in ER with pt's , son, and several other family members. Given his progressive cancer and hospice status I did NOT recommend extensive work-up for the altered MS (MRI brain, additional CTs, etc). Family in agreement with conservative Rx -- gentle IV fluids overnight, observation. PMH, PSH, allergies, meds, sochx, famhx - reviewed vitals - BPs low; afebrile gen - lethargic, altered mouth - MMM dry neck - no JVD heart - RRR lungs - CTA b/l abd - soft, NT, BS+ ext - no edema neuro - positive babinski's bilaterally labs, imaging reviewed A/P: 1. stage 4 pancreatic ca on hospice 2. pancytopenia 3. transaminitis - new 4. YELENA 5. chronic systolic CHF 6. metabolic encephalopathy and/or toxic encephalopathy (morphine) 7. abnormal neuro exam (presence of Babinski's) admit for observation gentle IV fluids treat any discomfort/pain/dyspnea social work assistance in am to help transition patient back home w/ hospice family in agreement w/ this plan Sathish Hines MD PG Care Time/CCT Total # of Minutes Spent Total Time Spent with Patient: Total time spent is greater than 50% in coordination of care (as documented) at patient's floor/unit and/or counseling patient: Coding Level of Care Code 77146 OBS Care - Level 3 Diagnoses Pancreatic cancer C25.9 Pancreatic malignancy location: unspecified YELENA (acute kidney injury) N17.9 Altered mental status R40.0 Altered mental status type: somnolence Palliative care encounter Z51.5 (1) Pancreatic cancer Pancreatic malignancy location: unspecified Qualified Code(s): C25.9 - Malignant neoplasm of pancreas, unspecified (2) Altered mental status Altered mental status type: somnolence Qualified Code(s): R40.0 - Somnolence
[2020-08-07] MEDS: D5W AND LACTATED RINGERS 1,000 ML IV SCH (19:45)
[2020-08-07] MEDS ORDERED: ONDANSETRON INJ 2 MG/ML 2 ML VIAL IV PRN (19:58)
[2020-08-07] MEDS ORDERED: LORazepam 0.5 MG/1 ML VIAL IV PRN (19:58)
[2020-08-07] MEDS ORDERED: MoRPHine SULFATE 2 MG/ML CARP IV PRN (19:58)
[2020-08-07] MEDS ORDERED: DOCUSATE SODIUM 100 MG CAP PO PRN (19:58)
[2020-08-07] MEDS ORDERED: ACETAMINOPHEN 500 MG TAB PO PRN (20:26)
[2020-08-07] MEDS ORDERED: LORazepam 0.5 MG TAB PO PRN (20:38)
[2020-08-07] MEDS ORDERED: MELATONIN 3 MG TAB PO PRN (20:38)
[2020-08-08 06:19] LABS: BUN Creatinine Ratio 29.9 (10-20); Calcium 8.7 mg/dl (8.5-10.1); Creatinine Clr Calc Pharmacy 44.9 ml/min; Est GFR (African American) 53.2; Est GFR (Non-African American) 45.9; Potassium 3.6 mmol/L (3.5-5.1)
--- NOTE | 2020-08-08 07:30 | Electrocardiogram Report ---
Test Reason : Blood Pressure : / mmHG Vent. Rate : 096 BPM Atrial Rate : 096 BPM P-R Int : 224 ms QRS Dur : 122 ms QT Int : 392 ms P-R-T Axes : 033 -65 094 degrees QTc Int : 495 ms Poor data quality, interpretation may be adversely affected Sinus rhythm with 1st degree A-V block Left axis deviation Possible Lateral infarct , age undetermined Abnormal ECG When compared with ECG of 24-MAY-2020 08:02, Premature ventricular complexes are no longer Present Premature atrial complexes are no longer Present Confirmed by Jason Davis ([id number]) on 08/08/2020 7:30:34 AM Referred By: Confirmed By:Jason Davis
[2020-08-08] MEDS: D5W AND LACTATED RINGERS 1,000 ML IV SCH (10:37)
--- NOTE | 2020-08-08 11:31 | Discharge Summary ---
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 He was enrolled in hospice in June secondary to inability to tolerate treatment and disease progression. He does have a dual chamber ICD which he has declined to not turn off. He has been functioning well at home and still able to get up and go outside, walk around, and continue to remain semi-independent with his ADLs and dietary intake, he is on oxygen at home. The patient received his COVID vaccine ~ 1 week ago. His reports that over the past 3-4 days he has been more fatigued and short of breath and he has also had a decrease in is oral intake. He is on Morphine at home for his breathing, and he received a dose this morning at 0300. He was brought into the EMD as his removed him from palliative care today because of perceived no benefit. She feels that she is providing him all his medical care, administering his Meds and providing the nursing care. She was concerned for his increase in fatigue and somnolence. In the EMD he had a CT scan of the head which did not show any acute processes, he also had extensive workup, looking for infective causes and/or metabolic encephalolithic causes. Lab work revealed an YELENA and elevated LFTs. The hospitalist team was notified for admission evaluation. I had an extensive conversation with the patient's regarding the above lab work and treatable causes for his mentation and evidence of progression of organ dysfunction. The patient is progressing with his heart failure and organ dysfunction worsening from decreased intake. In regards to his renal function, Will attempt IVF resuscitation - he received (~800 ml of crystalloid upon arrival to the EMD) and if no improvement in his organ function/mentation then the would like to take him back home for his transition. If he has evidence of pulmonary edema worsening, we will stop his IVF. Admission Exam Per Admitting Provider General: somnolent, opens eyes to trapezius squeeze and makes eye contact then closes his eyes Head: Normocephalic, atraumatic ENT: PERRLA, no pharyngeal exudate, mucous membranes moist Neuro: AAO x 0, followed command to squeeze fingers, and does reposition feet. Chest: equal rise and fall of the chest, no accessory muscle use, no heaves or thrills, scattered crackles, on room air, Cardiac: Regular rate and rhythm, telemetry reviewed, skin warm dry, cap refill <3 seconds, peripheral pulses +2 no JVD, no murmur, no edema GI: NABS x 4 quadrants, soft, nontender to palpation, no rebound, guarding or tenderness : Spontaneously voiding, no pain, no CVA tenderness, Extremities: Normal inspection, no peripheral edema or erythema, calfs nontender to palpation Psych: Normal mood and affect Skin: no rash or erythema Principal Diagnosis Stage IV cancer- palliative care Discharge Exam General: Up awake in the chair conversing with family. Alert and oriented x2 Head: Normocephalic, atraumatic ENT: PERRLA, no pharyngeal exudate, mucous membranes moist Neuro: AAO x 2 (person and place), speech clear and appropriate, moves all extremities, strength 5/5, Chest: equal rise and fall of the chest, no accessory muscle use, no heaves or thrills, scattered crackles, Cardiac: Regular rate and rhythm, skin warm, cap refill <3 seconds, peripheral pulses +2 no JVD, no murmur, (+) 2 edema lower extremities GI: NABS x 4 quadrants, soft, nontender to palpation, no rebound, guarding or tenderness : Spontaneously voiding, no pain, no CVA tenderness, Extremities: Normal inspection, no peripheral edema or erythema, calfs nontender to palpation Psych: Normal mood and affect Skin: no rash or erythema, upper extremity bruising from blood draws, Discharge Data Allergies Allergy/AdvReac Type Severity Reaction Status Date / Time Penicillins Allergy Mild 35 YRS AGO Verified 08/07/20 15:12 DEVELOPED RASH sertraline Allergy Unknown DID NOT Verified 08/07/20 15:12 TOLERATE MED Consultations 08/07/20 16:19 ED Decision to Admit Stat 08/07/20 19:58 Consult Palliative Care Routine Ordered Studies 08/07/20 13:09 CT head/brain wo con Stat Hospital Course (1) Pancreatic cancer: Stage IV metastatic adenocarcinoma - Goal as above, attempt reversing progressive organ dysfunction with hydration - Patient can eat and drink as he tolerates - Back to home this morning with hospice care, continue supportive care - Morphine for pain and/or air hunger/difficulty breathing (2) YELENA (acute kidney injury): Continue home medications and drink when thirsty - Likely contributing factor to not clearing sedating medications from yesterday and decrease intake - Morphine as above, can reduce dose to 0.25mg-0.5 mg as needed - Making adequate urine this morning x3 (3) Altered mental status: As above, see if mentation clears with organ dysfunction improvement. - Greatly improved this morning, as medications have cleared - Skin and perfusion is warmer than previous day (4) Palliative care encounter: Reviewed abnormal labs and treatments of reversible cause/pathologies. - IVF, oxygen, pain medication for worsening dyspnea, air hunger, pain - Morphine as above - Trazadone if needed at PM - Ativan if anxious - Hospice through case managment Total Time Total Time Spent Total Time Spent (In Minutes): 40 minutes Discharge Plan Discharge Items Patient Disposition: Hospice - Home Reason For Visit: PALLIATIVE CARE Discharge Diagnosis: Stage IV adenocarcinoma pancreatic with metastatic disease. Condition on Discharge: Fair Goals: stay hydrated and space out sedating medication administration if patient is comfortable. Activity: Resume your previous activity Lifting: Gradually increase as tolerated Bathing: No limitations Driving/Machine Use: No driving cars Non-emergency contact: Primary Care Provider Call non-emergency contact if: you have any medication questions Follow-up/Referrals: Barbara Calles DO [Primary Care Provider] - 08/20/20 9:20 am Holden Mattson MD [Physician] - 08/14/20 10:00 am (may consult pulmonary for evaluation of palliative drainage of effusion ) Diet: Regular Addtl Attending Provider Instructions: Continue previous home medications. Continue to drink when you are thirsty, no diet or fluid restrictions. Hospice care to resume at home. Call PCP and hospice for care questions or questions regarding medication administration at home. Pending Studies at Discharge: No Stand-Alone Forms: My [facility] Sounds[facility] Medications and DC Order Prescriptions: Continued lorazepam 0.5 mg tablet 0.25 - 0.5 mg PO HS PRN (Reason: Insomnia) RF: 0 morphine concentrate 100 mg/5 mL (20 mg/mL) Solution 0.5 mg PO DAILY PRN (Reason: Pain) RF: 0 Discontinued atorvastatin [Lipitor] 40 mg tablet 40 mg PO HS Qty: 90 RF: 1 aspirin 81 mg tablet,delayed release (DR/EC) 81 mg PO QAM RF: 0 ferrous sulfate 325 mg (65 mg iron) tablet 325 mg PO QAM RF: 0 cyanocobalamin (vitamin B-12) 1,000 mcg tablet 1,000 mcg PO QAM Qty: 90 RF: 0 cholecalciferol (vitamin D3) 5,000 unit Capsule 5,000 unit PO QAM RF: 0 metformin 500 mg tablet extended release 24 hr 500 mg PO BID Qty: 360 RF: 1 trazodone 100 mg tablet 50 mg PO QPM RF: 0 Discharge Orders: Discharge Order (Routine); Ordered 08/08/20 Ordered By: Slim Farley/Other Patient Handouts: Shortness of Breath Maximizing ... Admission Data Admit Date/Time: 08/07/20 18:16 Attending Provider: Jyoti Perez Admit Provider: Slim Kevin Primary Care Provider: Barbara Calles Other Providers: Sathish Hines Karen L. Other Interventions: Discharge Summary Assessment (RN) Last Done: 08/08/20 12:17 Supervising Physician Co-Signing Physician Notes Attending Attestation and Discharge Note: Pt seen/examined, chart reviewed, discharge care plan d/w [employer] Slim Kevin. I agree w/ the parmar components of his documentation. 80yo male with known stage 4 pancreatic cancer on hospice prior to admission. Also with past h/o chronic systolic CHF 2nd ischemic cardiomyopathy, ICD, T2DM, BPH, HTN. Presented from home due to worsening mental status, poor oral intake, etc. Labs at admission with YELENA, pancytopenia, transaminitis. Patient was very lethargic at presentation. Given his progressive cancer and hospice status I did NOT recommend extensive work-up to family at time of admission. Rather, conservative Rx advised - gentle fluids, observation, treatment of symptoms. On AM of hospital day #2 patient was awake, alert, attempting to eat/drink small amounts. Requesting to go home. Family agreeable to having Mr Grimse return home w/ hospice. Etiology of altered mental status - medications (morphine)? severe insomnia? stroke? infectious process? other? Social work assisted on day of discharge with transition back home w/ hospice. Pt reported orthopnea and SCHULTZ w/ minimal activity. He has malignant pleural effusions. If he feels strongly he can see Dr Holden Mattson in the [facility] pulmonary clinic for consideration of pleurX catheter for symptom management. vitals - stable, no fever gen - lethargy - resolved; awake/alert mouth - MMM neck - no JVD heart - RRR lungs - CTA b/l but decreased BS bases, worse on left abd - soft, NT, BS+ ext - no edema A/P: 1. stage 4 pancreatic ca on hospice 2. pancytopenia 3. transaminitis 4. YELENA 5. chronic systolic CHF 6. metabolic encephalopathy and/or toxic encephalopathy - improved d/c unnecessary meds upon d/c (metformin, etc) oxygen hospital bed consider referral to Dr Mattson for pleurX for left pleural effusion if desired; this may help dyspnea d/c home w/ hospice Sathish Hines MD Coding Level of Care Code D/C Day Management >30 mins Diagnoses Pancreatic cancer C25.9 Pancreatic malignancy location: unspecified YELENA (acute kidney injury) N17.9 Altered mental status R40.0 Altered mental status type: somnolence Palliative care encounter Z51.5
[2020-08-12 13:22] LABS: Codeine Urine NEGATIVE ng/mL (<50); Hydrocodone Urine NEGATIVE ng/mL (<50); Hydromor Urine 110 ng/mL (<50); MDA negative; MDEA negative; MDMA (Ecstasy) Urine, Confirm negative; Morphine Urine >10000 ng/mL (<50); Norhydrocodone Conf Ur NEGATIVE ng/mL (<50); Noroxycodone Urine NEGATIVE ng/mL (<50); Oxycodone Urine NEGATIVE ng/mL (<50); Oxymorph Urine NEGATIVE ng/mL (<50)
== END 2020-08-08 12:57 | disposition hospice, home (50) ==
LOC: ED 12:31 → 3E 18:16 → SUATTDRO 18:16 → INTOOBSV 18:16 → 3E 19:36